=== PATIENT | male | born 1955 | race Caucasian/White ===

== ENCOUNTER 2020-04-20 09:44 | Emergency (ER) | payer MEDICARE, SELFPAY ==
[2020-04-20 09:56] VITALS: PULSE 90; RESP 18; TEMP 36.1; O2SAT 95; BMI 27.3
--- NOTE | 2020-04-20 10:09 | XR_ITS ---
WS: [id number] Mandible series, 5 views, 04/20/2020 Clinical Data: right side open sore, infected x months Comparison: None. Findings: The patient is edentulous except for tooth #32, an impacted wisdom tooth at the right angle of the ma ndible. No fractures or dislocations of the mandible can be seen. The facial bones are intact. No bon e destruction or erosion is seen. The patient has had an anterior cervical disc fusion of the lower c ervical spine. XR/XR mandible min 4V [id number] Impression: Negative mandible series
--- NOTE | 2020-04-20 10:11 | W.ED.DENTAL ---
HPI - Dental/Oral General: Chief complaint: Dental/Oral Stated complaint: DENTAL Time Seen by Provider: 04/20/20 09:44 History of Present Illness: HPI Narrative: Patient states he had his teeth out 7 8 months ago but he is got open sore in his right mandible that is been draining pus for the last few weeks and just getting worse he says he can wear his upper dentures but he cannot wear his lower and is rubbed open area there Onset (ago): week(s) Duration: constant Severity: mild Associated symptoms: Denies fever(s) Review of Systems Const: Denies: fever(s), chills or body aches Eyes: Denies: change in vision or blurry vision ENMT: Reports: other (Sore inside his mouth from dentures upper plate rubbing on gum); Denies: throat pain or nasal congestion Card: Denies: chest pain or dyspnea on exertion Resp: Denies: dyspnea, productive cough or non-productive cough GI: Denies: abdominal pain, nausea or vomiting : Denies: difficulty urinating Musc: Denies: extremity pain Skin/Breast: Denies: rash Neuro: Denies: headache(s) Psych: Denies: anxiety or depression Roge/Lymph: Denies: easy bruising PFS ED PFSH: Social History (Updated 10/21/19 @ 10:36 by Aga London LPN) Smoking and tobacco status: current every day smoker Physical Exam Const: COMMON NORMALS: no acute distress, average body habitus and patient oriented x3 HENMT: COMMON NORMALS: normocephalic HEAD & SCALP: normal to inspection and normocephalic FACE & SINUS: normal facial exam MOUTH: other (Has an open sore that he is able to push on his mandible at the rear area where his wisdom tooth would normally be located and can push pus from there is about 1 to 2 mm in size no redness or swelling noted around it no swelling in the lymph glands in the jaw does not appear tender) Eye: COMMON NORMALS: conjunctivae normal GENERAL EYE: appearance normal, both eyes and all related structures CONJUNCTIVA: Yes conjunctivae normal Neck/C-Spine: COMMON NORMALS: no JVD Chest: COMMONS NORMALS: normal inspection of the chest Resp: COMMON NORMALS: normal respiratory effort and clear to auscultation bilaterally AUSCULTATION: clear to auscultation bilaterally Cardio: COMMON NORMALS: no JVD, regular rate and regular rhythm RATE: regular rate RHYTHM: regular rhythm GI: COMMON NORMALS: Normal to inspection, nondistended, normoactive bowel sounds present Extremity: COMMON NORMALS: normal to inspection and full ROM Neuro: COMMON NORMALS: patient oriented x3 Course Vital Signs: Vital signs: Vital Signs Temperature 96.9 F L 04/20/20 09:56 Pulse Rate 90 04/20/20 09:56 Respiratory Rate 18 04/20/20 09:56 Pulse Oximetry 95 04/20/20 09:56 Discharge Plan Discharge Prescriptions: No Action lisinopril 5 mg tablet 5 mg PO DAILY RF: 0 venlafaxine 75 mg capsule,extended release 24hr 75 mg PO DAILY RF: 0 aspirin [Adult Aspirin Regimen] 81 mg tablet,delayed release (DR/EC) 81 mg PO DAILY RF: 0 ondansetron HCl [Zofran] 4 mg tablet 4 mg PO Q6H MDD 3 tablets per day PRN (Reason: nausea and vomiting) Qty: 20 RF: 0 lisinopril 5 mg tablet 5 mg PO DAILY Qty: 90 RF: 3 Coding Level of Care Code ED [employer] 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
[2020-04-20 11:08] VITALS: BP 164/86; PULSE 83; RESP 16; O2SAT 95
== END 2020-04-20 11:08 | disposition home or self-care (01) ==
PROVIDERS: Emergency Provider Nurse Practitioner Family; PCP Family Medicine
DX: K08.89 Other specified disorders of teeth and supporting structures (principal); Z79.82 Long term (current) use of aspirin; F17.210 Nicotine dependence, cigarettes, uncomplicated
CPT/HCPCS: 12345; 70110; 87070; 87077; 87186; 99281; 99283

== ENCOUNTER → 2022-09-11 14:26 | Outpatient (BNVA) | payer OTHER, SELFPAY | PROVIDERS: PCP Family Medicine; Visit Provider Specialist | DX: M79.641 Pain in right hand (principal); M79.642 Pain in left hand; R20.0 Anesthesia of skin; R20.2 Paresthesia of skin | CPT/HCPCS: 73130 ==

== ENCOUNTER → 2023-04-17 10:42 | Outpatient (BNVA) | payer OTHER, SELFPAY | PROVIDERS: PCP Family Medicine Adult Medicine; Visit Provider Family Medicine Adult Medicine | DX: I10 Essential (primary) hypertension (principal); R10.11 Right upper quadrant pain; R16.0 Hepatomegaly, not elsewhere classified; M79.641 Pain in right hand; M79.642 Pain in left hand; M79.2 Neuralgia and neuritis, unspecified; I25.10 Atherosclerotic heart disease of native coronary artery without angina pectoris; G47.00 Insomnia, unspecified | CPT/HCPCS: 80053; 84443; 85007; 85027; 85651; 86431 ==

== ENCOUNTER 2023-04-21 20:57 | Emergency (ER) | payer MEDICARE, SELFPAY ==
[2023-04-21 21:02] VITALS: BP 101/71; PULSE 96; RESP 29; TEMP 36.9; O2SAT 92; BMI 22.1
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
[2023-04-21] MEDS: tetanus-dipt-pertussis 0.5 mL SDV IM (21:51)
== END 2023-04-22 00:01 | disposition home or self-care (01) ==
PROVIDERS: Emergency Provider Emergency Medicine; PCP Family Medicine Adult Medicine
DX: S09.8XXA Other specified injuries of head, initial encounter (principal); S20.211A Contusion of right front wall of thorax, initial encounter; I25.10 Atherosclerotic heart disease of native coronary artery without angina pectoris; E78.5 Hyperlipidemia, unspecified; I10 Essential (primary) hypertension; Z95.1 Presence of aortocoronary bypass graft; F17.210 Nicotine dependence, cigarettes, uncomplicated; Y04.2XXA Assault by strike against or bumped into by another person, initial encounter; Y07.44 Child, perpetrator of maltreatment and neglect; Z79.82 Long term (current) use of aspirin; S00.83XA Contusion of other part of head, initial encounter; Z23 Encounter for immunization
CPT/HCPCS: 70450; 71101; 90471; 90715; 99284

== ENCOUNTER 2023-05-18 08:14 | Inpatient (IN) | payer MEDICARE, SELFPAY ==
[2023-05-18] VITALS (18 sets, daily range): BP systolic 150–178; BP diastolic 79–99; PULSE 61–90; RESP 16–22; TEMP 36.5–36.7; O2SAT 94–100
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
--- NOTE | 2023-05-18 08:37 | CTR_ITS ---
PROCEDURE INFORMATION: Exam: CT Abdomen And Pelvis With Contrast Exam date and time: 05/18/2023 9:35 AM Age: 67 years old Clinical indication: Abdominal pain; Acute; Prior surgery; Surgery date: 6+ months; Surgery type: Appy; Additional info: Abd pain TECHNIQUE: Imaging protocol: Computed tomography of the abdomen and pelvis with contrast. Radiation optimization: All CT scans at this facility use at least one of these dose optimization techniques: automated exposure control; mA and/or kV adjustment per patient size (includes targeted exams where dose is matched to clinical indication); or iterative reconstruction. Contrast material: OMNI 350; Contrast volume: 100 ml; Contrast route: INTRAVENOUS (IV); REPORTING DATA: Count of CT and Cardiac NM exams in prior 12 months: This patient has received [address] and 0 known cardiac nuclear medicine studies in the 12 months prior to the current study. COMPARISON: CR (CHEST, ) 04/21/2023 9:25 PM RADIATION DOSE METRICS: Total DLP (mGy-cm): 418.85 FINDINGS: Lungs: There is gravity dependent and streaky atelectasis is noted at the lung bases. Liver: Normal. No mass. Gallbladder and bile ducts: The gallbladder is partially contracted with a layering calcific stone in the fundus. Pancreas: Normal. No ductal dilation. Spleen: Normal. No splenomegaly. Adrenal glands: Normal. No mass. Kidneys and ureters: The kidneys enhance symmetrically and there is no hydronephrosis. Left renal hilar calcifications are vascular. Stomach and bowel: There is a large enterocolic intussusception involving the terminal ileum and ascending segment of the colon extending into the transverse segment. Heterogeneous enhancement of the apex of the intussusception is suspicious for neoplasm which is likely the cause of the intussusception. Appendix: No evidence of appendicitis. Intraperitoneal space: There is a small amount of free pelvic fluid. Vasculature: Unremarkable. No abdominal aortic aneurysm. Lymph nodes: Unremarkable. No enlarged lymph nodes. Urinary bladder: The urinary bladder is contracted. Reproductive: Unremarkable as visualized. Bones/joints: Lumbar spondylosis is noted. Soft tissues: Unremarkable. CT/CT abdomen pelvis w con* [id number] IMPRESSION: Large enterocolic intussusception, likely due to malignancy. Recommend surgical consultation. THIS REPORT CONTAINS FINDINGS THAT MAY BE CRITICAL TO PATIENT CARE. The findings were verbally communicated via telephone conference with MIRIAM HDEZ at 10:06 AM CDT on 05/18/2023. The findings were acknowledged and understood.
[2023-05-18 08:56] LABS: Basophils # 0.1 10^3/uL (0.0-0.1); Basophils % 0.7 %; Eosinophils # 0.4 10^3/uL (0.0-0.8); Eosinophils % 3.6 %; Lymphocytes # 1.5 10^3/uL (0.8-4.8); Lymphocytes % 14.3 %; Mean Corpuscular HGB Conc 30.3 g/dL (30-55); Mean Corpuscular Hemoglobin 23.6 pg (27-33); Mean Corpuscular Volume 77.8 fl (82-101); Mean Platelet Volume 9.5 fL (7.4-10.4); Monocytes # 0.6 10^3/uL (0.2-0.9); Monocytes % 6.1 %; Neutrophils # 7.73 10^3/uL (1.8-7.7); Nucleated Red Blood Cells % 0 %; Platelet Count 535 10^3/cmm (157-399); Red Blood Count 4.37 10^6/uL (3.85-5.65); Red Cell Distribution Width 16.6 % (12.1-15.1)
[2023-05-18 09:17] LABS: Alanine Aminotransferase 7 U/L (0-41); Albumin Level 3.8 g/dL (3.5-5.2); Alkaline Phosphatase 88 U/L (40-130); Anion Gap 14.4 (5-19); Aspartate Amino Transferase 10 U/L (0-40); Blood Urea Nitrogen 16 mg/dL (8-23); Calcium 9.2 mg/dL (8.5-10.5); Carbon Dioxide 27 mmol/L (22-29); Chloride 100 mmol/L (98-107); Creatinine Clr Calc Pharmacy 92.9589; Globulin 3.2 g/dL (1.3-4.6); Glomerular Filtration Rate 96.7 mL/min (90-130); Glucose 117 mg/dL (65-115); Lipase 24 U/L (13-60); Osmolality Calculated 286 mOsm/kg (285-295); Potassium 4.4 mmol/L (3.5-5.1); Sodium 137 mmol/L (136-145); Total Bilirubin 0.2 mg/dL (0.15-1.2)
[2023-05-18 09:21] LABS: Add Urine Culture? No; Add Urine Microscopic? YES; Bacteria Urine TRACE /hpf; Bilirubin Urine Neg (Negative); Blood Urine Neg (Negative); Glucose Urine UA Norm (Normal); Ketones Urine Negative (Negative); Leukocyte Esterase Urine Negative (Negative); Mucus Urine 1+ /hpf; Nitrate Urine Negative (Negative); Protein Urine Trace (Negative); RBC Urine 0-4 /hpf (0-2); Squamous Epithelial Cell Urine 0-4 /hpf (0-5); Urine Appearance Clear (CLEAR); Urine Color Yellow (Yellow); Urobilinogen Urine Norm (Negative); WBC Urine 0-4 /hpf (0-5); pH Urine 5 (5-7)
[2023-05-18] MEDS: iohexol 350 mg/mL 500 mL Btl (per mL) IV (09:39)
--- NOTE | 2023-05-18 09:44 | PC.NURSE ---
pt off unit, went to CT
--- NOTE | 2023-05-18 10:50 | XRR_ITS ---
PROCEDURE INFORMATION: Exam: XR Chest Exam date and time: 05/18/2023 5:00 PM Age: 67 years old Clinical indication: Dyspnea; Additional info: Dyspnea/cough TECHNIQUE: Imaging protocol: Radiologic exam of the chest. Views: 1 view. COMPARISON: CR (CHEST, ) 04/21/2023 9:25 PM FINDINGS: Tubes, catheters and devices: Enteric tube seen entering into the stomach and terminating outside the field of view. Lungs: Unremarkable. No consolidation. Pleural spaces: Unremarkable. No pleural effusion. No pneumothorax. Heart/Mediastinum: Unremarkable. No cardiomegaly. Bones/joints: ACDF hardware noted in the lower cervical spine. XR/XR chest 1V portable [id number] IMPRESSION: No acute findings.
--- NOTE | 2023-05-18 10:50 | ECG_ITS ---
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 Measurements Intervals [place] Rate: 60 P: 61 NV: 195 QRS: 64 QRSD: 94 T: 63 QT: 403 QTc: 403 Interpretive Statements SINUS RHYTHM Compared to ECG 10/04/2014 07:41:00 No significant changes Electronically Signed On 05-18-2023 14:39:47 CDT by Juan Young M.D. [id number]
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
[2023-05-18] MEDS: piperacillin-tazobactam 3.375 GM in sodium chloride 0.9% (plus) 50 ML IV (11:06)
--- NOTE | 2023-05-18 11:09 | PC.NURSE ---
20G IV in R A/C and L A/C, pt placed in gown, urinary cath placed prior to surgery
[2023-05-18] MEDS: fentaNYL 50 mcg/mL INJ 2mL 100 MCG IVP (11:35)
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
[2023-05-18] MEDS: midazolam 1 mg/mL INJ 2 mL 2 MG IVP (11:49)
[2023-05-18] MEDS: sodium chloride 0.9% 1,000 ML 30 ML IV (11:50)
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
[2023-05-18] MEDS: metroNIDAZOLE IV 500 MG/100 ML PREMIX 100 MG IV (12:17)
--- NOTE | 2023-05-18 14:51 | PC.RESP ---
EKG canceled D/T pt not being available within hour.
--- NOTE | 2023-05-18 15:01 | PM.OP ---
Operative Report Date of procedure: May 18, 2023 Pre-op diagnosis: Large bowel intussusception Post-op diagnosis: Large bowel intussusception, ascending colon mass Procedure done: Exploratory laparotomy, lysis of additions, right tom-colectomy with primary anastomosis Specimens removed/disposition: Right colon Surgeon: Enoc Newell MD Surgical Instrument Maker: MAGALYS OR Staff Estimated blood loss: 100cc Complications: none Findings: There was severe lesions of the omentum to the anterior abdominal wall and surrounding the ascending colon. There was a very large colonic intussusception, upon palpation it was apparent that there was a mass in the colon, there was significant inflammation at the level of the vascular pedicle, concerning for infiltrative lymph nodes, extension of the mass was noted up to the level of the retroperitoneum. Brief History: 67-year-old male who presents to the hospital with severe abdominal pain, he had a history of abdominal pain for the last [address] scan done in the ER showed evidence of a very large colonic intussusception involving the terminal ileum and ascending colon into the transverse colon, there was concern for a colonic mass at the level of the intussusception. After extensive discussion regarding the risk of benefits we decided to proceed to the operating room for an emergent right hemicolectomy, as documented in my consult note. Procedure: The patient was brought into the OR, placed in the supine position general esthesia was given. The abdomen was prepped and draped in the usual sterile fashion. Timeout was conducted. A midline laparotomy incision measuring about 20 cm was made, the abdominal cavity was accessed. A extra-large Shon wound protector was then placed in the wound. The omentum was noted to be densely adhesive to the right colon and right anterior abdominal wall, extensive lysis of additions was done using blunt and sharp dissection, once the omentum was liberated it revealed a very large colonic intussusception, which appeared to have a very chronic component with formation of additions from the colon to the retroperitoneum, it was also apparent that there was possible mass at the level of the colon upon palpation, I also noticed severe induration of the mesentery traveling down to the level of the vascular pedicle, which likely indicates infiltrative lymph nodes. I then proceeded with a exploratory laparotomy evaluating the colon small bowel, remainder of the colon, liver, stomach and spleen, no additional infiltrative lesions were identified. I started my dissection by medializing the right colonic mass and taking down the white line of Toldt using electrocautery, but there were severe adhesions noted at this area from the colon to the retroperitoneum, which is not usually encountered. I therefore decided to proceed with the craniocaudal dissection starting by the omentum from the transverse colon, once the omentum was I took down adhesions from the hepatic flexure to the gallbladder and the omentum, the transverse colon and hepatic flexures were completely mobilized revealing a healthy duodenum behind. Once this mobilization was completed I placed my attention to the right colon, I decided to continue the immobilization from the caudal direction, by incising the peritoneum below the area where the cecum was located. Extensive dissection and mobilization was achieved with blunt and sharp dissection taking careful consideration of not injuring any surrounding structures, once the mass was completely mobilized and medialized, it was apparent that infiltrative nodes to the vascular pedicle needed to be resected with the specimen, therefore I decided to proceed with transection of the GI tract before undertaking the dissection of the vascular pedicle. I transected the terminal ileum about 5 cm from the mass using a 75 mm blue load AMADOR stapler, I later transected the transverse colon about 7 cm from the mass using a 75 mm blue load AMADOR stapler. At this point the mass was completely mobilized, severe attachments to the retroperitoneum were taken down using careful dissection and electrocautery, once the vascular pedicle was individualized, I transected the ileocolic vessels at the base using LigaSure. The specimen was completely liberated after transection of the remainder of the mesocolon with ligasure. Hemostasis was verified in the area of the colon bed. I then proceeded to fashion a [id number], functional end-to-end anastomosis between the terminal ileum and the transverse colon I did this with a 75 mm blue load AMADOR stapler, the common enterotomy was then closed with a 60 mm blue load TA stapler. Stay sutures were placed with #3-0 Vicryl to reinforce the anastomosis, I then proceeded to close the mesenteric defect with #3-0 Vicryl. The cavity was then irrigated with warm saline. Hemostasis was verified. Omentum was returned to anatomical position and used to cover the anastomosis. The Shon wound protector was removed, with change instruments and gloves to proceed with closure of the fascia and the skin. The fascia was closed with #1 looped PDS, the fascia was then irrigated with warm saline and the skin closed with giuliano. Sterile dressing was applied at the end of the procedure all counts were correct. The patient was extubated and transferred to the PACU in stable condition, he received a tap block by anesthesia in the PACU.
[2023-05-18] MEDS: fentaNYL 50 mcg/mL INJ 2mL IVP (15:21)
--- NOTE | 2023-05-18 15:24 | ANE.PACU2 ---
Inpatient post-anesthesia follow up: Airway intact: Yes Vital signs: Temperature 97.9 F Pulse Rate 61 Respiratory Rate 18 Blood Pressure 165/79 Pulse Oximetry 98 Oxygen Delivery Me thod Room Air Oxygen Flow Rate 6 Fraction of Inspir ed Oxygen Hydration adequate: Yes Nausea and vomiting: No Pain level: 1 Mental status: Baseline Additional Comments: Bothered by sanon catheter. Denies abdominal pain.
--- NOTE | 2023-05-18 16:55 | ECG_ITS ---
[facility] Test Date: 2023-05-18 Pat Name: Glenn Berg Department: Room: 275 Gender: Male Director Advanced: : 1955 Requested By: Zaid Sebastian Order Number: [id number] Nicol MD: Juan Young M.D. Measurements Intervals [place] Rate: 84 P: 51 OR: 194 QRS: 51 QRSD: 102 T: 43 QT: 382 QTc: 453 Interpretive Statements SINUS RHYTHM Compared to ECG 05/18/2023 10:56:38 No significant changes Electronically Signed On 05-19-2023 16:19:53 CDT by Juan Young M.D. [id number]
[2023-05-18] MEDS: HYDROmorphone 1 mg/mL INJ 1 mL 0.5 MG IVP (17:15)
[2023-05-18 17:47] LABS: INR 1.05 (0.8-1.2)
[2023-05-18 17:48] LABS: Partial Thromboplastin Time 32.4 SECONDS (23.9-36.7)
[2023-05-18] MEDS: sodium chloride 0.9% 1,000 ML 75 ML IV (17:53)
[2023-05-18 17:54] LABS: Lactate (Lactic Acid level) 1.5 mmol/L (0.5-2.2)
[2023-05-18 17:55] LABS: Troponin(5th) Baseline 15 ng/L (0-15)
[2023-05-18 18:00] LABS: C Reactive Protein 18.9 mg/L (0.0-4.9)
[2023-05-18 18:08] LABS: Procalcitonin 0.08 ng/mL (0-0.5)
[2023-05-18] MEDS: pantoprazole 40 mg SDV IVP (18:23)
[2023-05-18] MEDS: morphine 4 mg/mL SDV 1 mL 2 MG IVP (19:43)
[2023-05-18 20:51] LABS: Troponin 5 2HR 22.51 ng/L (0-15)
[2023-05-18 20:55] LABS: Troponin 5 2HR Delta 7.51 ABS# (0-10)
[2023-05-18] MEDS: HYDROmorphone 1 mg/mL INJ 1 mL IVP (22:41)
[2023-05-18 23:47] LABS: Troponin 5 6HR 21.04 ng/L (0-15); Troponin 5 6HR Delta 6.04 ng/L (0-12)
[2023-05-19] VITALS (11 sets, daily range): BP systolic 128–150; BP diastolic 61–74; PULSE 63–90; RESP 16–18; TEMP 36.6–37.6; O2SAT 95–99
[2023-05-19] MEDS: morphine 4 mg/mL SDV 1 mL 2 MG IVP ×2 (00:23→03:55)
[2023-05-19 05:37] LABS: Basophils % 0.1 %; Eosinophils % 0.1 %; Hematocrit 31.4 % (37-53); Lymphocytes # 1.2 10^3/uL (0.8-4.8); Lymphocytes % 8.2 %; Mean Corpuscular HGB Conc 30.3 g/dL (30-55); Mean Corpuscular Hemoglobin 23.3 pg (27-33); Mean Platelet Volume 9.6 fL (7.4-10.4); Monocytes # 0.9 10^3/uL (0.2-0.9); Monocytes % 6.2 %; Neutrophils # 12.01 10^3/uL (1.8-7.7); Neutrophils % 85.1 %; Nucleated Red Blood Cells % 0 %; Platelet Count 472 10^3/cmm (157-399); Red Blood Count 4.08 10^6/uL (3.85-5.65); Red Cell Distribution Width 16.5 % (12.1-15.1); White Blood Count 14.12 10^3/uL (3.29-11.43)
[2023-05-19 05:58] LABS: Alanine Aminotransferase < 5 U/L (0-41); Alkaline Phosphatase 69 U/L (40-130); Anion Gap 14.1 (5-19); Aspartate Amino Transferase 12 U/L (0-40); Blood Urea Nitrogen 16 mg/dL (8-23); Calcium 8.4 mg/dL (8.5-10.5); Carbon Dioxide 26 mmol/L (22-29); Chloride 105 mmol/L (98-107); Creatinine Clr Calc Pharmacy 82.6301; Globulin 3.2 g/dL (1.3-4.6); Glomerular Filtration Rate 84.4 mL/min (90-130); Glucose 112 mg/dL (65-115); Osmolality Calculated 292 mOsm/kg (285-295); Potassium 5.1 mmol/L (3.5-5.1); Sodium 140 mmol/L (136-145); Total Bilirubin 0.3 mg/dL (0.15-1.2); Total Protein 6.2 g/dL (6.6-8.7)
[2023-05-19] MEDS: sodium chloride 0.9% 1,000 ML 75 ML IV ×2 (06:00→21:00)
[2023-05-19 06:10] LABS: Carcinoembryonic Antigen 1.8 ng/mL (0.0-4.7)
--- NOTE | 2023-05-19 07:40 | PM.PN ---
Subjective Subjective: Is a 67-year-old male who presented with a large bowel intussusception likely due to colon cancer. He is postoperative day 1 status post exploratory laparotomy, right hemicolectomy. Patient is stable after surgery, only complaint is incisional pain at the level of the abdomen that has been difficult to control with current regimen. NG tube connected to low intermittent wall suction with minimal output, Juares catheter in place with clear urine. Vitals/I&O/Wt Last Vital Signs Temp 99.7 F H 05/19/23 04:20 Pulse 82 05/19/23 06:00 Resp 17 05/19/23 04:20 BP 136/68 05/19/23 04:20 Pulse Ox 96 05/19/23 04:20 O2 Del Method Room Air 05/18/23 17:39 O2 Flow Rate 6 05/18/23 15:09 05/18/23 05/19/23 05/19/23 22:59 06:59 14:59 Intake Total 100 / 1250 908.75 / 2158.75 Output Total 700 / 700 450 / 1150 Balance -600 / 550 458.75 / 1008.75 Weight last 48 hrs Weight 165 lb Physical Exam Const: OTHER: Alert and oriented, in pain HENMT: OTHER: NG tube in place GI: OTHER: Abdomen is soft, nondistended, surgical incision covered with dressing. There is tenderness to palpation in the prem-incisional area : OTHER: Juares catheter in place. Urinary Catheter Management: Juares: Cath Placed During This Visit: yes Reason for Continuing Indwelling Catheter: Required Immobilization for Trauma or Surgery or Anesthesia Urinary Catheter Date of Insertion: 05/18/23 Urinary Catheter Time of Insertion: 11:15 Data 05/19/23 05:25 05/19/23 05:25 A&P Assessment and plan (1) Colonic mass: (2) Intussusception of colon: Plan After complete history, physical examination and review of all available clinical data the following is my assessment. Patient is showing adequate progress postop. Pain control has remained challenging in the initial postoperative period. At this point may consider is important to start multimodal pain therapy to attempt to control patient's pain. I will start the pain initiating IV Tylenol, IV Toradol and as needed Dilaudid. I have encouraged the patient to ambulate as soon as he feels comfortable with, once patient is ambulating Juares catheter can be removed. NG tube will remain for 24 more hours to allow for return of bowel function. Attestations Medical Necessity Statement*: Patient will require 48 to 72 hours more of hospital stay for management and postoperative care after an open right hemicolectomy. Coding Level of Care Code Acute Code for [facility] Diagnoses Colonic mass K63.89 Intussusception of colon K56.1
[2023-05-19] MEDS: HYDROmorphone 1 mg/mL INJ 1 mL 0.5 MG IVP (08:02)
[2023-05-19] MEDS: ketorolac 30 mg/mL INJ 15 MG IVP ×3 (08:36→20:06)
[2023-05-19] MEDS: acetaminophen 1,000 MG/100 ML PIGGYBACK 400 MG IV ×3 (08:36→22:49)
[2023-05-19] MEDS: HYDROmorphone 1 mg/mL INJ 1 mL IVP ×4 (10:53→21:34)
[2023-05-19] MEDS: pantoprazole 40 mg SDV IVP (17:32)
--- NOTE | 2023-05-19 19:12 | PM.PN ---
Subjective Subjective: Pain in his abdomen despite receiving pain medications this morning. He is worried that turning in bed will trigger pain. Speaking calmly. Does report pain . Vitals/I&O/Wt Last Vital Signs Temp 98.7 F 05/19/23 15:34 Pulse 74 05/19/23 15:34 Resp 18 05/19/23 15:34 BP 150/74 05/19/23 15:34 Pulse Ox 97 05/19/23 15:34 O2 Del Method Room Air 05/19/23 15:34 O2 Flow Rate 6 05/18/23 15:09 05/19/23 05/19/23 05/19/23 06:59 14:59 22:59 Intake Total 908.75 / 2158.75 100 / 100 Output Total 450 / 1150 400 / 400 Balance 458.75 / 1008.75 100 / 100 -400 / -300 Weight last 48 hrs Weight 74.843 kg Physical Exam Narrative: Accompanied by family including his Const: COMMON NORMALS: patient oriented x3 and alert GENERAL APPEARANCE: cooperative ORIENTATION/CONSCIOUSNESS: Yes awake HENMT: COMMON NORMALS: oropharynx normal Neck/C-Spine: COMMON NORMALS: no JVD Resp: COMMON NORMALS: normal respiratory effort and clear to auscultation bilaterally AUSCULTATION: clear to auscultation bilaterally Cardio: COMMON NORMALS: no JVD, regular rhythm, S1 normal heart sound present, S2 normal heart sound present and No murmurs present (Cardio) RHYTHM: regular rhythm HEART SOUNDS: S1 normal heart sound present and S2 normal heart sound present GI: PALPATION: Yes Tenderness to palpation present (GI) OTHER: Midline abdominal dressing Subdued bowel sounds Extremity: COMMON NORMALS: no joint enlargement and no pedal edema Neuro: COMMON NORMALS: patient oriented x3 and moves all extremities SENSORIUM/ORIENTATION: Yes alert Skin: COMMON NORMALS: no rashes or lesions noted GENERAL SKIN EXAM: no rashes or lesions noted Urinary Catheter Management: Juares: Cath Placed During This Visit: yes Reason for Continuing Indwelling Catheter: Required Immobilization for Trauma or Surgery or Anesthesia Urinary Catheter Date of Insertion: 05/18/23 Urinary Catheter Time of Insertion: 11:15 Data 05/19/23 05:25 05/19/23 05:25 A&P Assessment and plan (1) Intussusception of colon: (2) Chronic GERD: (3) CAD (coronary artery disease): (4) Dyslipidemia: (5) HTN (hypertension): (6) Current smoker: Plan Colon intussusception Status post laparotomy, lysis of adhesions, right hemicolectomy with primary stenosis on 05/18. Still in pain, appreciate surgical documentation from this morning, pain Regimen. As he is still in pain nursing reaching out to surgery for additional instructions. Discussed with patient and family certainly if possible reduce opioid use, but sounds like he is requiring more pain control currently. Has required IV Dilaudid. Encouraged getting up and ambulation if pain control will allow. Encourage incentive spirometer. Continue bowel rest, unable to take oral intake yet, reassess for return of bowel function. Gentle IV hydration. CEA reviewed. Blood counts reviewed, noted mild leukocytosis, mild neutrophilia. Mild thrombocytosis. Possibly stress related. Follow-up. Discussed with nursing. Discussed with case management. History of CAD. Free of any chest pain. History of cath in 2014 1-LM has luminal irregularities 2-LAD has 50% mid and diffusely diseased 75% distal tapering vessel stenosis .mid lesion is not significant by FFR (0.91), while distal lesion is significant by FFR (0.80).Since distal vessel is diffusely diseased less than 2.0mm tapering vessel it is not amenable to intervention 3-LCx is a moderate size and caliber vessel with 30% Ostial stenosis 4-RCA is a non dominant small caliber vessel which is chronically occluded in its proximal segment fills in retrogradely from L>R Collaterals from distal LAD Troponin series reviewed. Mild elevation. No peak. Chest x-ray reviewed. Smoker, nicotine replacement as needed Attestations Medical Necessity Statement*: Continue admission for assessment management following intussusception, pending return of bowel function, optimization of pain control. Diagnoses Intussusception of colon K56.1 Chronic GERD K21.9 CAD (coronary artery disease) I25.10 Dyslipidemia E78.5 HTN (hypertension) I10 Current smoker F17.200
[2023-05-20] VITALS (17 sets, daily range): BP systolic 149–178; BP diastolic 65–77; PULSE 53–96; RESP 16–20; TEMP 36.6–37.2; O2SAT 95–97
[2023-05-20] MEDS: ketorolac 30 mg/mL INJ 15 MG IVP ×4 (00:44→22:18)
[2023-05-20] MEDS: HYDROmorphone 1 mg/mL INJ 1 mL IVP ×2 (01:23→06:09)
[2023-05-20] MEDS: pantoprazole 40 mg SDV IVP ×2 (04:49→16:17)
[2023-05-20 05:31] LABS: Basophils # 0.1 10^3/uL (0.0-0.1); Basophils % 0.5 %; Eosinophils # 0.4 10^3/uL (0.0-0.8); Lymphocytes # 1.8 10^3/uL (0.8-4.8); Lymphocytes % 15.1 %; Mean Corpuscular Hemoglobin 23.2 pg (27-33); Mean Corpuscular Volume 77.4 fl (82-101); Mean Platelet Volume 10.4 fL (7.4-10.4); Monocytes # 0.8 10^3/uL (0.2-0.9); Monocytes % 6.9 %; Neutrophils # 8.76 10^3/uL (1.8-7.7); Neutrophils % 74.2 %; Nucleated Red Blood Cells % 0 %; Platelet Count 465 10^3/cmm (157-399); Red Blood Count 3.49 10^6/uL (3.85-5.65); Red Cell Distribution Width 16.7 % (12.1-15.1); White Blood Count 11.82 10^3/uL (3.29-11.43)
[2023-05-20 05:53] LABS: Alanine Aminotransferase < 5 U/L (0-41); Albumin Level 3.1 g/dL (3.5-5.2); Alkaline Phosphatase 62 U/L (40-130); Anion Gap 12.1 (5-19); Aspartate Amino Transferase 15 U/L (0-40); Blood Urea Nitrogen 23 mg/dL (8-23); Calcium 8.4 mg/dL (8.5-10.5); Carbon Dioxide 27 mmol/L (22-29); Chloride 104 mmol/L (98-107); Creatinine Clr Calc Pharmacy 82.6301; Globulin 2.8 g/dL (1.3-4.6); Glomerular Filtration Rate 84.4 mL/min (90-130); Glucose 81 mg/dL (65-115); Osmolality Calculated 291 mOsm/kg (285-295); Potassium 4.1 mmol/L (3.5-5.1); Sodium 139 mmol/L (136-145); Total Bilirubin 0.3 mg/dL (0.15-1.2); Total Protein 5.9 g/dL (6.6-8.7)
--- NOTE | 2023-05-20 07:45 | PM.PN ---
Subjective Subjective: Postoperative day 2 status post expiratory laparotomy right mid colectomy for right colon mass with ileocolonic intussusception. Patient pulled out NG tube overnight. He is doing okay, pain is better controlled, he states that he has been passing some gas from below. Overall looks in good spirits. Vitals/I&O/Wt Last Vital Signs Temp 98.1 F 05/20/23 03:58 Pulse 66 05/20/23 07:29 Resp 16 05/20/23 07:29 BP 169/76 05/20/23 03:58 Pulse Ox 95 05/20/23 07:29 O2 Del Method Room Air 05/20/23 07:29 O2 Flow Rate 6 05/18/23 15:09 05/19/23 05/20/23 05/20/23 22:59 06:59 14:59 Intake Total 1100 / 1200 100 / 1300 Output Total 400 / 400 200 / 600 Balance 700 / 800 -100 / 700 Weight last 48 hrs Weight 165 lb Physical Exam GI: OTHER: Abdomen is soft, appropriately tender to palpation in the prem-incisional area, there is no abdominal distention at the moment. : OTHER: Juares catheter in place Urinary Catheter Management: Juares: Cath Placed During This Visit: yes Reason for Continuing Indwelling Catheter: Other Urinary Catheter Date of Insertion: 05/18/23 Urinary Catheter Time of Insertion: 11:15 Data 05/20/23 04:56 05/20/23 04:56 A&P Assessment and plan (1) Colon cancer: Plan Postoperative day 2 status post ex lap, right Zee colectomy for colonic mass causing ileocolonic intussusception. Patient is progressing well. NG tube was removed overnight. I am okay with the starting clears and see how the patient tolerates. I will switch some of the medication to oral. Juares catheter can be removed, patient is to ambulate. All other management by hospitalist team is appreciated Attestations Medical Necessity Statement*: Patient will require 48 hours or more of hospital stay for postoperative management after ex lap. Coding Level of Care Code Acute Code for [facility] Fwd Diagnoses Colon cancer C18.9
[2023-05-20] MEDS: acetaminophen 1,000 MG/100 ML PIGGYBACK 400 MG IV ×3 (08:17→22:20)
[2023-05-20] MEDS: gabapentin 400 mg Capsule 800 MG PO (09:37)
[2023-05-20] MEDS: lisinopril 5 mg Tablet PO (09:37)
[2023-05-20] MEDS: oxyCODONE 5 mg IR Tab/Cap PO ×2 (09:38→14:13)
[2023-05-20] MEDS: HYDROmorphone 1 mg/mL INJ 1 mL 0.4 MG IVP ×2 (12:16→18:45)
--- NOTE | 2023-05-20 15:24 | P.PN_ITS ---
Subjective Subjective: Pain is slightly better today, although still there. He is working with surgery for optimization of pain control. Discussed with him and his additional strategies. Encouraged also attempted ambulation which he says he intends to try. He is trying diet advancement with clear liquids. No nausea or vomiting. Passing some small amounts of flatus. Vitals/I&O/Wt Last Vital Signs Temp 97.9 F 05/20/23 12:00 Pulse 60 05/20/23 12:00 Resp 17 05/20/23 14:13 BP 162/67 05/20/23 12:00 Pulse Ox 95 05/20/23 12:00 O2 Del Method Room Air 05/20/23 07:29 O2 Flow Rate 6 05/18/23 15:09 05/20/23 05/20/23 05/20/23 06:59 14:59 22:59 Intake Total 100 / 1300 1460 / 1460 Output Total 200 / 600 Balance -100 / 700 1460 / 1460 Physical Exam Narrative: Accompanied by family including his Const: COMMON NORMALS: patient oriented x3 and alert GENERAL APPEARANCE: cooperative ORIENTATION/CONSCIOUSNESS: Yes awake HENMT: COMMON NORMALS: oropharynx normal Neck/C-Spine: COMMON NORMALS: no JVD Resp: COMMON NORMALS: normal respiratory effort and clear to auscultation bila terally AUSCULTATION: clear to auscultation bilaterally Cardio: COMMON NORMALS: no JVD, regular rhythm, S1 normal heart sound present, S2 normal heart sound present and No murmurs present (Cardio) RHYTHM: regular rhythm HEART SOUNDS: S1 normal heart sound present and S2 normal heart sound present GI: PALPATION: Yes Tenderness to palpation present (GI) OTHER: Midline abdominal dressing Present bowel sounds Extremity: COMMON NORMALS: no joint enlargement and no pedal edema Neuro: COMMON NORMALS: patient oriented x3 and moves all extremities SENSORIUM/ORIENTATION: Yes alert Skin: COMMON NORMALS: no rashes or lesions noted GENERAL SKIN EXAM: no rashes or lesions noted Urinary Catheter Management: Juares: Cath Placed During This Visit: yes, but has since been removed by the nurse Reason for Continuing Indwelling Catheter: Decision to DC Catheter Urinary Catheter Date of Insertion: 05/18/23 Urinary Catheter Time of Insertion: 11:15 Date Urinary Catheter Removed: 05/20/23 Time Urinary Catheter Discontinued: 10:20 Data 05/20/23 04:56 05/20/23 04:56 A&P Assessment and plan (1) Intussusception of colon: (2) Chronic GERD: (3) CAD (coronary artery disease): (4) Dyslipidemia: (5) HTN (hypertension): (6) Current smoker: Plan Colon intussusception Pain control slightly better, although still bothersome. Reviewed surgery documentation. Reviewed medication changes. Continued optimization of pain control. Continues on IV Dilaudid, staggered with oxycodone to help try to decrease IV opioid. Discussed risks again with him and his . Encouraged additional pain control modalities. Otherwise NGT has been removed. He is having some bowel sounds. Passing small amounts of flatus. Encouraged ambulation. He is trialing clear liquids. Reviewed symptoms to watch out for, seek medical attention in case of any concerns. Noted afebrile. Noted mild leukocytosis with improvement compared to yesterday on review of CBC. Reviewed electrolytes, kidney function, liver parameters. Discussed with case management. Status post laparotomy, lysis of adhesions, right hemicolectomy with primary anastomosis on 05/18. Stop IV fluid. CEA reviewed. Blood counts reviewed, noted mild leukocytosis, mild neutrophilia. Mild thrombocytosis. Possibly stress related. Follow-up. History of CAD. Free of any chest pain. History of cath in 2015 1-LM has luminal irregularities 2-LAD has 50% mid and diffusely diseased 75% distal tapering vessel stenosis .mid lesion is not significant by FFR (0.91), while distal lesion is significant by FFR (0.80).Since distal vessel is diffusely diseased less than 2.0mm tapering vessel it is not amenable to intervention 3-LCx is a moderate size and caliber vessel with 30% Ostial stenosis 4-RCA is a non dominant small caliber vessel which is chronically occluded in its proximal segment fills in retrogradely from L>R Collaterals from distal LAD Troponin series reviewed. Mild elevation. No peak. Chest x-ray reviewed. Smoker, nicotine replacement as needed Attestations Medical Necessity Statement*: Continue admission for assessment management following intussusception, pending return of bowel function, optimization of pain control. and High MDM includes amount and/or complexity of data reviewed/ordered [ previous or external records, resulted lab(s)/test(s), ordered lab(s)/test(s) and other healthcare professional discussion] and described risk of complication, morbidity or mortality of management as documented Diagnoses Intussusception of colon K56.1 Chronic GERD K21.9 CAD (coronary artery disease) I25.10 Dyslipidemia E78.5 HTN (hypertension) I10 Current smoker F17.200
[2023-05-21] VITALS (12 sets, daily range): BP systolic 154–179; BP diastolic 70–75; PULSE 59–72; RESP 16–19; TEMP 36.4–36.9; O2SAT 96–99
[2023-05-21] MEDS: ketorolac 30 mg/mL INJ 15 MG IVP ×4 (03:26→21:15)
[2023-05-21] MEDS: pantoprazole 40 mg SDV IVP ×2 (03:26→16:04)
[2023-05-21 06:26] LABS: Basophils # 0.1 10^3/uL (0.0-0.1); Basophils % 1.2 %; Eosinophils # 0.9 10^3/uL (0.0-0.8); Eosinophils % 10.2 %; Hematocrit 27.7 % (37-53); Lymphocytes # 1.4 10^3/uL (0.8-4.8); Lymphocytes % 15.5 %; Mean Corpuscular Hemoglobin 23.2 pg (27-33); Mean Corpuscular Volume 77.6 fl (82-101); Mean Platelet Volume 10.2 fL (7.4-10.4); Monocytes # 0.5 10^3/uL (0.2-0.9); Monocytes % 5.7 %; Neutrophils # 6.17 10^3/uL (1.8-7.7); Neutrophils % 67.2 %; Nucleated Red Blood Cells % 0 %; Platelet Count 428 10^3/cmm (157-399); Red Blood Count 3.57 10^6/uL (3.85-5.65); Red Cell Distribution Width 16.7 % (12.1-15.1); White Blood Count 9.18 10^3/uL (3.29-11.43)
[2023-05-21 06:44] LABS: Alanine Aminotransferase < 5 U/L (0-41); Alkaline Phosphatase 65 U/L (40-130); Anion Gap 15.1 (5-19); Aspartate Amino Transferase 14 U/L (0-40); Blood Urea Nitrogen 15 mg/dL (8-23); Calcium 8.7 mg/dL (8.5-10.5); Carbon Dioxide 25 mmol/L (22-29); Chloride 104 mmol/L (98-107); Creatinine Clr Calc Pharmacy 82.6301; Glomerular Filtration Rate 84.4 mL/min (90-130); Glucose 92 mg/dL (65-115); Osmolality Calculated 290 mOsm/kg (285-295); Potassium 4.1 mmol/L (3.5-5.1); Sodium 140 mmol/L (136-145); Total Bilirubin 0.2 mg/dL (0.15-1.2)
--- NOTE | 2023-05-21 06:51 | PM.PN ---
Subjective Subjective: Postoperative day 3 status post exploratory laparotomy, right hemicolectomy for colon mass with intussusception. Patient with a good postoperative course, tolerating clear liquid diet, Juares was removed yesterday he is peeing okay, he is ambulating, has passed significant amount of gas from below. Pain control is now satisfactory. Vitals/I&O/Wt Last Vital Signs Temp 98.1 F 05/21/23 03:55 Pulse 61 05/21/23 05:36 Resp 17 05/21/23 03:55 BP 165/70 05/21/23 03:55 Pulse Ox 96 05/21/23 03:55 O2 Del Method Room Air 05/21/23 03:55 O2 Flow Rate 6 05/18/23 15:09 05/20/23 05/20/23 05/21/23 14:59 22:59 06:59 Intake Total 1460 / 1460 440 / 1900 Output Total 950 / 950 Balance 1460 / 1460 -510 / 950 Physical Exam GI: OTHER: Abdomen is soft, appropriately tender to palpation, nondistended Urinary Catheter Management: Juares: Cath Placed During This Visit: yes, but has since been removed by the nurse Reason for Continuing Indwelling Catheter: Decision to DC Catheter Urinary Catheter Date of Insertion: 05/18/23 Urinary Catheter Time of Insertion: 11:15 Date Urinary Catheter Removed: 05/20/23 Time Urinary Catheter Discontinued: 10:20 Data 05/21/23 05:57 05/21/23 05:57 A&P Assessment and plan (1) Colonic mass: Plan Excellent postoperative progress. We will start on full liquid diet today. The patient tolerated and has a bowel movement we will plan to advance to regular diet. We will continue pain control with multimodal therapy. We will encourage ambulation. Appreciate all other management by hospitalist team Attestations Medical Necessity Statement*: Patient recovering from major abdominal surgery will need to 48 hours or more of hospital stay Coding Level of Care Code Acute Code for [facility] Fwd Diagnoses Colonic mass K63.89
[2023-05-21] MEDS: gabapentin 400 mg Capsule 800 MG PO (10:01)
[2023-05-21] MEDS: lisinopril 10 mg Tablet PO (10:02)
[2023-05-21] MEDS: oxyCODONE 5 mg IR Tab/Cap PO ×3 (11:00→19:32)
--- NOTE | 2023-05-21 11:08 | PC.SOCIAL ---
Pg 2 IMM Explained to pt Pg 2 IMM. No questions voiced. Provided pt a copy. Initialed, dated, & timed a copy & placed in chart.
[2023-05-21] MEDS: acetaminophen 500 mg Tablet PO ×2 (12:38→17:29)
[2023-05-21] MEDS: HYDROmorphone 1 mg/mL INJ 1 mL 0.4 MG IVP ×2 (12:55→17:33)
--- NOTE | 2023-05-21 16:56 | PM.PN ---
Subjective Subjective: He is gradually improving. Has had a bowel movement this afternoon. Pain slightly better still, although not relieved by oxycodone. States he gets pain relief from Dilaudid. Vitals/I&O/Wt Last Vital Signs Temp 97.5 F L 05/21/23 16:00 Pulse 59 L 05/21/23 16:00 Resp 19 H 05/21/23 16:00 BP 166/72 05/21/23 16:00 Pulse Ox 98 05/21/23 16:00 O2 Del Method Room Air 05/21/23 16:00 O2 Flow Rate 6 05/21/23 08:00 05/21/23 05/21/23 05/21/23 06:59 14:59 22:59 Intake Total 960 / 960 Balance 960 / 960 Physical Exam Narrative: Accompanied by family including his . Const: COMMON NORMALS: patient oriented x3 and alert GENERAL APPEARANCE: cooperative ORIENTATION/CONSCIOUSNESS: Yes awake HENMT: COMMON NORMALS: oropharynx normal Neck/C-Spine: COMMON NORMALS: no JVD Resp: COMMON NORMALS: normal respiratory effort and clear to auscultation bilaterally AUSCULTATION: clear to auscultation bilaterally Cardio: COMMON NORMALS: no JVD, regular rhythm, S1 normal heart sound present, S2 normal heart sound present and No murmurs present (Cardio) RHYTHM: regular rhythm HEART SOUNDS: S1 normal heart sound present and S2 normal heart sound present GI: PALPATION: Yes Tenderness to palpation present (GI) OTHER: Midline abdominal dressing Present bowel sounds Extremity: COMMON NORMALS: no joint enlargement and no pedal edema Neuro: COMMON NORMALS: patient oriented x3 and moves all extremities SENSORIUM/ORIENTATION: Yes alert Skin: COMMON NORMALS: no rashes or lesions noted GENERAL SKIN EXAM: no rashes or lesions noted Urinary Catheter Management: Juares: Cath Placed During This Visit: yes, but has since been removed by the nurse Reason for Continuing Indwelling Catheter: Decision to DC Catheter Urinary Catheter Date of Insertion: 05/18/23 Urinary Catheter Time of Insertion: 11:15 Date Urinary Catheter Removed: 05/20/23 Time Urinary Catheter Discontinued: 10:20 Data 05/21/23 05:57 05/21/23 05:57 A&P Assessment and plan (1) Intussusception of colon: (2) Chronic GERD: (3) CAD (coronary artery disease): (4) Dyslipidemia: (5) HTN (hypertension): (6) Current smoker: Plan Colon intussusception Postoperative ileus resolving. Had a bowel movement later today. Trial of management of diet. Discussed with surgery. He is to stay with us tonight, with reassessment in the morning. Consideration possibly of return home tomorrow if doing well. He is still in pain and states that oxycodone is not relieving the his pain, but Dilaudid is. Discussed again regarding risks with opioids, discussed other modalities to help with reducing pain. Continue incentive spirometer. Reviewed blood counts, WBC is normal. Hemoglobin noted lower at 8.3 but this is unchanged and slightly better from yesterday. Reviewed platelet level, noted WNL. Follow-up CBC requested to reassess anemia. Discussed with case management in rounds. Status post laparotomy, lysis of adhesions, right hemicolectomy with primary anastomosis on 05/18. CEA reviewed. Follow-up pathology with surgery in office. Noted hypertensive, blood pressures running 160s-170s systolic. Increase lisinopril from 5 to 10 mg. Change diet to cardiac. Monitor blood pressure. History of CAD. Free of any chest pain. History of cath in 2015 1-LM has luminal irregularities 2-LAD has 50% mid and diffusely diseased 75% distal tapering vessel stenosis .mid lesion is not significant by FFR (0.91), while distal lesion is significant by FFR (0.80).Since distal vessel is diffusely diseased less than 2.0mm tapering vessel it is not amenable to intervention 3-LCx is a moderate size and caliber vessel with 30% Ostial stenosis 4-RCA is a non dominant small caliber vessel which is chronically occluded in its proximal segment fills in retrogradely from L>R Collaterals from distal LAD Troponin series reviewed. Mild elevation. No peak. Chest x-ray reviewed. Smoker, nicotine replacement as needed Attestations Medical Necessity Statement*: Continue admission for assessment and monitoring following postoperative ileus after surgery for intussusception. Optimization of control of hypertension. Diagnoses Intussusception of colon K56.1 Chronic GERD K21.9 CAD (coronary artery disease) I25.10 Dyslipidemia E78.5 HTN (hypertension) I10 Current smoker F17.200
[2023-05-22] VITALS (8 sets, daily range): BP systolic 122–148; BP diastolic 67–75; PULSE 53–72; RESP 16–18; TEMP 36.8–37.1; O2SAT 95–98
[2023-05-22] MEDS: acetaminophen 500 mg Tablet PO ×3 (00:28→11:59)
[2023-05-22] MEDS: pantoprazole 40 mg SDV IVP (03:35)
[2023-05-22] MEDS: ketorolac 30 mg/mL INJ 15 MG IVP ×2 (03:36→10:45)
[2023-05-22 05:09] LABS: Basophils # 0.1 10^3/uL (0.0-0.1); Basophils % 1.1 %; Eosinophils # 1.2 10^3/uL (0.0-0.8); Eosinophils % 16.6 %; Hematocrit 27.3 % (37-53); Lymphocytes # 1.6 10^3/uL (0.8-4.8); Lymphocytes % 21.2 %; Mean Corpuscular HGB Conc 29.3 g/dL (30-55); Mean Corpuscular Hemoglobin 23.1 pg (27-33); Mean Corpuscular Volume 78.9 fl (82-101); Mean Platelet Volume 10.3 fL (7.4-10.4); Monocytes # 0.5 10^3/uL (0.2-0.9); Neutrophils # 3.98 10^3/uL (1.8-7.7); Nucleated Red Blood Cells % 0 %; Platelet Count 425 10^3/cmm (157-399); Red Blood Count 3.46 10^6/uL (3.85-5.65); Red Cell Distribution Width 16.9 % (12.1-15.1); White Blood Count 7.39 10^3/uL (3.29-11.43)
[2023-05-22] MEDS: oxyCODONE 5 mg IR Tab/Cap PO ×2 (06:27→10:59)
[2023-05-22] MEDS: HYDROmorphone 1 mg/mL INJ 1 mL 0.4 MG IVP (07:32)
--- NOTE | 2023-05-22 08:25 | PM.PN ---
Subjective Subjective: Postoperative day 4 status post exploratory laparotomy, right hemicolectomy for colonic mass with ileocolonic intussusception. Patient is having a excellent postoperative progress, has had a bowel movements, is passing gas, no nausea or vomit, tolerating regular diet, ambulating. Vital signs and labs have been unremarkable. Pain level is about 3 or 4/10. Vitals/I&O/Wt Last Vital Signs Temp 98.8 F 05/22/23 07:41 Pulse 72 05/22/23 07:41 Resp 17 05/22/23 07:41 BP 122/67 05/22/23 07:41 Pulse Ox 96 05/22/23 07:41 O2 Del Method Room Air 05/21/23 20:00 O2 Flow Rate 6 05/21/23 08:00 05/21/23 05/22/23 05/22/23 22:59 06:59 14:59 Intake Total 600 / 1560 Balance 600 / 1560 Physical Exam GI: OTHER: Abdomen is soft, appropriately tender on the incisional region., nondistended, surgical incision is well-healed, no evidence of surgical site infection. Urinary Catheter Management: Juares: Cath Placed During This Visit: yes, but has since been removed by the nurse Reason for Continuing Indwelling Catheter: Decision to DC Catheter Urinary Catheter Date of Insertion: 05/18/23 Urinary Catheter Time of Insertion: 11:15 Date Urinary Catheter Removed: 05/20/23 Time Urinary Catheter Discontinued: 10:20 Data 05/22/23 04:41 05/21/23 05:57 A&P Assessment and plan (1) Colonic mass: Plan After complete history, physical examination and review of all available clinical data the following is my assessment. Patient has had an excellent postoperative progress, only challenge was pain control. Patient is stable for discharge from general surgery standpoint as he is tolerating diet, ambulating and having bowel movements. Patient can follow-up in 1 week in my clinic. Patient should be discharged on multimodal pain therapy including meloxicam, Tylenol, gabapentin and as needed opiod. Stool softener should be provided. Patient can follow-up in my clinic next to confirm good postop progress. Attestations Medical Necessity Statement*: Patient cleared for discharge from the general surgery standpoint. Coding Level of Care Code Acute Code for [facility] Diagnoses Colonic mass K63.89
[2023-05-22] MEDS: gabapentin 400 mg Capsule 800 MG PO (08:49)
[2023-05-22] MEDS: lisinopril 10 mg Tablet PO (08:49)
--- NOTE | 2023-05-22 11:04 | P.DS_ITS ---
Discharge Providers Date of Admission: 05/18/23 14:32 Date of Discharge: May 22, 2023 Attending Provider at Admission: Enoc Newell MD Attending Provider at Discharge: Ephraim Whitt Primary Care Provider: Temo Ortiz MD Diagnoses at Discharge Discharge Diagnosis (1) Colonic mass: Status: Acute Reason for Visit Reason for Visit: abd pain Hospital Course Hospital Course 67-year-old gentleman with history of CAD, current smoker, GERD, osteoarthritis with chronic pain, IBS, microcytic anemia, other medical problems was admitted after presenting with abdominal pain, on assessment with CT found to have large enterocolic intussusception likely due to malignancy. No active chest pain on presentation. Cardiac studies not suggestive of acute UT. Was seen by surgery, underwent exploratory laparotomy, lysis of adhesions, right hemicolectomy with primary anastomosis on 05/18. Pain control optimized for abdominal pain after surgery, gradually recovered from postoperative ileus, has had bowel movement, tolerating oral intake. Pain gradually improving with multimodal pain control, but still intermittently requiring opioids. Discussed risks. De-escalate and discontinue as soon as no longer necessary. He is to follow-up with surgery for reassessment and for follow-up of pathology results. Blood pressure is noted elevated during hospitalization on his usual lisinopril 5 mg, maintained on cardiac diet, and lisinopril increased to 10 mg with better control. He is asked to continue monitoring his blood pressure, please follow- up and continue to optimize. Please revisit with him regarding smoking cessation. Physical Exam Const: COMMON NORMALS: patient oriented x3 and alert GENERAL APPEARANCE: cooperative ORIENTATION/CONSCIOUSNESS: Yes awake HENMT: COMMON NORMALS: oropharynx normal Neck/C-Spine: COMMON NORMALS: no JVD Resp: COMMON NORMALS: normal respiratory effort and clear to auscultation bilaterally AUSCULTATION: clear to auscultation bilaterally Cardio: COMMON NORMALS: no JVD, regular rhythm, S1 normal heart sound present, S2 normal heart sound present and No murmurs present (Cardio) RHYTHM: regular rhythm HEART SOUNDS: S1 normal heart sound present and S2 normal heart sound present GI: PALPATION: Yes Tenderness to palpation present (GI) OTHER: Midline incision appearing clean with giuliano intact. Present bowel sounds Extremity: COMMON NORMALS: no joint enlargement and no pedal edema Neuro: COMMON NORMALS: patient oriented x3 and moves all extremities SENSORIUM/ORIENTATION: Yes alert Skin: COMMON NORMALS: no rashes or lesions noted GENERAL SKIN EXAM: no rashes or lesions noted Urinary Catheter Management: Juares: Cath Placed During This Visit: yes, but has since been removed by the nurse Reason for Continuing Indwelling Catheter: Decision to DC Catheter Urinary Catheter Date of Insertion: 05/18/23 Urinary Catheter Time of Insertion: 11:15 Date Urinary Catheter Removed: 05/20/23 Time Urinary Catheter Discontinued: 10:20 Discharge Data Studies Completed and Pending Completed Studies During Hospitalization Category Date Time Status CT abdomen pelvis w con* [id number] Stat Cat Scan 05/18/23 08:37 Completed XR chest 1V portable [id number] Stat Exams 05/18/23 10:50 Completed Pending at discharge Category Date Time Status Complete Blood Count w/Auto AM LABS Lab 05/23/23 04:00 Ordered Complete Blood Count w/Auto AM LABS Lab 05/24/23 04:00 Ordered Pathology: Surgical [PTH] Routine Pth 05/18/23 14:26 Received Radiology Impressions Abdomen/Pelvis CT 05/18/23 08:37 IMPRESSION: Large enterocolic intussusception, likely due to malignancy. Recommend surgical consultation. THIS REPORT CONTAINS FINDINGS THAT MAY BE CRITICAL TO PATIENT CARE. The findings were verbally communicated via telephone conference with MIRIAM HDEZ at 10:06 AM CDT on 05/18/2023. The findings were acknowledged and understood. Chest X-Ray 05/18/23 10:50 IMPRESSION: No acute findings. Laboratory Results WBC 7.39 10^3/uL (3.29-11.43) 05/22/23 04:41 RBC 3.46 10^6/uL (3.85-5.65) L 05/22/23 04:41 Hgb 8.00 g/dL (11.27-16.99) L 05/22/23 04:41 Hct 27.3 % (37-53) L 05/22/23 04:41 MCV 78.9 fl (82-101) L 05/22/23 04:41 MCH 23.1 pg (27-33) L 05/22/23 04:41 MCHC 29.3 g/dL (30-55) L 05/22/23 04:41 RDW 16.9 % (12.1-15.1) H 05/22/23 04:41 Plt Count 425 10^3/cmm (157-399) H 05/22/23 04:41 MPV 10.3 fL (7.4-10.4) 05/22/23 04:41 Neut % (Auto) 54.0 % 05/22/23 04:41 Lymph % (Auto) 21.2 % 05/22/23 04:41 [place] % (Auto) 7.0 % 05/22/23 04:41 Eos % (Auto) 16.6 % 05/22/23 04:41 Baso % (Auto) 1.1 % 05/22/23 04:41 Neut # (Auto) 3.98 10^3/uL (1.8-7.7) 05/22/23 04:41 Lymph # (Auto) 1.6 10^3/uL (0.8-4.8) 05/22/23 04:41 [place] # (Auto) 0.5 10^3/uL (0.2-0.9) 05/22/23 04:41 Eos # (Auto) 1.2 10^3/uL (0.0-0.8) H 05/22/23 04:41 Baso # (Auto) 0.1 10^3/uL (0.0-0.1) 05/22/23 04:41 Nucleated RBC % (auto) 0 % 05/22/23 04:41 Nucleated RBCs # 0.0 /100WBC 05/22/23 04:41 PT 14.10 SECONDS (12.1-14.9) 05/18/23 17:15 INR 1.05 (0.8-1.2) 05/18/23 17:15 APTT 32.4 SECONDS (23.9-36.7) 05/18/23 17:15 Sodium 140 mmol/L (136-145) 05/21/23 05:57 Potassium 4.1 mmol/L (3.5-5.1) 05/21/23 05:57 Chloride 104 mmol/L (98-107) 05/21/23 05:57 Carbon Dioxide 25 mmol/L (22-29) 05/21/23 05:57 Anion Gap 15.1 (5-19) 05/21/23 05:57 BUN 15 mg/dL (8-23) 05/21/23 05:57 Creatinine 0.9 mg/dL (0.7-1.2) 05/21/23 05:57 GFR Calculation 84.4 mL/min (90-130) L 05/21/23 05:57 Glucose 92 mg/dL (65-115) 05/21/23 05:57 Calculated Osmolality 290 mOsm/kg (285-295) 05/21/23 05:57 Lactate 1.5 mmol/L (0.5-2.2) 05/18/23 17:15 Calcium 8.7 mg/dL (8.5-10.5) 05/21/23 05:57 Total Bilirubin 0.2 mg/dL (0.15-1.2) 05/21/23 05:57 AST 14 U/L (0-40) 05/21/23 05:57 ALT < 5 U/L (0-41) 05/21/23 05:57 Alkaline Phosphatase 65 U/L (40-130) 05/21/23 05:57 Troponin T Baseline 15 ng/L (0-15) 05/18/23 17:15 Troponin T 120 Minute 22.51 ng/L (0-15) H 05/18/23 20:15 Delta Troponin T 7.51 ABS# (0-10) 05/18/23 20:15 Troponin T Hi Sens 6Hr 21.04 ng/L (0-15) H 05/18/23 23:15 Troponin T Hi Sens 6Hr Delta 6.04 ng/L (0-12) 05/18/23 23:15 C-Reactive Protein 18.9 mg/L (0.0-4.9) H 05/18/23 17:15 Total Protein 6.0 g/dL (6.6-8.7) L 05/21/23 05:57 Albumin 3.0 g/dL (3.5-5.2) L 05/21/23 05:57 Globulin 3.0 g/dL (1.3-4.6) 05/21/23 05:57 Lipase 24 U/L (13-60) 05/18/23 08:44 Carcinoembryonic Ag 1.8 ng/mL (0.0-4.7) 05/19/23 05:25 Procalcitonin 0.08 ng/mL (0-0.5) 05/18/23 17:15 Urine Color Yellow (Yellow) 05/18/23 08:54 Urine Appearance Clear (CLEAR) 05/18/23 08:54 Urine pH 5 (5-7) 05/18/23 08:54 Ur Specific [place] 1.020 (1.005-1.030) 05/18/23 08:54 Urine Protein Trace (Negative) 05/18/23 08:54 Urine Glucose (UA) Norm (Normal) 05/18/23 08:54 Urine Ketones Negative (Negative) 05/18/23 08:54 Urine Blood Neg (Negative) 05/18/23 08:54 Urine Nitrate Negative (Negative) 05/18/23 08:54 Urine Bilirubin Neg (Negative) 05/18/23 08:54 Urine Urobilinogen Norm mg/dL (Negative) 05/18/23 08:54 Ur Leukocyte Esterase Negative (Negative) 05/18/23 08:54 Urine RBC 0-4 /hpf (0-2) H 05/18/23 08:54 Urine WBC 0-4 /hpf (0-5) H 05/18/23 08:54 Ur Squamous Epith Cells 0-4 /hpf (0-5) H 05/18/23 08:54 Amorphous Sediment Not Reportable 05/18/23 08:54 Urine Bacteria Trace /hpf (NONE) 05/18/23 08:54 Urine Mucus 1+ /hpf 05/18/23 08:54 Blood Type O Positive 05/18/23 17:15 Rho(D) Type Positive 05/18/23 17:15 Antibody Screen Negative 05/18/23 17:15 Vitals Last Vital Signs Temp 98.8 F 05/22/23 07:41 Pulse 72 05/22/23 07:41 Resp 18 05/22/23 10:59 BP 122/67 05/22/23 07:41 Pulse Ox 96 05/22/23 07:41 O2 Del Method Room Air 05/21/23 20:00 O2 Flow Rate 6 05/21/23 08:00 Discharge Plan Discharge Patient Disposition: Home Condition: Stable Prescriptions: New Dilaudid 2 mg tablet 2 mg PO Q6H PRN (Reason: pain) Qty: 14 0RF meloxicam 7.5 mg tablet 7.5 mg PO DAILY Qty: 7 0RF polyethylene glycol 3350 [Miralax] 17 gram powder in packet 17 g PO DAILY Qty: 14 0RF acetaminophen 500 mg capsule 500 mg PO Q6H Qty: 30 0RF docusate sodium 100 mg capsule 100 mg PO BID Qty: 20 0RF gabapentin 300 mg capsule 300 mg PO BID Qty: 30 0RF Continued doxepin 50 mg capsule 50 mg PO QPM atorvastatin 10 mg tablet 10 mg PO BEDTIME gabapentin 800 mg tablet 800 mg PO DAILY pantoprazole 40 mg tablet,delayed release (DR/EC) 40 mg PO DAILY Changed lisinopril 5 mg tablet 10 mg PO DAILY Qty: 90 0RF Discharge Orders: Discharge Order (Routine); Ordered 05/22/23 Ordered By: Ephraim Whitt Referrals: Enoc Newell MD [Physician] - (05/29/2023) Temo Ortiz MD [Primary Care Provider] - 05/27/23 11:00 am Discharge Diet: Cardiac Discharge Activity: Increase activity as tolerated Patient Instructions: Laxative, Stool Softeners (By mouth) (Doculax, Colace, Colace Clear, DSS), Hydromorphone (By mouth), Gabapentin (By mouth), Meloxicam (By mouth), Polyethylene Glycol 3350 (By mouth) (Miralax, Healthylax..., How to Stop Smoking (GEN), Heart Healthy Diet (GEN), Cigarette Smoking and Your Health (GEN), Colectomy Diet (DC), Pain Management After Surgery (GEN), Prevent Cardiovascular Disease (GEN), Opioid Safety Activity Restrictions/Additional Instructions: Follow-up with your primary provider and with surgery for reassessment. Follow- up with surgery regarding pathology results. Exercise caution with pain medications as discussed. Wean off and discontinue as soon as no longer needed. Continue incentive spirometer. Ambulate. As discussed, return to the hospital in case of any worsening or new concerning symptoms. Continue to monitor blood pressure 3 times daily. Continue to work with your primary provider to optimize blood pressure control. Your lisinopril dose is increased to 10 mg. Maintain cardiac diet. Please have your primary doctor follow-up on anemia, reassess blood counts Please stop smoking. Discharge Attestations Time Spent in Discharge Care*: greater than 30 min Quality Metrics Clinical Quality Measures [ No reported AMI, CVA or VTE this stay] Coding Level of Care Code 87073 Total time (in minutes) for Discharge: 40 Diagnoses Colonic mass K63.89
[2023-05-26 10:57] LABS: Mismatch Repari Proteins-IHC See Report
[2023-06-19 06:27] LABS: BRAF V600E (BBPL) See Report
[2023-06-23 12:45] LABS: BRAF PCR Mutation See Report; Miscellaneous Test See Scanned Lab Rpt
== END 2023-05-22 12:54 | disposition home or self-care (01) | DRG 331 ==
LOC: ER 08:43 → OR 10:51 → MEDSURG 18:53
PROVIDERS: Family Medicine; Admitting Provider Surgery; Emergency Provider Family Medicine; PCP Family Medicine Adult Medicine; Visit Provider Internal Medicine
PROC: (CPT 49000; principal; 2023-05-18 12:00)
DX: K63.9 Disease of intestine, unspecified (principal); I25.10 Atherosclerotic heart disease of native coronary artery without angina pectoris; Z95.1 Presence of aortocoronary bypass graft; F17.200 Nicotine dependence, unspecified, uncomplicated; K21.9 Gastro-esophageal reflux disease without esophagitis; M19.90 Unspecified osteoarthritis, unspecified site; G89.29 Other chronic pain; D64.9 Anemia, unspecified; E78.5 Hyperlipidemia, unspecified; I10 Essential (primary) hypertension; K66.0 Peritoneal adhesions (postprocedural) (postinfection); D75.839 Thrombocytosis, unspecified
CPT/HCPCS: 36415; 51702; 71045; 74177; 80053; 81001; 81210; 82378; 83605; 83690; 84145; 84484; 85025; 85610; 85730; 86140; 86850; 86900; 88309; 88341; 88342; 93005; 94664; 96365; 96375; 99285; C9113; J0131; J0330; J1100; J1170; J1885; J2250; J2270; J2405; J2543; J2704; J2710; J2795; J3010; J3490; J7030; P9045; Q9967

== ENCOUNTER → 2023-05-27 10:11 | Outpatient (BNVA) | payer MEDICARE, SELFPAY | PROVIDERS: PCP Family Medicine Adult Medicine; Referring Provider Family Medicine Adult Medicine; Visit Provider Surgery | DX: K63.89 Other specified diseases of intestine (principal); C18.9 Malignant neoplasm of colon, unspecified; Z98.890 Other specified postprocedural states | CPT/HCPCS: 99024 ==

== ENCOUNTER 2023-05-28 07:41 | Oncology outpatient (recurring) (ONCR) | payer MEDICARE, SELFPAY | END 2023-06-24 23:59 | disposition home or self-care (01) | PROVIDERS: PCP Family Medicine Adult Medicine; Visit Provider Internal Medicine Medical Oncology | DX: C18.2 Malignant neoplasm of ascending colon (principal); K21.9 Gastro-esophageal reflux disease without esophagitis; Z79.899 Other long term (current) drug therapy; D64.9 Anemia, unspecified | CPT/HCPCS: 99205 ==

== ENCOUNTER → 2023-06-30 12:36 | Outpatient (BNVA) | payer MEDICARE, SELFPAY | PROVIDERS: PCP Family Medicine Adult Medicine; Visit Provider Surgery | DX: C18.9 Malignant neoplasm of colon, unspecified (principal); Z98.890 Other specified postprocedural states | CPT/HCPCS: 99024 ==

== ENCOUNTER 2023-07-08 13:23 | Outpatient (CLI) | payer MEDICARE, SELFPAY ==
[2023-07-08] MEDS: iohexol 350 mg/mL 500 mL Btl (per mL) PO (13:47)
--- NOTE | 2023-07-08 14:30 | CT_ITS ---
WS: [id number] CT CHEST, ABDOMEN, AND PELVIS TECHNIQUE: Contrast-enhanced CT of the chest, abdomen, and pelvis with coronal and sagittal reformatt ed images. CLINICAL INFORMATION: colon cancer COMPARISON: CT 05/18/2023 DLP: 770.[address] scans at [facility] use at least one of these dose optimization techniques: automated e xposure control; mA and/or kV adjustment per patient size (includes targeted exams where dose is matc hed to clinical indication); or iterative reconstruction. CT CHEST: Aortic calcification. No mediastinal or hilar lymphadenopathy. No axillary lymphadenopathy. Normal ca liber thoracic aorta vertebral calcification. Mild chronic eczematous changes. No acute pulmonary inf iltrates. Calcified [place] LEFT lower lobe. No evidence of metastatic disease in the chest. Hypertroph ic changes thoracic spine. CT ABDOMEN AND PELVIS: Previously described enterocolonic intussusception has been repaired. A few prominent LEFT periaortic lymph nodes have increased in size compared to previous. Prominent LEFT common iliac lymph is new fr om previous measuring 8 mm in short axis dimension. Lymph nodes are indeterminant and recommend inter harmony follow-up or further evaluation with PET/CT. Prominent prostate measuring 4.3 cm. Dense sigmoid constipation. No inguinal lymphadenopathl. 8 mm LE FT adrenal nodule likely adenoma. This is unchanged. Normal renal parenchymal enhancement. No hydrone phrosis. A few tiny LEFT renal cysts. Moderate spondylitic changes lumbar spine. Disc space narrowing worse at L2-L3 and L4-5. Severe central canal stenosis L2-3 and L4-5. Mild hepatomegaly. Diffuse fatty infiltration of the liver. Tiny calculus in the gallbladder. Small a mount of sclerosis RIGHT femoral head. IMPRESSION: 1. No evidence of metastatic disease in the chest. 2. Resection of the previously described enterocolonic intussusception. 3. A few new prominent periaortic and LEFT common iliac lymph nodes. Largest measuring up to 8 mm. T hese are nonspecific and recommend interval follow-up or further evaluation with PET/CT. Metastatic d isease not excluded. 4. Tiny calculus in the gallbladder. 5. Severe central canal stenosis L2-L3 and L4-5. This could be further evaluated with MRI.
[2023-07-08] MEDS: iohexol 350 mg/mL 500 mL Btl (per mL) IV (14:37)
== END 2023-07-08 13:24 | disposition home or self-care (01) ==
LOC: RAD 13:23
PROVIDERS: PCP Family Medicine Adult Medicine; Visit Provider Nurse Practitioner Family
DX: C18.2 Malignant neoplasm of ascending colon (principal)
CPT/HCPCS: 71260; 74177; Q9967

== ENCOUNTER 2023-07-10 13:00 | Oncology outpatient (recurring) (ONCR) | payer MEDICARE, MEDICAID, SELFPAY ==
[2023-06-25 11:14] VITALS: BP 134/72; PULSE 82; RESP 16; TEMP 36.8; O2SAT 96
[2023-06-25 11:33] LABS: Basophils # 0.1 10^3/uL (0.0-0.1); Basophils % 1.3 %; Eosinophils # 0.5 10^3/uL (0.0-0.8); Eosinophils % 6.5 %; Hematocrit 35.9 % (37-53); Lymphocytes % 28.6 %; Mean Corpuscular HGB Conc 30.1 g/dL (30-55); Mean Corpuscular Hemoglobin 24.1 pg (27-33); Mean Platelet Volume 9.6 fL (7.4-10.4); Monocytes # 0.7 10^3/uL (0.2-0.9); Monocytes % 10.2 %; Neutrophils # 3.66 10^3/uL (1.8-7.7); Neutrophils % 53.1 %; Nucleated Red Blood Cells % 0 %; Platelet Count 338 10^3/cmm (157-399); Red Blood Count 4.49 10^6/uL (3.85-5.65); Red Cell Distribution Width 19.9 % (12.1-15.1); White Blood Count 6.89 10^3/uL (3.29-11.43)
[2023-06-25 12:02] LABS: Carcinoembryonic Antigen 2.4 ng/mL (0.0-4.7)
[2023-06-25 12:13] LABS: Alanine Aminotransferase 10 U/L (0-41); Albumin Level 4.3 g/dL (3.5-5.2); Alkaline Phosphatase 107 U/L (40-130); Anion Gap 13.3 (5-19); Aspartate Amino Transferase 17 U/L (0-40); Blood Urea Nitrogen 17 mg/dL (8-23); Carbon Dioxide 26 mmol/L (22-29); Chloride 102 mmol/L (98-107); Globulin 2.7 g/dL (1.3-4.6); Glomerular Filtration Rate 96.7 mL/min (90-130); Glucose 84 mg/dL (65-115); Osmolality Calculated 285 mOsm/kg (285-295); Potassium 4.3 mmol/L (3.5-5.1); Sodium 137 mmol/L (136-145); Total Bilirubin 0.2 mg/dL (0.15-1.2)
[2023-06-25 13:30] LABS: Ferritin 22 ng/mL (30-400); Iron 46 ug/dL (59-158); Percent Saturation 12.6 % (20-50); Total Iron Binding Capacity 363 mcg/dl; Unsaturated Iron Binding 317 ug/dL (112-347)
[2023-06-25 13:45] LABS: Vitamin B12 251 pg/mL (232-1245)
[2023-06-25 14:45] LABS: Folate Level 5.5 ng/mL (4.5-32.2)
[2023-07-10 13:34] LABS: Basophils # 0.1 10^3/uL (0.0-0.1); Eosinophils # 0.4 10^3/uL (0.0-0.8); Eosinophils % 4.9 %; Hematocrit 37.4 % (37-53); Lymphocytes # 1.8 10^3/uL (0.8-4.8); Lymphocytes % 22.5 %; Mean Corpuscular Hemoglobin 25.1 pg (27-33); Mean Platelet Volume 10.2 fL (7.4-10.4); Monocytes # 0.6 10^3/uL (0.2-0.9); Monocytes % 7.7 %; Neutrophils # 5.08 10^3/uL (1.8-7.7); Neutrophils % 63.6 %; Nucleated Red Blood Cells % 0 %; Platelet Count 372 10^3/cmm (157-399); Red Blood Count 4.62 10^6/uL (3.85-5.65); Red Cell Distribution Width 20.5 % (12.1-15.1); White Blood Count 7.97 10^3/uL (3.29-11.43)
[2023-07-10 13:55] LABS: Alanine Aminotransferase < 5 U/L (0-41); Albumin Level 4.1 g/dL (3.5-5.2); Alkaline Phosphatase 112 U/L (40-130); Anion Gap 10.8 (5-19); Aspartate Amino Transferase 16 U/L (0-40); Blood Urea Nitrogen 12 mg/dL (8-23); Carbon Dioxide 30 mmol/L (22-29); Chloride 103 mmol/L (98-107); Globulin 2.9 g/dL (1.3-4.6); Glucose 90 mg/dL (65-115); Osmolality Calculated 287 mOsm/kg (285-295); Potassium 4.8 mmol/L (3.5-5.1); Sodium 139 mmol/L (136-145); Total Bilirubin 0.2 mg/dL (0.15-1.2)
== END 2023-07-24 23:59 | disposition home or self-care (01) ==
PROVIDERS: Nurse Practitioner Family; PCP Family Medicine Adult Medicine; Visit Provider Internal Medicine
DX: C18.2 Malignant neoplasm of ascending colon (principal)
CPT/HCPCS: 36415; 80053; 82378; 82607; 82728; 82746; 83540; 83550; 85025; 99215

== ENCOUNTER 2023-08-12 12:30 | Oncology outpatient (recurring) (ONCR) | payer MEDICARE, SELFPAY ==
[2023-07-25 09:32] LABS: Basophils # 0.1 10^3/uL (0.0-0.1); Basophils % 1.4 %; Eosinophils # 0.5 10^3/uL (0.0-0.8); Eosinophils % 7.2 %; Hematocrit 39.4 % (37-53); Lymphocytes # 1.6 10^3/uL (0.8-4.8); Lymphocytes % 26.2 %; Mean Corpuscular Hemoglobin 25.3 pg (27-33); Mean Corpuscular Volume 81.6 fl (82-101); Mean Platelet Volume 9.7 fL (7.4-10.4); Monocytes # 0.6 10^3/uL (0.2-0.9); Monocytes % 9.3 %; Neutrophils # 3.45 10^3/uL (1.8-7.7); Neutrophils % 55.7 %; Nucleated Red Blood Cells % 0 %; Platelet Count 424 10^3/cmm (157-399); Red Blood Count 4.83 10^6/uL (3.85-5.65); Red Cell Distribution Width 20.6 % (12.1-15.1); White Blood Count 6.21 10^3/uL (3.29-11.43)
[2023-07-25 10:03] LABS: Carcinoembryonic Antigen 3.2 ng/mL (0.0-4.7)
[2023-07-25 10:14] LABS: Alanine Aminotransferase 9 U/L (0-41); Albumin Level 4.3 g/dL (3.5-5.2); Alkaline Phosphatase 112 U/L (40-130); Anion Gap 13.8 (5-19); Aspartate Amino Transferase 17 U/L (0-40); Blood Urea Nitrogen 19 mg/dL (8-23); Calcium 9.4 mg/dL (8.5-10.5); Carbon Dioxide 25 mmol/L (22-29); Chloride 102 mmol/L (98-107); Globulin 3.1 g/dL (1.3-4.6); Glomerular Filtration Rate 96.7 mL/min (90-130); Glucose 108 mg/dL (65-115); Osmolality Calculated 285 mOsm/kg (285-295); Potassium 4.8 mmol/L (3.5-5.1); Sodium 136 mmol/L (136-145); Total Bilirubin 0.2 mg/dL (0.15-1.2); Total Protein 7.4 g/dL (6.6-8.7)
[2023-08-12 12:46] VITALS: BP 120/70; PULSE 70; RESP 16; TEMP 36.7; O2SAT 95
[2023-08-12 13:09] LABS: Basophils # 0.1 10^3/uL (0.0-0.1); Basophils % 1.2 %; Eosinophils # 0.5 10^3/uL (0.0-0.8); Eosinophils % 7.9 %; Hematocrit 35.9 % (37-53); Lymphocytes # 2.1 10^3/uL (0.8-4.8); Lymphocytes % 35.5 %; Mean Corpuscular Hemoglobin 26.3 pg (27-33); Mean Platelet Volume 9.8 fL (7.4-10.4); Monocytes # 0.4 10^3/uL (0.2-0.9); Monocytes % 6.6 %; Neutrophils # 2.87 10^3/uL (1.8-7.7); Neutrophils % 48.5 %; Nucleated Red Blood Cells % 0 %; Platelet Count 334 10^3/cmm (157-399); Red Blood Count 4.38 10^6/uL (3.85-5.65); Red Cell Distribution Width 19.6 % (12.1-15.1); White Blood Count 5.92 10^3/uL (3.29-11.43)
[2023-08-12 13:28] LABS: Alanine Aminotransferase 8 U/L (0-41); Albumin Level 3.9 g/dL (3.5-5.2); Alkaline Phosphatase 95 U/L (40-130); Aspartate Amino Transferase 10 U/L (0-40); Blood Urea Nitrogen 17 mg/dL (8-23); Calcium 9.4 mg/dL (8.5-10.5); Carbon Dioxide 26 mmol/L (22-29); Chloride 104 mmol/L (98-107); Globulin 2.8 g/dL (1.3-4.6); Glomerular Filtration Rate 96.7 mL/min (90-130); Glucose 102 mg/dL (65-115); Osmolality Calculated 288 mOsm/kg (285-295); Sodium 138 mmol/L (136-145); Total Bilirubin 0.2 mg/dL (0.15-1.2); Total Protein 6.7 g/dL (6.6-8.7)
[2023-08-12] MEDS: flu vacc pf 2023-24 (6 mos+) 60 MCG IM (14:50)
== END 2023-08-24 23:59 | disposition home or self-care (01) ==
PROVIDERS: Nurse Practitioner Family; PCP Family Medicine Adult Medicine; Visit Provider Internal Medicine
DX: C18.2 Malignant neoplasm of ascending colon (principal); Z53.9 Procedure and treatment not carried out, unspecified reason; F17.200 Nicotine dependence, unspecified, uncomplicated; Z79.899 Other long term (current) drug therapy
CPT/HCPCS: 36415; 80053; 82378; 85025; 90471; 90686; 99214; 99215

== ENCOUNTER 2023-08-22 09:45 | Day surgery (SDC) | payer MEDICARE, SELFPAY ==
[2023-08-22 10:02] VITALS: BP 133/70; PULSE 74; RESP 18; TEMP 36.6; O2SAT 94
[2023-08-22 10:03] VITALS: BMI 23.6
[2023-08-22] MEDS: sodium chloride 0.9% 1,000 ML 30 ML IV (10:07)
--- NOTE | 2023-08-22 10:19 | ANES.PREANE2 ---
Pre-Anesthetic Assessment Height/Weight: Height 1.75 m Weight 72.575 kg Temp Pulse Resp BP Pulse Ox O2 Del Method 97.9 F 74 18 133/70 94 Room Air 08/22/23 10:02 08/22/23 10:02 08/22/23 10:02 08/22/23 10:02 08/22/23 10:02 08/22/23 10:02 Operation Date: 08/22/23 10:50 Proposed Procedures p 78892 colon G0121 screen colon A risk C18.9(Not Applicable) - Enoc Newell MD Familial anesthetic complications: None Was Beta Brooks taken within 24 hours: N/A Was Clonidine taken within 24 hours: N/A Last intake: Intake Last Liquid Date 08/21/23 Last Liquid Time 19:00 Last Solid Date 08/21/23 Last Solid Time 12:00 Social No alcohol and No tobacco Exam alert, oriented x 3, clear to auscultation bilaterally and regular rate & rhythm Airway Mallampati: Class II Dentition: full CV/HEM Coronary Artery Disease and Hypertension GI malignant neoplasm R colon Anesthetic Plan ASA status: 3 Anesthesia: MAC Risk of > 500 ml blood loss (7ml/kg in children): No Medications/Allergies Home Medications Medication Instructions Recorded Confirmed Last Taken Type atorvastatin 10 mg tablet 10 mg PO BEDTIME cholesterol #90 06/04/23 08/22/23 08/21/23 Rx tabs doxepin 50 mg capsule 50 mg PO QPM insomnia #30 caps 06/04/23 08/22/23 08/20/23 Rx gabapentin 300 mg capsule 300 mg PO BID chronic pain #60 caps 06/04/23 08/22/23 08/21/23 Rx amlodipine 5 mg tablet 5 mg PO DAILY high blood pressure 06/12/23 08/22/23 08/21/23 Rx #30 tabs capecitabine 150 mg tablet (Xeloda) 150 mg PO BID #28 tabs 06/25/23 08/21/23 08/18/23 Rx capecitabine 500 mg tablet 1,500 mg (3 x 500 mg) PO BID #84 06/25/23 08/21/23 08/18/23 Rx tabs citalopram 40 mg tablet 40 mg PO DAILY depression #90 tabs 07/02/23 08/22/23 08/21/23 Rx lisinopril 20 mg tablet 20 mg PO DAILY blood pressure #90 07/06/23 08/22/23 08/21/23 Rx tabs lorazepam 1 mg tablet 0.5 - 1 mg (0.5 - 1 x 1 mg) PO Q6H 07/25/23 08/21/23 Unknown Rx PRN severe nausea/vomiting #30 tabs prochlorperazine maleate 10 mg 10 mg PO Q6H PRN mild nausea and 07/25/23 08/21/23 Unknown Rx tablet (Compazine) vomiting #30 tabs hydrocodone 7.5 mg-acetaminophen 1 tab PO .q6 hr PRN pain 30 days 07/30/23 08/22/23 08/21/23 Rx 325 mg tablet #120 tabs Allergies Allergy/AdvReac Type Severity Reaction Status Date / Time No Known Allergies Allergy Verified 08/21/23 09:30 Current Medications Generic Name Dose Route Start Last Admin Trade Name Freq PRN Reason Stop Dose Admin Sodium Chloride 1,000 mls @ 30 mls/hr 08/22/23 10:00 08/22/23 10:07 Sodium Chloride 0.9% IV 30 mls/hr .Q24H JANEY Administration PFSH Anesthesia Medical History 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 Back pain of lumbar region with sciatica sciatica on right CAD (coronary artery disease) Chronic GERD Colon adenocarcinoma Depression Dyslipidemia Erectile dysfunction Hepatomegaly HTN (hypertension) Hx of carpal tunnel syndrome Hx of herpes zoster Hx of irritable bowel syndrome Hx of migraine headaches Insomnia Intractable neuropathic pain of hand Intussusception of colon Microcytic hypochromic anemia Pain involving joints of fingers of both hands Surgical History Hx of appendectomy Hx of arthroscopy of right knee Hx of CABG Hx of carpal tunnel repair Hx of discectomy Family History Other Diabetes Social History Smoking and tobacco/nicotine status: current every day tobacco/nicotine user cigarettes Packs smoked per day: 0.5 Years cigarettes smoked: 50 Alcohol intake: never Substance/Drug Use: never Data Anesthesia Cardiac Studies: No Data to Display
[2023-08-22 10:28] LABS: Basophils # 0.1 10^3/uL (0.0-0.1); Basophils % 0.7 %; Eosinophils # 0.4 10^3/uL (0.0-0.8); Eosinophils % 6.1 %; Lymphocytes # 1.6 10^3/uL (0.8-4.8); Lymphocytes % 22.2 %; Mean Corpuscular HGB Conc 31.4 g/dL (30-55); Mean Corpuscular Hemoglobin 26.3 pg (27-33); Mean Corpuscular Volume 83.7 fl (82-101); Mean Platelet Volume 9.7 fL (7.4-10.4); Monocytes # 0.6 10^3/uL (0.2-0.9); Neutrophils # 4.33 10^3/uL (1.8-7.7); Neutrophils % 61.7 %; Nucleated Red Blood Cells % 0 %; Platelet Count 278 10^3/cmm (157-399); Red Blood Count 5.14 10^6/uL (3.85-5.65); Red Cell Distribution Width 20.4 % (12.1-15.1); White Blood Count 7.02 10^3/uL (3.29-11.43)
--- NOTE | 2023-08-22 10:44 | W.PM.OPSFHP ---
Same Day Surgery H&P Indication for Procedure/HPI DATE OF PROCEDURE: August 22, 2023 CHIEF COMPLAINT/INDICATIONFOR SURGICAL PROCEDURE: history of colon cancer PREOP DIAGNOSIS: colon cancer PLANNED PROCEDURE: Operation Date: 08/22/23 10:50 [place] Procedures p 86738 colon G0121 screen colon A risk C18.9(Not Applicable) - Enoc Newell MD Medications/Allergies* Allergies/Adverse Reactions Allergy/AdvReac Type Severity Reaction Status Date / Time No Known Allergies Allergy Verified 08/21/23 09:30 Current Medications: Generic Name Dose Route Start Last Admin Trade Name Freq PRN Reason Stop Dose Admin Sodium Chloride 1,000 mls @ 30 mls/hr 08/22/23 10:00 08/22/23 10:07 Sodium Chloride 0.9% IV 30 mls/hr .Q24H JANEY Administration Pertinent History/Comorbid Conditions* Medical History (Updated 06/04/23 @ 12:23 by Temo Ortiz MD) Back pain of lumbar region with sciatica sciatica on right Colon adenocarcinoma Intussusception of colon Chronic GERD Depression Pain involving joints of fingers of both hands 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 Microcytic hypochromic anemia Hepatomegaly Insomnia Intractable neuropathic pain of hand Hx of carpal tunnel syndrome Hx of migraine headaches Hx of herpes zoster Hx of irritable bowel syndrome Erectile dysfunction CAD (coronary artery disease) Dyslipidemia HTN (hypertension) Surgical History (Updated 09/14/22 @ 09:00 by Temo Ortiz MD) Hx of arthroscopy of right knee Hx of carpal tunnel repair Hx of appendectomy Hx of discectomy Hx of CABG Family History (Updated 05/18/23 @ 11:47 by Zaid Sebastian MD) Diabetes Social History Smoking and tobacco/nicotine status: current every day tobacco/nicotine user cigarettes Packs smoked per day: 0.5 Years cigarettes smoked: 50 Alcohol intake: never Substance/Drug Use: never Pertinent Exam Findings alert, oriented x 3 and clear to auscultation bilaterally Recommendations Surgery/Procedure today Coding Level of Care Code Acute Code for Chg Fwd
[2023-08-22 11:08] LABS: Carcinoembryonic Antigen 4.2 ng/mL (0.0-4.7)
[2023-08-22 11:19] LABS: Alanine Aminotransferase 7 U/L (0-41); Albumin Level 4.4 g/dL (3.5-5.2); Alkaline Phosphatase 116 U/L (40-130); Blood Urea Nitrogen 16 mg/dL (8-23); Calcium 9.7 mg/dL (8.5-10.5); Carbon Dioxide 26 mmol/L (22-29); Chloride 101 mmol/L (98-107); Globulin 3.5 g/dL (1.3-4.6); Glomerular Filtration Rate 96.7 mL/min (90-130); Glucose 93 mg/dL (65-115); Osmolality Calculated 285 mOsm/kg (285-295); Sodium 137 mmol/L (136-145); Total Bilirubin 0.2 mg/dL (0.15-1.2); Total Protein 7.9 g/dL (6.6-8.7)
[2023-08-22 11:29] LABS: Anion Gap 14.6 (5-19); Aspartate Amino Transferase 16 U/L (0-40); Potassium 4.6 mmol/L (3.5-5.1)
--- NOTE | 2023-08-22 13:05 | ANE.PACU2 ---
Inpatient post-anesthesia follow up: Airway intact: Yes Vital signs: Temperature 97.4 F Pulse Rate 58 Respiratory Rate 18 Blood Pressure 136/72 Pulse Oximetry 99 Oxygen Delivery Me thod Room Air Oxygen Flow Rate Fraction of Inspir ed Oxygen Hydration adequate: Yes Nausea and vomiting: No Pain level: 1 Mental status: Baseline
[2023-08-22 13:09] VITALS: BP 139/75; PULSE 54; RESP 17; TEMP 36.1; O2SAT 99
[2023-08-22 13:21] VITALS: BP 136/72; PULSE 58; RESP 18; TEMP 36.3; O2SAT 99
[2023-08-22 13:31] VITALS: BP 155/62; PULSE 55; RESP 17; O2SAT 97
== END 2023-08-22 13:40 | disposition home or self-care (01) ==
PROVIDERS: Nurse Practitioner Family; PCP Family Medicine Adult Medicine; Visit Provider Surgery
PROC: 0DJD8ZZ Inspection of Lower Intestinal Tract, Via Natural or Artificial Opening Endoscopic (ICD-10-PCS; CPT 45378; principal; 2023-08-22 10:50)
DX: Z12.11 Encounter for screening for malignant neoplasm of colon (principal); D12.5 Benign neoplasm of sigmoid colon; D12.8 Benign neoplasm of rectum; Z85.038 Personal history of other malignant neoplasm of large intestine; K21.9 Gastro-esophageal reflux disease without esophagitis; I25.10 Atherosclerotic heart disease of native coronary artery without angina pectoris; E78.5 Hyperlipidemia, unspecified; I10 Essential (primary) hypertension; F17.210 Nicotine dependence, cigarettes, uncomplicated
CPT/HCPCS: 36415; 45384; 45385; 80053; 82378; 85025; 88305; J2704; J7030

== ENCOUNTER → 2023-09-09 11:24 | Outpatient (BNVA) | payer OTHER, SELFPAY | PROVIDERS: PCP Family Medicine Adult Medicine; Visit Provider Surgery | DX: Z09 Encounter for follow-up examination after completed treatment for conditions other than malignant neoplasm (principal) | CPT/HCPCS: 99215 ==

== ENCOUNTER 2023-09-22 09:15 | Oncology outpatient (recurring) (ONCR) | payer MEDICARE, SELFPAY ==
[2023-09-22 09:14] VITALS: BP 132/74; PULSE 66; RESP 18; TEMP 36.3; O2SAT 98
[2023-09-22 09:25] LABS: Basophils # 0.1 10^3/uL (0.0-0.1); Basophils % 1.4 %; Eosinophils # 0.3 10^3/uL (0.0-0.8); Eosinophils % 6.4 %; Lymphocytes # 1.7 10^3/uL (0.8-4.8); Lymphocytes % 33.9 %; Mean Corpuscular HGB Conc 31.8 g/dL (30-55); Mean Corpuscular Hemoglobin 28.3 pg (27-33); Mean Corpuscular Volume 88.8 fl (82-101); Mean Platelet Volume 9.4 fL (7.4-10.4); Monocytes # 0.5 10^3/uL (0.2-0.9); Monocytes % 10.8 %; Neutrophils # 2.38 10^3/uL (1.8-7.7); Neutrophils % 47.3 %; Nucleated Red Blood Cells % 0 %; Platelet Count 359 10^3/cmm (157-399); Red Blood Count 4.28 10^6/uL (3.85-5.65); Red Cell Distribution Width 21.2 % (12.1-15.1); White Blood Count 5.02 10^3/uL (3.29-11.43)
[2023-09-22 09:59] LABS: Carcinoembryonic Antigen 3.5 ng/mL (0.0-4.7)
[2023-09-22 10:10] LABS: Alanine Aminotransferase 7 U/L (0-41); Alkaline Phosphatase 104 U/L (40-130); Anion Gap 13.1 (5-19); Aspartate Amino Transferase 13 U/L (0-40); Blood Urea Nitrogen 21 mg/dL (8-23); Calcium 9.3 mg/dL (8.5-10.5); Carbon Dioxide 27 mmol/L (22-29); Chloride 104 mmol/L (98-107); Globulin 2.7 g/dL (1.3-4.6); Glomerular Filtration Rate 96.7 mL/min (90-130); Glucose 80 mg/dL (65-115); Osmolality Calculated 292 mOsm/kg (285-295); Potassium 4.1 mmol/L (3.5-5.1); Sodium 140 mmol/L (136-145); Total Bilirubin 0.2 mg/dL (0.15-1.2); Total Protein 6.7 g/dL (6.6-8.7)
[2023-09-22 12:27] LABS: Ferritin 73 ng/mL (30-400); Iron 73 ug/dL (59-158); Total Iron Binding Capacity 364 mcg/dl; Unsaturated Iron Binding 291 ug/dL (112-347)
== END 2023-09-24 23:59 | disposition home or self-care (01) ==
PROVIDERS: PCP Family Medicine Adult Medicine; Visit Provider Internal Medicine
DX: Z53.9 Procedure and treatment not carried out, unspecified reason (principal); C18.2 Malignant neoplasm of ascending colon
CPT/HCPCS: 36415; 80053; 82378; 82728; 83540; 83550; 85025; 99214

== ENCOUNTER 2023-10-23 12:00 | Oncology outpatient (recurring) (ONCR) | payer MEDICARE, MEDICAID, SELFPAY ==
[2023-09-29 08:44] LABS: Basophils # 0.1 10^3/uL (0.0-0.1); Basophils % 0.9 %; Eosinophils # 0.6 10^3/uL (0.0-0.8); Eosinophils % 10.3 %; Hematocrit 35.5 % (37-53); Lymphocytes # 2.1 10^3/uL (0.8-4.8); Lymphocytes % 40.2 %; Mean Corpuscular HGB Conc 31.8 g/dL (30-55); Mean Corpuscular Hemoglobin 28.6 pg (27-33); Mean Corpuscular Volume 89.9 fl (82-101); Mean Platelet Volume 9.4 fL (7.4-10.4); Monocytes # 0.5 10^3/uL (0.2-0.9); Monocytes % 9.6 %; Neutrophils # 2.07 10^3/uL (1.8-7.7); Neutrophils % 38.8 %; Nucleated Red Blood Cells % 0 %; Platelet Count 275 10^3/cmm (157-399); Red Blood Count 3.95 10^6/uL (3.85-5.65); White Blood Count 5.33 10^3/uL (3.29-11.43)
[2023-09-29 09:07] LABS: Carcinoembryonic Antigen 3.3 ng/mL (0.0-4.7)
[2023-09-29 09:19] LABS: Alanine Aminotransferase 7 U/L (0-41); Albumin Level 3.9 g/dL (3.5-5.2); Alkaline Phosphatase 106 U/L (40-130); Anion Gap 12.8 (5-19); Aspartate Amino Transferase 12 U/L (0-40); Blood Urea Nitrogen 17 mg/dL (8-23); Calcium 9.1 mg/dL (8.5-10.5); Carbon Dioxide 28 mmol/L (22-29); Chloride 103 mmol/L (98-107); Globulin 2.6 g/dL (1.3-4.6); Glomerular Filtration Rate 96.7 mL/min (90-130); Glucose 74 mg/dL (65-115); Osmolality Calculated 290 mOsm/kg (285-295); Potassium 3.8 mmol/L (3.5-5.1); Sodium 140 mmol/L (136-145); Total Bilirubin 0.2 mg/dL (0.15-1.2); Total Protein 6.5 g/dL (6.6-8.7)
[2023-10-23 12:46] LABS: Basophils # 0.1 10^3/uL (0.0-0.1); Basophils % 0.9 %; Eosinophils # 0.4 10^3/uL (0.0-0.8); Hematocrit 35.5 % (37-53); Lymphocytes # 1.6 10^3/uL (0.8-4.8); Lymphocytes % 23.8 %; Mean Corpuscular HGB Conc 33.2 g/dL (30-55); Mean Corpuscular Hemoglobin 30.7 pg (27-33); Mean Corpuscular Volume 92.4 fl (82-101); Mean Platelet Volume 9.3 fL (7.4-10.4); Monocytes # 0.8 10^3/uL (0.2-0.9); Monocytes % 11.4 %; Neutrophils % 57.1 %; Nucleated Red Blood Cells % 0 %; Platelet Count 328 10^3/cmm (157-399); Red Blood Count 3.84 10^6/uL (3.85-5.65); Red Cell Distribution Width 23.9 % (12.1-15.1); White Blood Count 6.65 10^3/uL (3.29-11.43)
[2023-10-23 13:14] LABS: Alanine Aminotransferase 12 U/L (0-41); Albumin Level 4.2 g/dL (3.5-5.2); Alkaline Phosphatase 99 U/L (40-130); Aspartate Amino Transferase 17 U/L (0-40); Blood Urea Nitrogen 16 mg/dL (8-23); Calcium 9.1 mg/dL (8.5-10.5); Carbon Dioxide 25 mmol/L (22-29); Chloride 105 mmol/L (98-107); Creatinine Clr Calc Pharmacy 90.6947; Globulin 2.6 g/dL (1.3-4.6); Glomerular Filtration Rate 112.8 mL/min (90-130); Glucose 133 mg/dL (65-115); Osmolality Calculated 287 mOsm/kg (285-295); Sodium 137 mmol/L (136-145); Total Bilirubin 0.3 mg/dL (0.15-1.2); Total Protein 6.8 g/dL (6.6-8.7)
[2023-10-23 13:29] LABS: Anion Gap 11.3 (5-19); Potassium 4.3 mmol/L (3.5-5.1)
[2023-10-23 14:10] LABS: Carcinoembryonic Antigen 4.4 ng/mL (0.0-4.7)
== END 2023-10-23 23:59 | disposition home or self-care (01) ==
PROVIDERS: Internal Medicine Medical Oncology; PCP Family Medicine Adult Medicine; Visit Provider Internal Medicine
DX: C18.2 Malignant neoplasm of ascending colon (principal); Z53.9 Procedure and treatment not carried out, unspecified reason
CPT/HCPCS: 36415; 80053; 82378; 85025

== ENCOUNTER 2023-10-30 14:21 | Outpatient (CLI) | payer MEDICARE, MEDICAID, SELFPAY ==
--- NOTE | 2023-10-30 14:45 | MR_ITS ---
WS: [id number] MRI LUMBAR SPINE NONCONTRAST HISTORY: lumbar spinal stenosis COMPARISON: None available. TECHNIQUE: Sagittal and axial multisequence imaging is submitted. Cervical anterior fusion from C5-C7. Cervical stenosis at the C4-5. Additional stenosis at T8-9. Mild straightening of the normal lumbar lordosis. Disc spaces are all mildly narrowed and desiccated. Small amount of marrow edema along the adjacent e ndplates of L4 and L5. Conus terminates normally at L1-2 disc level. L1-L2: Marked annular disc bulging with bilateral foraminal disc protrusions, ligamentum flavum and f acet arthritis. Severe central and bilateral subarticular recess stenosis. Moderate to severe LEFT an d moderate RIGHT foraminal stenosis. Disc contacts the traversing L2 nerve roots in the LEFT exiting L1 nerve root. L2-L3: Severe annular disc bulging with severe ligamentum flavum and facet arthritis. Severe central canal stenosis and subarticular recess stenosis with moderate foraminal stenosis. L3-L4: Severe annular disc bulging with ligamentum flavum disease and facet arthritis. Severe central , bilateral subarticular recess and foraminal stenosis. L4-L5: Diffuse marked annular disc bulging with ligamentum flavum and facet arthritis. Severe central , bilateral subarticular recess and foraminal stenosis. Greater stenosis RIGHT foramen. L5-S1: Diffuse annular disc bulging with ligamentum flavum and facet arthritis. Mild central, bilater al subarticular recess and moderate foraminal stenosis. IMPRESSION: 1. Severe multilevel stenosis throughout the lumbar spine. Stenosis at all levels is due to disc dis ease with protrusions, severe ligamentum flavum and facet arthritis. 2. L1-2: Severe central, bilateral subarticular recess and moderate to severe LEFT and moderate RIGH T foraminal stenosis. 3. L2-3: Severe central, subarticular recess and moderate foraminal stenosis. 4. L3-4 and L4-5: Severe central, bilateral subarticular recess and foraminal stenosis. 5. L5-S1: Mild central, bilateral subarticular recess and moderate foraminal stenosis. 6. Prior anterior cervical fusion at C4-C7. 7. Cervical stenosis at C4-5.
== END 2023-10-30 14:22 | disposition home or self-care (01) ==
LOC: RAD 14:22
PROVIDERS: PCP Family Medicine Adult Medicine; Visit Provider Internal Medicine Medical Oncology
DX: M48.061 Spinal stenosis, lumbar region without neurogenic claudication (principal); Z98.1 Arthrodesis status
CPT/HCPCS: 72148

== ENCOUNTER 2023-11-17 11:00 | Oncology outpatient (recurring) (ONCR) | payer MEDICARE, MEDICAID, SELFPAY ==
[2023-11-17 11:35] LABS: Basophils % 0.5 %; Eosinophils # 0.4 10^3/uL (0.0-0.8); Eosinophils % 5.9 %; Hematocrit 35.6 % (37-53); Lymphocytes # 1.6 10^3/uL (0.8-4.8); Mean Corpuscular HGB Conc 33.4 g/dL (30-55); Mean Corpuscular Hemoglobin 32.8 pg (27-33); Mean Corpuscular Volume 98.1 fl (82-101); Mean Platelet Volume 9.6 fL (7.4-10.4); Monocytes # 0.7 10^3/uL (0.2-0.9); Monocytes % 10.9 %; Neutrophils # 3.64 10^3/uL (1.8-7.7); Neutrophils % 57.5 %; Nucleated Red Blood Cells % 0 %; Platelet Count 309 10^3/cmm (157-399); Red Blood Count 3.63 10^6/uL (3.85-5.65); Red Cell Distribution Width 23.9 % (12.1-15.1); White Blood Count 6.32 10^3/uL (3.29-11.43)
[2023-11-17 11:59] LABS: Alanine Aminotransferase 7 U/L (0-41); Albumin Level 4.3 g/dL (3.5-5.2); Alkaline Phosphatase 103 U/L (40-130); Anion Gap 14.3 (5-19); Aspartate Amino Transferase 17 U/L (0-40); Blood Urea Nitrogen 18 mg/dL (8-23); Calcium 9.1 mg/dL (8.5-10.5); Carbon Dioxide 26 mmol/L (22-29); Chloride 104 mmol/L (98-107); Creatinine Clr Calc Pharmacy 81.5937; Globulin 2.6 g/dL (1.3-4.6); Glomerular Filtration Rate 84.2 mL/min (90-130); Glucose 91 mg/dL (65-115); Osmolality Calculated 291 mOsm/kg (285-295); Potassium 4.3 mmol/L (3.5-5.1); Sodium 140 mmol/L (136-145); Total Bilirubin 0.5 mg/dL (0.15-1.2); Total Protein 6.9 g/dL (6.6-8.7)
== END 2023-11-23 23:59 | disposition home or self-care (01) ==
PROVIDERS: PCP Family Medicine Adult Medicine; Visit Provider Internal Medicine Medical Oncology
DX: Z53.9 Procedure and treatment not carried out, unspecified reason; F17.210 Nicotine dependence, cigarettes, uncomplicated; C18.0 Malignant neoplasm of cecum; Z90.49 Acquired absence of other specified parts of digestive tract; M48.061 Spinal stenosis, lumbar region without neurogenic claudication; Z79.891 Long term (current) use of opiate analgesic; Z79.631 Long term (current) use of antimetabolite agent; R23.4 Changes in skin texture
CPT/HCPCS: 36415; 80053; 85025; 99214

== ENCOUNTER → 2023-12-02 10:19 | Outpatient (BNVA) | payer MEDICARE, SELFPAY | PROVIDERS: PCP Family Medicine Adult Medicine; Visit Provider Orthopaedic Surgery | DX: M54.40 Lumbago with sciatica, unspecified side (principal); M48.062 Spinal stenosis, lumbar region with neurogenic claudication | CPT/HCPCS: 72110; 99204 ==

== ENCOUNTER → 2024-03-10 09:18 | Outpatient (BNVA) | payer MEDICARE, MEDICAID, SELFPAY | PROVIDERS: PCP Family Medicine Adult Medicine; Visit Provider Surgery | DX: Z09 Encounter for follow-up examination after completed treatment for conditions other than malignant neoplasm (principal); C18.0 Malignant neoplasm of cecum | CPT/HCPCS: 99213 ==

== ENCOUNTER → 2024-08-10 09:56 | Outpatient (BNVA) | payer MEDICARE, MEDICAID, SELFPAY | PROVIDERS: PCP Family Medicine Adult Medicine; Visit Provider Surgery | DX: M19.011 Primary osteoarthritis, right shoulder (principal); Z12.11 Encounter for screening for malignant neoplasm of colon | CPT/HCPCS: 73020; 73030; 99024; 99214 ==

== ENCOUNTER 2024-09-02 09:53 | Outpatient (CLI) | payer MEDICARE, MEDICAID, SELFPAY ==
--- NOTE | 2024-09-02 10:15 | US_ITS ---
WS: [id number] Subcutaneous ultrasound of palpable nodule in right anterior shoulder, 09/02/2024 Clinical Data: arthrosis of right shoulder Comparison: None. Findings: Adjacent to the solid density is a cystic structure measuring 0.5 x 0.7 x 0.8 cm. The solid structure adjacent to the cystic area measures 0.8 x 1.4 x 1.6 cm and shows mixed echotexture with calcificati ons. The border is well-defined but irregular. US/US soft tissue/extremity 21246 Impression: 1. Density in subcutaneous region right anterior shoulder which contains mixed echotexture and a cystic region and is nonspecific. 2. Soft tissue masses such as fibroma, lipoma and other entities could cause th is lesion.
== END 2024-09-02 09:54 | disposition home or self-care (01) ==
PROVIDERS: PCP Family Medicine Adult Medicine; Visit Provider Surgery
DX: M19.011 Primary osteoarthritis, right shoulder (principal); R93.89 Abnormal findings on diagnostic imaging of other specified body structures
CPT/HCPCS: 76882

== ENCOUNTER 2024-09-07 08:16 | Day surgery (SDC) | payer MEDICARE, SELFPAY ==
[2024-09-07 08:34] VITALS: BMI 25.1
[2024-09-07 08:40] VITALS: BP 124/76; PULSE 100; RESP 16; TEMP 37.1; O2SAT 98
--- NOTE | 2024-09-07 08:44 | P.HPUD_ITS ---
Surgery/Procedure H&P Update DATE OF PROCEDURE: September 07, 2024 DATE H&P PERFORMED: 08/10/24 H&P UPDATE INFORMATION: I have reviewed H&P completed within last 30 days, I have examined patient prior to procedure, No changes to prior documentation and H&P is in [facility] [place] EMR on date indicated PLANNED PROCEDURE: Operation Date: 09/07/24 09:55 Proposed Procedures p Colonoscopy 64764, G0105,Z12.11(Not Applicable) - Enoc Newell MD
[2024-09-07] MEDS: sodium chloride 0.9% 500 ML 15 ML IV (08:45)
--- NOTE | 2024-09-07 08:45 | ANES.PREANE2 ---
Pre-Anesthetic Assessment Height/Weight: Height 1.75 m Weight 77.111 kg Temp Pulse Resp BP Pulse Ox 98.7 F 100 16 124/76 98 09/07/24 08:40 09/07/24 08:40 09/07/24 08:40 09/07/24 08:40 09/07/24 08:40 Operation Date: 09/07/24 09:55 Proposed Procedures p Colonoscopy 14060, G0105,Z12.11(Not Applicable) - Enoc Newell MD Familial anesthetic complications: None Was Beta Brooks taken within 24 hours: N/A Was Clonidine taken within 24 hours: N/A Last intake: Intake Last Liquid Date 09/06/24 Last Liquid Time 19:00 Last Solid Date 09/05/24 Last Solid Time 13:00 Social Tobacco and No alcohol 0.5 pack(s) per day 50 pack years Exam alert, oriented x 3, clear to auscultation bilaterally and regular rate & rhythm Airway Submandibular: within normal limits Cervical ROM: within normal limits Mallampati: Class II Comments: Comments: Edentulous History/ROS No significant history except as noted and No significant complaints Pulmonary None reported CV/HEM Coronary Artery Disease and Hypertension None reported Hepatic Hepatomegaly GI Gastroesophageal Reflux Disease Adenocarcinoma of cecum Metabolic Hyperlipidemia [facility] [place] Lower Back Pain Neuropsych Anxiety, Depression and Neuropathy (States his hands are always numb) Anesthetic Plan ASA status: 3 Anesthesia: Anesthesia Evaluation, General and MAC Risk of > 500 ml blood loss (7ml/kg in children): No Medications/Allergies Home Medications Medication Instructions Recorded Confirmed Last Taken Type citalopram 40 mg tablet 40 mg PO DAILY depression #90 tabs 04/07/24 09/06/24 09/06/24 Rx lisinopril 20 mg tablet 20 mg PO DAILY blood pressure #90 05/18/24 09/06/24 09/06/24 Rx tabs atorvastatin 10 mg tablet 10 mg PO BEDTIME cholesterol #90 06/04/24 09/06/24 09/06/24 Rx tabs gabapentin 300 mg capsule 300 mg PO BID chronic pain #60 caps 07/12/24 09/06/24 09/06/24 Rx duloxetine 30 mg capsule,delayed 30 mg PO BID #60 caps 07/28/24 09/06/24 09/06/24 Rx release cane #1 ea 08/10/24 08/10/2425 Rx cane #1 ea 08/10/24 08/10/24 09/06/24 Rx ondansetron 8 mg disintegrating 8 mg PO Q8H PRN nausea and 08/10/24 09/06/24 09/06/24 Rx tablet vomiting #3 tabs hydrocodone 7.5 mg-acetaminophen 1 tab PO .q6 hr PRN break through 08/30/24 09/06/24 09/06/24 Rx 325 mg tablet pain 30 days #120 tabs Allergies Allergy/AdvReac Type Severity Reaction Status Date / Time No Known Allergies Allergy Verified 09/06/24 08:23 [facility] Anesthesia Medical History Encounter for chronic pain management Adenocarcinoma of cecum Lumbar spinal stenosis Back pain of lumbar region with sciatica sciatica on right Intussusception of colon Chronic GERD Depression Pain involving joints of fingers of both hands 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 Hepatomegaly Insomnia Intractable neuropathic pain of hand Hx of carpal tunnel syndrome Hx of migraine headaches Hx of herpes zoster Hx of irritable bowel syndrome Erectile dysfunction CAD (coronary artery disease) Dyslipidemia HTN (hypertension) Surgical History History of right hemicolectomy (05/18/23) Hx of arthroscopy of right knee Hx of carpal tunnel repair Hx of appendectomy Hx of discectomy Hx of CABG Family History Other Diabetes Social History (Updated 08/10/24 @ 09:20 by GULSHAN De Jesus) Smoking and tobacco/nicotine status: current every day tobacco/nicotine user cigarettes Packs smoked per day: 0.5 Years cigarettes smoked: 50 Alcohol intake: never Substance/Drug Use: never Data Anesthesia Cardiac Studies: No Data to Display
[2024-09-07] MEDS: ondansetron 2 mg/ML SDV 2 mL 4 MG IVP (08:46)
[2024-09-07 09:21] VITALS: BP 106/64; PULSE 78; RESP 18; TEMP 36.4; O2SAT 97
[2024-09-07 09:29] VITALS: BP 108/65; PULSE 85; RESP 18; TEMP 36.4; O2SAT 99
--- NOTE | 2024-09-07 09:46 | ANE.PACU2 ---
Inpatient post-anesthesia follow up: Airway intact: Yes Vital signs: Temperature 97.5 F Pulse Rate 85 Respiratory Rate 18 Blood Pressure 108/65 Pulse Oximetry 99 Oxygen Delivery Me thod Room Air Oxygen Flow Rate Fraction of Inspir ed Oxygen Hydration adequate: Yes Nausea and vomiting: No Pain level: 1 Mental status: Baseline
== END 2024-09-07 09:46 | disposition home or self-care (01) ==
PROVIDERS: PCP Family Medicine; Visit Provider Surgery
PROC: 0DJD8ZZ Inspection of Lower Intestinal Tract, Via Natural or Artificial Opening Endoscopic (ICD-10-PCS; CPT 45378; principal; 2024-09-07 09:55)
DX: Z12.11 Encounter for screening for malignant neoplasm of colon (principal); D12.4 Benign neoplasm of descending colon; D12.8 Benign neoplasm of rectum; K21.9 Gastro-esophageal reflux disease without esophagitis; F32.A Depression, unspecified; I25.10 Atherosclerotic heart disease of native coronary artery without angina pectoris; E78.5 Hyperlipidemia, unspecified; I10 Essential (primary) hypertension; F17.210 Nicotine dependence, cigarettes, uncomplicated
CPT/HCPCS: 45380; 88305; J2405; J2704; J7040

== ENCOUNTER → 2024-10-01 11:24 | Outpatient (BNVA) | payer MEDICARE, SELFPAY | PROVIDERS: PCP Family Medicine; Visit Provider Family Medicine | DX: I10 Essential (primary) hypertension (principal); I25.118 Atherosclerotic heart disease of native coronary artery with other forms of angina pectoris; F32.9 Major depressive disorder, single episode, unspecified; E78.5 Hyperlipidemia, unspecified; K21.9 Gastro-esophageal reflux disease without esophagitis; Z12.5 Encounter for screening for malignant neoplasm of prostate; C18.0 Malignant neoplasm of cecum | CPT/HCPCS: 80053; 80061; 82607; 84443; 85025; 86431 ==

== ENCOUNTER 2024-10-28 11:43 | Outpatient (CLI) | payer MEDICARE, SELFPAY ==
--- NOTE | 2024-10-28 11:45 | MR_ITS ---
WS: [id number] MRI LUMBAR SPINE NONCONTRAST TECHNIQUE: Sagittal T1, T2 and STIR imaging. Axial T1 and T2 imaging. CLINICAL INFORMATION: lumbar stenosis with neurogenic claudication COMPARISON: MRI 10/30/2023 FINDINGS: Mild lumbar curve. No acute compression. Slight anterolisthesis L4 on L5. Multilevel severe central canal stenosis due to disc bulging combination with facet arthropathy and ligamentum flavum hypertrophy. L1-L2: Central disc bulging with severe central canal stenosis unchanged. Moderate facet arthropathy. Moderate LEFT and mild RIGHT foraminal narrowing with LEFT greater than RIGHT foraminal protrusions. L2-L3: Severe central canal stenosis with mild annular bulging. Moderate facet arthropathy. Severe impingement on the subarticular recess bilaterally. Moderate bilateral foraminal narrowing. L3-L4: Central disc protrusion with severe central canal stenosis. Severe impingement on the subarticular recess bilaterally is unchanged. Moderate facet arthropathy. Moderate bilateral foraminal narrowing with bilateral foraminal protrusions. L4-L5: Severe central canal stenosis with slight anterolisthesis. RIGHT paracentral protrusion. This is unchanged. Severe RIGHT and mild LEFT foraminal narrowing. Advanced facet arthropathy. L5-S1: Mild annular bulging. Slight impingement on the traversing S1 nerve roots. Moderate facet arthropathy. Mild LEFT and no significant RIGHT foraminal narrowing. Small LEFT renal cyst. Visualized pelvic bony structures: Normal. Paravertebral soft tissues: Normal. Prior cervical fusion C5-C7. Mild central canal stenosis C4-5. MR/MR lumbar spine wo con* [id number] IMPRESSION: 1. Severe multilevel central canal stenosis overall stable compared to 2023. 2. Severe central canal stenosis L1-L2, L2-3, L3-4, and L4-5. 3. Disc bulge L5-S1 slightly impinges the traversing S1 nerve roots. 4. Multilevel foraminal narrowing described above severe at RIGHT L4-5 with im pingement on the exiting RIGHT L4 nerve root.
== END 2024-10-28 11:44 | disposition home or self-care (01) ==
PROVIDERS: PCP Family Medicine; Visit Provider Family Medicine
DX: M48.062 Spinal stenosis, lumbar region with neurogenic claudication (principal); M51.369 Other intervertebral disc degeneration, lumbar region without mention of lumbar back pain or lower extremity pain; R93.7 Abnormal findings on diagnostic imaging of other parts of musculoskeletal system; M43.8X6 Other specified deforming dorsopathies, lumbar region; M47.896 Other spondylosis, lumbar region; M24.28 Disorder of ligament, vertebrae; M51.379 Other intervertebral disc degeneration, lumbosacral region without mention of lumbar back pain or lower extremity pain; M47.897 Other spondylosis, lumbosacral region; N28.1 Cyst of kidney, acquired; Z98.1 Arthrodesis status; M48.02 Spinal stenosis, cervical region
CPT/HCPCS: 72148

== ENCOUNTER 2025-02-24 15:09 | Outpatient (CLI) | payer MEDICARE, SELFPAY ==
--- NOTE | 2025-02-24 16:15 | CT_ITS ---
WS: [id number] LDCT LUNG CANCER SCREENING HISTORY: smoker, 25pk yr; screening TECHNIQUE: Axial imaging performed from the apices to 1 cm below the costophrenic angles. Coronal and sagittal reformats are submitted with axial MIP series. All CT scans at [facility] use at least one of these dose optimization techniques: automated exposure control; mA and/or kV adjustment per patient size (includes targeted exams where dose is matched to clinical indication); or iterative reconstruction. DLP: 60.99 mGy.cm DIvol: Mean CTDIvol: 1.10 (mGy) COMPARISON: 07/08/2023 Diagnostic quality: Satisfactory. Lungs: Benign calcified granuloma LEFT lower lobe. No endobronchial lesions. No pneumonia. Heart: Normal size heart. Moderate coronary artery calcifications.. Other findings: Atherosclerosis aorta. Normal size pulmonary artery. No pathologically enlarged lymph nodes. Motion of the upper abdomen. Pancreas and adrenal glands are poorly visualized. Mild degenerative changes in the thoracic spine and hypertrophic osteophytosis. CT/CT lung screening 11030 IMPRESSION: LUNG-RADS: 2-Benign Appearance or Behavior FOLLOW UP: 12 Month: Continue annual screening with LDCT OTHER FINDINGS (S MODIFIER): None.
== END 2025-02-24 15:10 | disposition home or self-care (01) ==
PROVIDERS: PCP Family Medicine; Visit Provider Family Medicine
DX: Z12.2 Encounter for screening for malignant neoplasm of respiratory organs (principal); F17.218 Nicotine dependence, cigarettes, with other nicotine-induced disorders
CPT/HCPCS: 71271

== ENCOUNTER 2025-04-29 08:03 | Emergency (ER) | payer MEDICARE, SELFPAY ==
[2025-04-29] VITALS (9 sets, daily range): BP systolic 145–188; BP diastolic 68–86; PULSE 57–72; RESP 16–18; TEMP 36.6; O2SAT 91–99; BMI 25.4
--- NOTE | 2025-04-29 08:21 | ED_ITS ---
HPI - General Adult 2 General: Chief complaint: General Medical Stated complaint: pain in the lower abd/groin area Time Seen by Provider: 04/29/25 08:19 History of Present Illness: 69-year-old man with a history of anxiet y, history of colon cancer status post chemo and surgical intervention, coronary artery disease, hyperlipidemia and hypertension who presents emergency room from urgent care clinic. He says he has been having some swelling in his suprapubic area. No testicular pain. No testicle swelling. No trouble urinating. No trouble defecating. No fevers. No nausea or vomiting. Related Data Previous Rx's ?Medication ?Instructions ?Recorded atorvastatin 10 mg tablet 10 mg PO BEDTIME cholesterol #90 06/04/24 tabs cane #1 ea 08/10/24 cane #1 ea 08/10/24 ondansetron 8 mg disintegrating 8 mg PO Q8H PRN nausea and 08/10/24 tablet vomiting #3 tabs gabapentin 300 mg capsule 300 mg PO BID chronic pain # 60 caps 01/15/25 nicotine See Rx Instructions transder mal 02/07/25 21mg/24hr-14mg/24hr-7mg/24hr daily .COMPLEX #56 patche s transderm patches,sequentl lisinopril 20 mg tablet See Rx Instructions .Route 0 02/23/25 .COMPLEX #90 tabs zolpidem 10 mg tablet (Ambien) 10 mg PO .qpm PRN insom buck #30 tabs 03/23/25 doxycycline hyclate 100 mg capsule 100 mg PO BID 10 da ys #20 caps 04/11/25 hydrocodone 7.5 mg-acetaminophen 1 tab PO .q6 hr PRN b reak through 04/22/25 325 mg tablet pain 30 days #120 tabs sertraline 25 mg tablet See Rx Instructions .Route 0 04/22/25 .COMPLEX #30 tabs oxycodone 10 mg tablet 10 mg PO Q6H PRN pain #20 ta bs 04/29/25 Allergies Allergy/AdvReac Type Severity Reaction Status Date / Time No Known Allergies Allergy Verified 04/29/25 07:41 Review of Systems 2 Narrative: Constitutional symptoms: Negative except as documented in HPI. Skin symptoms: Negative except as documented in HPI. Eye symptoms: Negative except as documented in HPI. ENMT symptoms: Negative except as documented in HPI. Respiratory symptoms: Negative except as documented in HPI. Cardiovascular symptoms: Negative except as documented in HPI. Gastrointestinal symptoms: Negative except as documented in HPI. Genitourinary symptoms: Negative except as documented in HPI. Musculoskeletal symptoms: Negative except as documented in HPI. Neurologic symptoms: Negative except as documented in HPI. Psychiatric symptoms: Negative except as documented in HPI. Endocrine symptoms: Negative except as documented in HPI. PFS ED 2 PFS: Medical History (Updated 04/29/25 @ 10:39 by Patrica Womack MD) Screening for lung cancer LDCT 7, f/u 1 yr Nicotine dependence, cigarettes, with other nicotine-induced disorders Lumbar stenosis with neurogenic claudication referred to neurosurgeon but he canceled appt--doesn't want surgery Anxiety Atrophy of muscle of right lower leg due to lumbar problems Encounter for chronic pain management hydrocodone for chronic back pain; legacy patient inherited Adenocarcinoma of cecum had hemicolectomy; no radiation; took chemo X 6 months; no longer sees oncologist; sees DR. Dey--surgeon Lumbar spinal stenosis Back pain of lumbar region with sciatica sciatica on right Chronic GERD Depression citalopram, duloxetine, wellbutrin, mirtazipine and abilify did not help Pain involving joints of fingers of both hands Hepatomegaly Insomnia tried doxepin, mirtazipine, abilify, zolpidem Intractable neuropathic pain of hand Hx of migraine headaches Hx of herpes zoster Hx of irritable bowel syndrome Erectile dysfunction CAD (coronary artery disease) hx of cardiac cath that showed blockage; no stents Dyslipidemia HTN (hypertension) Surgical History Hx of colonoscopy 09.07.24--normal; f/u 3 yrs; DR. Dey Hx of cardiac cath cardiac cath by DR. 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 Skin: Warm, dry. Head: Normocephalic, atraumatic. Neck: Supple, trachea midline. Eye: Extraocular movements are intact. Ears, nose, mouth and throat: mucosa moist. Cardiovascular: Regular, Normal peripheral perfusion. Respiratory: Lungs are clear to auscultation, respirations are non-labored, breath sounds are equal, Symmetrical chest wall expansion. Gastrointestinal: Soft, Nontender, Non distended. Patient reports that his suprapubic area is swollen. There appears to possibly some slight redness. Musculoskeletal: Normal ROM, no deformity. Neurological: Alert and oriented, No focal neurological deficit observed. Psychiatric: Cooperative, appropriate mood & affect. Course 2 Vital Signs: Vital signs: Vital Signs Temperature 97.8 F 04/29/25 08:11 Pulse Rate 60 04/29/25 12:30 Respiratory Rate 16 04/29/25 12:28 Blood Pressure 145/85 04/29/25 12:30 Pulse Oximetry 95 04/29/25 12:30 Oxygen Delivery Me thod Room Air 04/29/25 08:11 MDM - General Adult Medical Decision Making Medical decision making: Differential diagnosis including but not limited to and based on the above HPI, review of systems and physical exam: Orders placed to evaluate differential diagnosis based on the above differential, HPI and physical exam Lab Review: Laboratory results were reviewed and interpreted by myself the emergency room physician. No leukocytosis. No anemia. No renal failure. Urinalysis is negative for infection. Liver enzymes are normal. No signs of obstruction. I reviewed the patient's medical record. CT of the abdomen pelvis: Multiple findings with concern for metastatic recurrence of cancer. Soft tissue mass at the hepatic flexure at the anastomotic site. Concern for a mass at the pancreas. Extensive inguinal lymph nodes. This is all highly suspicious for metastatic disease. See radiology report for full details. This was reviewed and interpreted by myself the emergency room physician. I also reviewed the radiology report. I discussed these findings at length with the patient and the family. Ultrasound of the lower extremities and pelvis: No evidence of DVT. Soft tissue mass in the right groin likely metastatic adenopathy. This was reviewed and interpreted by myself the emergency room physician. I also reviewed the radiology report. Consultation: I spoke with Dr. Montalvo who recommends biopsy and PET scan. These can be done as an outpatient. He will follow with the patient as soon as possible after the studies are done. Reexamination: Patient remained stable. No increased work of breathing. No altered mental status. No focal motor deficits. I discussed findings at length with the patient. I discussed the findings and the concern for recurrence of cancer. He is having increased pain secondary to adenopathy it seems. He is already on [place] so I am going to give him a brief course of oxycodone and he can discuss this with the prescribing provider of his pain medications. Consultation: Case management was consulted and orders were initiated for PET scan and ultrasound-guided biopsy. I discussed biopsy with radiologist Dr. Perera and she feels that lymph nodes should be able to be biopsied by ultrasound Assessment and plan: Multiple abdominal masses Adenopathy ?IV morphine and then p.o. oxycodone. - Discharged home - Discussed findings and plan with patient. Answered any questions. - All laboratory values were reviewed and interpreted personally by myself, the ER physician - All imaging was reviewed and interpreted personally by myself, the ER physician. - Evaluation and treatment of this problem were appropriate in the emergency setting Lab Data 04/29/25 08:20 04/29/25 08:20 Radiology Impressions Abdomen/Pelvis CT 04/29/25 08:39 IMPRESSION: 1. RIGHT hepatic flexure anastomotic site is identified. There is a soft tissue mass near the anastomotic site which was not present on the prior study suspicious for recurrent colon cancer. 2. There is extensive pathologic adenopathy throughout the mesentery. Additional bilateral inguinal adenopathy. Soft tissue mass in the RIGHT inguinal region encasing the iliac artery and vein is probably a cluster of lymph nodes. Highly suspicious for metastatic disease. 3. Soft tissue mass near the pancreatic head with extension to contact the portal vein, hepatic artery and common bile duct/cystic duct. Metastatic adenopathy versus pancreatic head neoplasm/cholangiocarcinoma. 4. No intrahepatic duct dilatation. 5. Cholelithiasis without acute cholecystitis. 6. Suspicious for RIGHT femoral vein DVT. Consider follow-up ultrasound evaluation. 7. No destructive bone lesion. 8. Soft tissue edema at the base of the penis. No mass identified. Notified Patrica Womack MD at 04/29/2025 9:47 AM. Pelvis Ultrasound 04/29/25 11:11 IMPRESSION: 1. Additional imaging demonstrates patency of the RIGHT femoral artery and vein at the groin. There is no DVT noted. Distal iliac vein is also patent. 2. There is a large soft tissue mass at the RIGHT groin previously described by CT measuring 3.9 x 3.8 x 2.9 cm. Metastatic adenopathy likely. Laboratory Results WBC 7.36 10^3/uL (3.29-11.43) 04/29/25 08:20 RBC 4.50 10^6/uL (3.85-5.65) 04/29/25 08:20 Hgb 12.80 g/dL (11.27-16.99) 04/29/25 08:20 Hct 39.5 % (37-53) 04/29/25 08:20 MCV 87.8 fl (82-101) 04/29/25 08:20 MCH 28.4 pg (27-33) 04/29/25 08:20 MCHC 32.4 g/dL (30-55) 04/29/25 08:20 RDW 15.1 % (12.1-15.1) 04/29/25 08:20 Plt Count 303 10^3/cmm (157-399) 04/29/25 08:20 MPV 10.5 fL (7.4-10.4) H 04/29/25 08:20 Neut % (Auto) 56.2 % 04/29/25 08:20 Lymph % (Auto) 27.2 % 04/29/25 08:20 [place] % (Auto) 9.0 % 04/29/25 08:20 Eos % (Auto) 6.3 % 04/29/25 08:20 Baso % (Auto) 1.0 % 04/29/25 08:20 Neut # (Auto) 4.15 10^3/uL (1.8-7.7) 04/29/25 08:20 Lymph # (Auto) 2.0 10^3/uL (0.8-4.8) 04/29/25 08:20 [place] # (Auto) 0.7 10^3/uL (0.2-0.9) 04/29/25 08:20 Eos # (Auto) 0.5 10^3/uL (0.0-0.8) 04/29/25 08:20 Baso # (Auto) 0.1 10^3/uL (0.0-0.1) 04/29/25 08:20 Nucleated RBC % (auto) 0 % 04/29/25 08:20 Nucleated RBCs # 0.0 /100WBC 04/29/25 08:20 Sodium 138 mmol/L (136-145) 04/29/25 08:20 Potassium 4.2 mmol/L (3.5-5.1) 04/29/25 08:20 Chloride 101 mmol/L (98-107) 04/29/25 08:20 Carbon Dioxide 24 mmol/L (22-29) 04/29/25 08:20 Anion Gap 17.2 (5-19) 04/29/25 08:20 BUN 11 mg/dL (8-23) 04/29/25 08:20 Creatinine 0.6 mg/dL (0.7-1.2) L 04/29/25 08:20 GFR Calculation 134.0 mL/min (90-130) H 04/29/25 08:20 Glucose 96 mg/dL (65-115) 04/29/25 08:20 Calculated Osmolality 285 mOsm/kg (285-295) 04/29/25 08:20 Calcium 9.0 mg/dL (8.5-10.5) 04/29/25 08:20 Total Bilirubin 0.2 mg/dL (0.15-1.2) 04/29/25 08:20 AST 17 U/L (0-40) 04/29/25 08:20 ALT 11 U/L (0-41) 04/29/25 08:20 Alkaline Phosphatase 101 U/L (40-130) 04/29/25 08:20 Total Protein 7.4 g/dL (6.6-8.7) 04/29/25 08:20 Albumin 3.9 g/dL (3.5-5.2) 04/29/25 08:20 Globulin 3.5 g/dL (1.3-4.6) 04/29/25 08:20 Lipase 22 U/L (13-60) 04/29/25 08:20 Urine Color Yellow (Yellow) 04/29/25 08:41 Urine Appearance Clear (CLEAR) 04/29/25 08:41 Urine pH 5.5 (5-7) 04/29/25 08:41 Ur Specific [place] 1.016 (1.005-1.030) 04/29/25 08:41 Urine Protein Negative (Negative) 04/29/25 08:41 Urine Glucose (UA) Negative (Normal) 04/29/25 08:41 Urine Ketones Negative (Negative) 04/29/25 08:41 Urine Blood Negative (Negative) 04/29/25 08:41 Urine Nitrate Negative (Negative) 04/29/25 08:41 Urine Bilirubin Negative (Negative) 04/29/25 08:41 Urine Urobilinogen 1.0 mg/dL (Negative) 04/29/25 08:41 Ur Leukocyte Esterase Negative (Negative) 04/29/25 08:41 Urine RBC 0-2 /hpf (0-2) 04/29/25 08:41 Urine WBC 0-5 /hpf (0-5) 04/29/25 08:41 Ur Squamous Epith Cells 0-5 /hpf (0-5) 04/29/25 08:41 Amorphous Sediment Not Reportable 04/29/25 08:41 Urine Bacteria None seen /hpf (NONE) 04/29/25 08:41 Hyaline Casts 0.81 /lpf 04/29/25 08:41 All radiology interpretation(s) finalized by discharge ED provider radiology interpretation(s): CT ABDOMEN AND PELVIS WITH CONTRAST HISTORY: Abdominal pain, history of colon cancer. TECHNIQUE: Imaging performed of the abdomen and pelvis with IV contrast. Single phase imaging of the abdomen. Coronal and sagittal reformats are submitted. All CT scans at [facility] use at least one of these dose optimization techniques: automated exposure control; mA and/or kV adjustment per patient size (includes targeted exams where dose is matched to clinical indication); or iterative reconstruction. IV CONTRAST: Omnipaque 350; 100 mL IV. Oral contrast: No DLP: 634.93 mGy.cm COMPARISON: 07/08/2023 Lower thorax: Benign calcified granuloma LEFT lung base. No mass. Calcification in the distal thoracic aorta. Heart is normal size. No hiatal hernia. Liver/biliary system: Normal size with no intrahepatic dilatation. Gallbladder: Gallbladder is normally distended with stones. There is mild pericholecystic fluid and very slight wall thickening. Pancreas: There is a low-attenuation mass abutting the pancreatic head measuring 2.8 x 2.9 cm. No dilatation of the pancreatic duct or the common bile duct. There is extension of this low-attenuation mass along the posterior portal vein towards the kizzy hepatis. There is a soft tissue nodule measuring 1.2 cm near the kizzy hepatis in the expected location of the cystic duct. This nodule is in contact with the duodenum, gallbladder and common bile duct. Common bile duct at the pancreatic head is 5 mm. Portal vein is patent although closely associated with the mass near the pancreatic head. Spleen: Normal size spleen. No mass or infarct. Adrenal glands: Normal. Right kidney: Normal. Left kidney: Normal size kidney. Lower pole 8 mm cyst. No solid mass within either kidney. No obstruction. Aorta: Mild atherosclerosis with no aneurysm. Mild atherosclerosis aorta. SMA is intact. Celiac axis is intact. The hepatic artery branch of the celiac axis is in close contact with the low-attenuation mass centered near the pancreatic head. Lymphadenopathy: Numerous mesenteric lymph nodes are identified. Lymph nodes are noted within the anterior mesentery close to the omentum. There are numerous lymph nodes in the central mesentery with the greatest distribution of lymph nodes in the RIGHT lower quadrant. Shotty retroperitoneal lymph nodes. Free fluid: None. GI tract: Stomach is mildly distended with food products. No small bowel obstruction. Anastomotic sutures near the RIGHT hepatic flexure are identified. There is a soft tissue mass now present at the anastomotic site which was not present on the prior study. Not causing significant obstruction. Abdominal wall: RIGHT lateral ventral abdominal wall hernia contains fat only. Pelvis: There is a soft tissue mass in the RIGHT inguinal region encasing the RIGHT iliac vein and artery. Mass measures 5.8 x 3.9 cm and is probably a cluster of lymph nodes. Mildly enlarged RIGHT femoral vein suspicious for DVT. Bilateral inguinal lymphadenopathy. The largest lymph node is on the LEFT at 2.7 cm in diameter. There is additional soft tissue edema in the pelvis greatest involving the base of the penis. Bones: Degenerative disc disease at L4-5. No destructive bone lesion. Benign bone islands in the femoral heads. Component of osteonecrosis of the RIGHT femoral head is suspected. Discharge Plan Discharge Patient Disposition: Home Clinical Impression: Abdominal mass, Lymphadenopathy Condition: Stable Prescriptions: New oxycodone 10 mg tablet 10 mg PO Q6H PRN (Reason: pain) Qty: 20 0RF No Action atorvastatin 10 mg tablet 10 mg PO BEDTIME Qty: 90 1RF nicotine 21-14-7 mg/24 hr patch, TD daily, sequential See Rx Instructions transdermal .COMPLEX Qty: 56 0RF Rx Instructions: apply 1-21 mg NICOTINE PATCH daily for 28 days; follow with 1-14 mg PATCH daily for 14 days, then 1-7mg PATCH daily for 14 days transdermal doxycycline hyclate 100 mg capsule 100 mg PO BID 10 Days Qty: 20 0RF (DME) cane Device See Rx Instructions .Route Qty: 1 0RF Rx Instructions: As directed (DME) cane Device See Rx Instructions .Route Qty: 1 0RF Rx Instructions: As directed ondansetron 8 mg tablet,disintegrating 8 mg PO Q8H PRN (Reason: nausea and vomiting) Qty: 3 0RF gabapentin 300 mg capsule 300 mg PO BID Qty: 60 5RF lisinopril 20 mg tablet See Rx Instructions .ROUTE .COMPLEX Qty: 90 1RF Dose Instruction: TAKE 1 TABLET BY MOUTH EVERY DAY FOR BLOOD PRESSURE Rx Instructions: TAKE 1 TABLET BY MOUTH EVERY DAY FOR BLOOD PRESSURE zolpidem [Ambien] 10 mg tablet 10 mg PO .qpm PRN (Reason: insomnia) Qty: 30 5RF sertraline 25 mg tablet See Rx Instructions .ROUTE .COMPLEX Qty: 30 3RF Dose Instruction: TAKE 1 TABLET BY MOUTH EVERY EVENING Rx Instructions: TAKE 1 TABLET BY MOUTH EVERY EVENING hydrocodone-acetaminophen 7.5-325 mg tablet 1 tab PO .q6 hr PRN (Reason: break through pain) 30 Days Qty: 120 0RF Rx Instructions: After previous 30 days prescription 7.5/325 Discharge Orders: Discharge ED (Routine); Ordered 04/29/25 Ordered By: Patrica Womack Referrals: Nancy Neely MD [Primary Care Provider, Family Practice] Referral Note: Please arrange for follow up with you pcp to assure biopsy and PET scan are completed. Mckinley Montalvo MD [Hospitalist, Oncology] Referral Note: please call for follow up appointment with Dr. Montalvo or DIng Discharge Diet: Usual diet Discharge Activity: Increase activity as tolerated Patient Instructions: Opioid Safety, Pain Management, Patient Portal & Aiyana Instructions Activity Restrictions/Additional Instructions: You need to follow-up with your primary provider and with oncology as soon as possible. We are working to schedule a PET/CT and biopsy. If these are not able to be scheduled out of the emergency room he will need to see her primary to help schedule them. This needs to be done within the next week to 10 days. Thank you for choosing [facility] for your healthcare needs today. You have been screened and evaluated and felt safe for discharge. Health conditions do change or evolve sometimes and as such it is important that you follow up with your Primary Doctor to be re checked, 3-5 days is a general good time frame for follow up. You are always welcome to return to the ED for re assessment if your symptoms are worsening or you have new concerns Print Language: Romanian Coding Level of Care Code ED Certified Personal Finance Counselor for 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
[2025-04-29 08:28] LABS: Hematocrit 39.5 % (37-53); Hemoglobin 12.80 g/dL (11.27-16.99); Mean Corpuscular HGB Conc 32.4 g/dL (30-55); Mean Corpuscular Hemoglobin 28.4 pg (27-33); Mean Corpuscular Volume 87.8 fl (82-101); Nucleated Red Blood Cells % 0 %; Platelet Count 303 10^3/cmm (157-399); Red Blood Count 4.50 10^6/uL (3.85-5.65); White Blood Count 7.36 10^3/uL (3.29-11.43)
--- NOTE | 2025-04-29 08:39 | CT_ITS ---
WS: [id number] CT ABDOMEN AND PELVIS WITH CONTRAST HISTORY: Abdominal pain, history of colon cancer. TECHNIQUE: Imaging performed of the abdomen and pelvis with IV contrast. Single phase imaging of the abdomen. Coronal and sagittal reformats are submitted. All CT scans at [facility] use at least one of these dose optimization techniques: automated exposure control; mA and/or kV adjustment per patient size (includes targeted exams where dose is matched to clinical indication); or iterative reconstruction. IV CONTRAST: Omnipaque 350; 100 mL IV. Oral contrast: No DLP: 634.93 mGy.cm COMPARISON: 07/08/2023 Lower thorax: Benign calcified granuloma LEFT lung base. No mass. Calcification in the distal thoracic aorta. Heart is normal size. No hiatal hernia. Liver/biliary system: Normal size with no intrahepatic dilatation. Gallbladder: Gallbladder is normally distended with stones. There is mild pericholecystic fluid and very slight wall thickening. Pancreas: There is a low-attenuation mass abutting the pancreatic head measuring 2.8 x 2.9 cm. No dilatation of the pancreatic duct or the common bile duct. There is extension of this low-attenuation mass along the posterior portal vein towards the kizzy hepatis. There is a soft tissue nodule measuring 1.2 cm near the ikzzy hepatis in the expected location of the cystic duct. This nodule is in contact with the duodenum, gallbladder and common bile duct. Common bile duct at the pancreatic head is 5 mm. Portal vein is patent although closely associated with the mass near the pancreatic head. Spleen: Normal size spleen. No mass or infarct. Adrenal glands: Normal. Right kidney: Normal. Left kidney: Normal size kidney. Lower pole 8 mm cyst. No solid mass within either kidney. No obstruction. Aorta: Mild atherosclerosis with no aneurysm. Mild atherosclerosis aorta. SMA is intact. Celiac axis is intact. The hepatic artery branch of the celiac axis is in close contact with the low-attenuation mass centered near the pancreatic head. Lymphadenopathy: Numerous mesenteric lymph nodes are identified. Lymph nodes are noted within the anterior mesentery close to the omentum. There are numerous lymph nodes in the central mesentery with the greatest distribution of lymph nodes in the RIGHT lower quadrant. Shotty retroperitoneal lymph nodes. Free fluid: None. GI tract: Stomach is mildly distended with food products. No small bowel obstruction. Anastomotic sutures near the RIGHT hepatic flexure are identified. There is a soft tissue mass now present at the anastomotic site which was not present on the prior study. Not causing significant obstruction. Abdominal wall: RIGHT lateral ventral abdominal wall hernia contains fat only. Pelvis: There is a soft tissue mass in the RIGHT inguinal region encasing the RIGHT iliac vein and artery. Mass measures 5.8 x 3.9 cm and is probably a cluster of lymph nodes. Mildly enlarged RIGHT femoral vein suspicious for DVT. Bilateral inguinal lymphadenopathy. The largest lymph node is on the LEFT at 2.7 cm in diameter. There is additional soft tissue edema in the pelvis greatest involving the base of the penis. Bones: Degenerative disc disease at L4-5. No destructive bone lesion. Benign bone islands in the femoral heads. Component of osteonecrosis of the RIGHT femoral head is suspected. CT/CT abdomen pelvis w con* [id number] IMPRESSION: 1. RIGHT hepatic flexure anastomotic site is identified. There is a soft tissu e mass near the anastomotic site which was not present on the prior study suspi cious for recurrent colon cancer. 2. There is extensive pathologic adenopathy throughout the mesentery. Addition al bilateral inguinal adenopathy. Soft tissue mass in the RIGHT inguinal region encasing the iliac artery and vein is probably a cluster of lymph nodes. Highl y suspicious for metastatic disease. 3. Soft tissue mass near the pancreatic head with extension to contact the por tin vein, hepatic artery and common bile duct/cystic duct. Metastatic adenopath y versus pancreatic head neoplasm/cholangiocarcinoma. 4. No intrahepatic duct dilatation. 5. Cholelithiasis without acute cholecystitis. 6. Suspicious for RIGHT femoral vein DVT. Consider follow-up ultrasound evalua tion. 7. No destructive bone lesion. 8. Soft tissue edema at the base of the penis. No mass identified. Notified Patrica Womack MD at 04/29/2025 9:47 AM.
[2025-04-29 08:45] LABS: Alanine Aminotransferase 11 U/L (0-41); Albumin Level 3.9 g/dL (3.5-5.2); Alkaline Phosphatase 101 U/L (40-130); Anion Gap 17.2 (5-19); Aspartate Amino Transferase 17 U/L (0-40); Blood Urea Nitrogen 11 mg/dL (8-23); Calcium 9.0 mg/dL (8.5-10.5); Carbon Dioxide 24 mmol/L (22-29); Chloride 101 mmol/L (98-107); Creatinine Clr Calc Pharmacy 92.0340; Globulin 3.5 g/dL (1.3-4.6); Glucose 96 mg/dL (65-115); Osmolality Calculated 285 mOsm/kg (285-295); Potassium 4.2 mmol/L (3.5-5.1); Sodium 138 mmol/L (136-145); Total Protein 7.4 g/dL (6.6-8.7)
[2025-04-29 08:50] LABS: Glucose Urine UA Negative (Normal); Nitrate Urine Negative (Negative); Specific Gravity, Urine 1.016 (1.005-1.030)
[2025-04-29] MEDS: iohexol 350 mg/mL 500 mL Btl (per mL) IV (09:11)
--- NOTE | 2025-04-29 09:50 | USCV_ITS ---
Glenn Berg Age: 69 Gender: M : 1955 Exam Date: 04/29/2025 10:09 Ordering Phys: Patrica Womack MD Technologist: JOSSELINE [place] [facility] [place]ication: LE Swelling HISTORY: Lower extremity swelling. PROCEDURES: Venous duplex imaging was performed in bilateral lower extremities. The following venous structures were evaluated: common femoral vein, profunda vein, proximal portion of the greater saphenous vein, superficial femoral vein, and the popliteal vein. In addition, the posterior tibial and peroneal trunk were evaluated. Serial compression, augmentation maneuvers, and spectral Doppler flow evaluation were performed. FINDINGS: No evidence of DVT seen in any vessel visualized at this time. Bilateral inguinal lymph nodes, enlarged. CONCLUSIONS No DVT bilateral lower extremities. Bilateral inguinal lymphadenopathy. Dr. Lorraine Perera DO (Electronically Signed) Final Date: 29 April 2025 11:31 S
[2025-04-29 10:32] LABS: Lipase 22 U/L (13-60)
[2025-04-29] MEDS: morphine 4 mg/mL SDV 1 mL IVP (10:50)
[2025-04-29] MEDS: ondansetron 2 mg/ML SDV 2 mL 4 MG IVP (10:50)
--- NOTE | 2025-04-29 11:00 | DCPLANNER ---
faxed outpatient lymph node bx and pet scan orders to scheduling
--- NOTE | 2025-04-29 11:11 | US_ITS ---
WS: [id number] US pelvic limited [id number] HISTORY: possible clot COMPARISON: None available. Ultrasound performed in the RIGHT inguinal region. There is a large soft tissue mass that was described also on CT. This mass measures 3.9 x 3.8 x 2.9 cm. The femoral artery and vein are closely associated with this mass. There is normal flow present within both artery and vein. No tumor thrombus or bland thrombus identified. Good compressibility of the femoral vein and distal iliac vein. US/US pelvic limited [id number] IMPRESSION: 1. Additional imaging demonstrates patency of the RIGHT femoral artery and vei n at the groin. There is no DVT noted. Distal iliac vein is also patent. 2. There is a large soft tissue mass at the RIGHT groin previously described b y CT measuring 3.9 x 3.8 x 2.9 cm. Metastatic adenopathy likely.
[2025-04-29] MEDS: oxyCODONE 5 mg IR Tab/Cap 10 MG PO (12:28)
== END 2025-04-29 12:30 | disposition home or self-care (01) ==
PROVIDERS: Emergency Provider Emergency Medicine; PCP Family Medicine
DX: R19.00 Intra-abdominal and pelvic swelling, mass and lump, unspecified site (principal); R59.1 Generalized enlarged lymph nodes; E78.5 Hyperlipidemia, unspecified; I25.10 Atherosclerotic heart disease of native coronary artery without angina pectoris; I10 Essential (primary) hypertension; Z85.038 Personal history of other malignant neoplasm of large intestine
CPT/HCPCS: 36415; 74177; 76857; 80053; 81000; 81001; 83690; 85025; 93970; 96374; 96375; 99285; J2270; J2405; J9999

== ENCOUNTER 2025-05-04 09:50 | Outpatient (CLI) | payer MEDICARE, SELFPAY ==
[2025-05-04 10:58] LABS: Carcinoembryonic Antigen 20.3 ng/mL (0.0-4.7)
== END 2025-05-04 09:51 | disposition home or self-care (01) ==
PROVIDERS: PCP Family Medicine; Visit Provider Family Medicine
DX: R19.09 Other intra-abdominal and pelvic swelling, mass and lump (principal); F17.210 Nicotine dependence, cigarettes, uncomplicated; Z90.49 Acquired absence of other specified parts of digestive tract; G62.9 Polyneuropathy, unspecified; R19.02 Left upper quadrant abdominal swelling, mass and lump; R59.1 Generalized enlarged lymph nodes; Z85.038 Personal history of other malignant neoplasm of large intestine
CPT/HCPCS: 36415; 82378; 83615; 99213

== ENCOUNTER → 2025-05-10 10:15 | Outpatient (BNVA) | payer MEDICARE, SELFPAY | PROVIDERS: PCP Family Medicine; Visit Provider Surgery | DX: C18.9 Malignant neoplasm of colon, unspecified (principal); C77.2 Secondary and unspecified malignant neoplasm of intra-abdominal lymph nodes | CPT/HCPCS: 99215 ==

== ENCOUNTER 2025-05-13 16:36 | Outpatient (CLI) | payer MEDICARE, SELFPAY ==
--- NOTE | 2025-05-13 16:38 | PETR_ITS ---
PROCEDURE INFORMATION: Exam: PET/CT Skull Base to Mid-thigh Exam date and time: 05/13/2025 6:09 PM Age: 69 years old Clinical indication: Condition or disease; Primary cancer: Colon cancer with imaging showing lesions in abdomen; Prior surgery; Surgery date: 6+ months LABS AND CLINICAL REPORTS: Glucose: 79 mg/dl Treatment strategy for malignancy (PET staging): Initial Staging (PI) TECHNIQUE: Imaging protocol: Following at least four-hour fasting and following the injection of radiopharmaceutical, low dose CT images were obtained. Then, PET images were obtained. Attenuation corrected images were constructed using the CT scan. Fused images of PET and CT were reviewed. The standardized uptake values (SUV) reported below are maximum values within a region of interest, expressed in gm/ml. Exam includes orbital meatal line to mid-thigh. SUV normalization method: BodyWeight Radiopharmaceutical: 10.92 mCi F-18 FDG (Fluorodeoxyglucose), IV. Time of imaging post radiopharmaceutical administration: 46 minutes Injection site: right ac COMPARISON: CT abdomen pelvis w con* [id number] 04/29/2025 8:52 AM, CT chest 02/24/2025, CT abdomen and pelvis 05/18/2023, FINDINGS: Brain: Visualized brain has normal physiologic uptake. Pharynx: No abnormal uptake. Larynx: No abnormal uptake. Lungs, pleura and trachea: No abnormal uptake. Heart: Normal physiologic uptake. Mediastinal space: No abnormal uptake. Liver: No abnormal uptake. Gallbladder and biliary ducts: No abnormal uptake. The small stone in the gallbladder is noted. Pancreas: Elevated uptake in the region of the pancreatic head is noted , SUV max 4.9 on image 137. This uptake corresponds to a masslike structure likely representing lymphadenopathy centered in the portacaval region adjacent to the pancreatic head on the prior CT measuring up to approximately 3.2 x 2.7 cm in the axial plane on CT image 138. Spleen: No abnormal uptake. Adrenal glands: No abnormal uptake. Kidneys and ureters: Normal physiologic uptake. Stomach and bowel: No abnormal uptake. Postsurgical anastomotic staple line in the right colon is noted compatible with partial colectomy without elevated uptake or obvious mass at the operative site. Vasculature: No abnormal uptake. Lymph nodes: A lymph node or soft tissue density nodule along the medial right parotid gland measures 5 mm in short axis on CT image 18 with elevated uptake on PET image 14, SUV max 10.6. Uptake in the bilateral hilar regions is noted without evidence of lymphadenopathy, SUV max 3.8 on the left on image 86 and SUV max 3.4 on the right on image 83, possibly within non pathologically enlarged lymph nodes. A non pathologically enlarged subcarinal lymph node demonstrates an SUV max 2.8 on image 88. A lymph node anterior to the pancreatic tail on CT image 134 measuring 7 mm in short axis is noted, SUV max 3.1. There are numerous scattered radiotracer avid mesenteric and retroperitoneal lymph nodes. Examples: In the mesentery of the left abdomen measuring 1.3 cm in short axis on image 173, SUV max 12.3; left retroperitoneal periaortic space measuring 8 mm in short axis on CT image 179, SUV max 8.9. Radiotracer avid bilateral iliac chain and inguinal region lymph nodes are present. Examples: A masslike confluence of lymph nodes along the right pelvic sidewall on CT image 217 measures 6.6 x 3.3 cm, SUV max 18.0; a left inguinal lymph node measures 1.7 cm in short axis on CT image 222, SUV max 20.7. Skeleton: Severe bilateral glenohumeral joint space narrowing and osteophyte formation is noted. There is evidence of extensive fluid in the subacromial subdeltoid and subcoracoid bursal regions, [id number] associated with elevated uptake, likely inflammatory.The bones appear demineralized. Degenerative changes in the spine are present. Small rounded in ovoid sclerotic densities in the femoral heads and acetabula are noted likely related to benign bone islands. Additionally, non radiotracer avid serpiginous regions of sclerotic density in the right femoral head are noted similar to the prior CT. Anterior metallic fusion in the cervical spine is noted from C5 through C7. Soft tissues: A focus of uptake in the medial dorsal paraspinous musculature at the midthoracic spine on PET image 82 on the left is likely physiologic, SUV max 4.6 without a well-defined correlating lesion on the CT images. Asymmetric right pterygoid muscle uptake on image 15 is likely physiologic, without a correlating lesion on the CT images. METRICS: Mediastinal blood pool: SUV max 2.5, SUV mean 2.2 Liver uptake: SUV max 3.3, SUV mean 2.6 PET/PET skull to thigh INIT [id number] IMPRESSION: 1. A previously suspected mass at the anastomotic staple line involving the right colon is not definitively identified on the current examination, with no abnormal uptake in this location. 2. Radiotracer avid lymphadenopathy in the abdomen and pelvis is concerning for malignancy. 3. A radiotracer avid cluster of probable lymph nodes in the portacaval region is noted adjacent to the pancreatic head concerning for malignancy. An exophytic mass arising from the pancreas is less likely. 4. A nodule or lymph node in the region of the right parotid gland demonstrates elevated uptake, which can be related to benign or malignant etiologies. 5. Low-level uptake within bilateral hilar and mediastinal lymph nodes is noted. This low-level uptake is likely infectious or inflammatory in nature although a malignant etiology cannot be entirely excluded. 6. Extensive appearing degenerative changes of both shoulders with probable inflammatory elevated uptake associated with prominent subcoracoid and subacromial subdeltoid bursitis. 7. 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 8. Additional nonurgent findings as detailed above.
== END 2025-05-13 16:37 | disposition home or self-care (01) ==
LOC: RAD 16:36
PROVIDERS: PCP Family Medicine; Visit Provider Emergency Medicine
DX: C18.0 Malignant neoplasm of cecum (principal); R19.00 Intra-abdominal and pelvic swelling, mass and lump, unspecified site; R59.1 Generalized enlarged lymph nodes; K80.20 Calculus of gallbladder without cholecystitis without obstruction; K86.9 Disease of pancreas, unspecified; R59.0 Localized enlarged lymph nodes; M25.712 Osteophyte, left shoulder; M25.711 Osteophyte, right shoulder; M25.812 Other specified joint disorders, left shoulder; M25.811 Other specified joint disorders, right shoulder; G31.89 Other specified degenerative diseases of nervous system; M81.0 Age-related osteoporosis without current pathological fracture; M89.8X5 Other specified disorders of bone, thigh; M43.22 Fusion of spine, cervical region
CPT/HCPCS: 78815; A9552

== ENCOUNTER 2025-05-18 09:15 | Oncology outpatient (recurring) (ONCR) | payer MEDICARE, SELFPAY ==
--- NOTE | 2025-05-17 13:01 | US_ITS ---
WS: [id number] ULTRASOUND GUIDED BIOPSY LEFT INGUINAL LYMPH NODE. HISTORY: Patient is PET/CT positive inguinal lymph nodes. Targeted lymph node in the LEFT inguinal region is due to its appearance on PET/CT and it is not surrounded by vessels. The RIGHT groin mass was not as intensely positive on PET/CT therefore not targeted for biopsy. History of colon cancer. Procedure, risks, and complications are explained to the patient. Consent was obtained. Skin is cleansed with ChloraPrep and anesthetized with 1% buffered lidocaine. Multiple core biopsies were performed with 18 and 20-gauge needles. Specimen is placed in both formalin and RPMI. No complications. US/US biopsy [id number] IMPRESSION: 1. Uncomplicated PET/CT positive lymph node in the LEFT inguinal region. Speci men from the biopsy placed in RPMI and also formalin.
[2025-05-18 09:36] LABS: Hematocrit 40.7 % (37-53); Hemoglobin 13.30 g/dL (11.27-16.99); Mean Corpuscular HGB Conc 32.7 g/dL (30-55); Mean Corpuscular Hemoglobin 28.7 pg (27-33); Mean Corpuscular Volume 87.9 fl (82-101); Nucleated Red Blood Cells % 0 %; Platelet Count 315 10^3/cmm (157-399); Red Blood Count 4.63 10^6/uL (3.85-5.65); White Blood Count 6.77 10^3/uL (3.29-11.43)
[2025-05-18 09:51] LABS: Alanine Aminotransferase 9 U/L (0-41); Albumin Level 3.9 g/dL (3.5-5.2); Alkaline Phosphatase 100 U/L (40-130); Anion Gap 14.1 (5-19); Aspartate Amino Transferase 26 U/L (0-40); Blood Urea Nitrogen 14 mg/dL (8-23); Calcium 9.0 mg/dL (8.5-10.5); Carbon Dioxide 27 mmol/L (22-29); Chloride 100 mmol/L (98-107); Creatinine Clr Calc Pharmacy 82.2111; Ferritin 67 ng/mL (30-400); Globulin 3.5 g/dL (1.3-4.6); Glucose 118 mg/dL (65-115); Iron 41 ug/dL (59-158); Osmolality Calculated 286 mOsm/kg (285-295); Potassium 4.1 mmol/L (3.5-5.1); Sodium 137 mmol/L (136-145); Total Iron Binding Capacity 286 mcg/dl; Total Protein 7.4 g/dL (6.6-8.7); Unsaturated Iron Binding 245 ug/dL (112-347)
[2025-05-18 11:54] LABS: Lymphoma Profile (BBPL) See Report
[2025-05-18 16:22] LABS: Carcinoembryonic Antigen 16.6 ng/mL (0.0-4.7)
== END 2025-05-24 23:59 | disposition home or self-care (01) ==
PROVIDERS: Internal Medicine; PCP Family Medicine; Visit Provider Internal Medicine
DX: Z85.09 Personal history of malignant neoplasm of other digestive organs; F17.210 Nicotine dependence, cigarettes, uncomplicated; R59.0 Localized enlarged lymph nodes; Z53.9 Procedure and treatment not carried out, unspecified reason
CPT/HCPCS: 36415; 76942; 80053; 82378; 82728; 82746; 83540; 83550; 83615; 85025; 88184; 88185; 88305; 88342; 99214

== ENCOUNTER 2025-06-01 05:51 | Day surgery (SDC) | payer MEDICARE, SELFPAY ==
[2025-06-01] VITALS (8 sets, daily range): BP systolic 108–136; BP diastolic 51–63; PULSE 62–79; RESP 10–18; TEMP 36.7–36.9; O2SAT 94–99; BMI 26.2
--- NOTE | 2025-06-01 06:01 | SC_ITS ---
WS: [id number] C-arm fluoroscopy for right infusion catheter insertion, 06/01/2025 Clinical Data: Port-A-Cath insertion Comparison: Portable chest, 05/18/2023 Findings: Dr. Rahman inserted a right internal jugular venous catheter to end in the superior vena cava. SC/C-arm FL for CVA [id number] Impression: Right infusion catheter insertion.
--- NOTE | 2025-06-01 06:28 | ANES.PREANE2 ---
Pre-Anesthetic Assessment Height/Weight: Height 5 ft 9 in Weight 178 lb Temp Pulse Resp BP Pulse Ox O2 Del Method 98.0 F 79 17 136/63 96 Room Air 06/01/25 06:14 06/01/25 06:14 06/01/25 06:14 06/01/25 06:14 06/01/25 06:14 06/01/25 06:14 Preop Diagnosis: Adenocarcinoma of the pancreas Operation Date: 06/01/25 07:00 Proposed Procedures p Port a Cath Insertion 56538 Z95.828 C25.0(Not Applicable) - Nic Rahman MD Was Beta Brooks taken within 24 hours: N/A Was Clonidine taken within 24 hours: N/A Last intake: Intake Last Liquid Date 05/31/25 Last Liquid Time 22:00 Last Solid Date 05/31/25 Last Solid Time 17:30 Social Tobacco and No alcohol Exam alert, oriented x 3, clear to auscultation bilaterally and regular rate & rhythm Airway Submandibular: within normal limits Cervical ROM: Other (Limited neck extension) Mallampati: Class III Comments: Comments: Edentulous Anesthetic Plan ASA status: 4 Anesthesia: MAC Other: No prior issues with anesthesia NPO since yesterday evening History of CAD and hypertension. On lisinopril Patient has adenocarcinoma of the pancreas with metastatic colon cancer GERD Anxiety/depression as well as neuropathy in his hands Recent labs reviewed from 05/14/2025 and acceptable for procedure today EKG sinus rhythm Plan for MAC anesthesia with local view surgeon Medications/Allergies Home Medications ?Medication ?Instructions ?Recorded ?Confirmed ?Last Taken ?Type atorvastatin 10 mg tablet 10 mg PO BEDTIME cholesterol #90 06/04/24 05/26/25 05/16/25 Rx tabs cane #1 ea 08/10/24 05/26/25 09/06/24 Rx cane #1 ea 08/10/24 05/26/25 09/06/24 Rx gabapentin 300 mg capsule 300 mg PO BID chronic pain #60 caps 01/15/25 05/26/25 05/17/25 Rx nicotine See Rx Instructions transdermal 02/07/25 05/26/25 Unknown Rx 21mg/24hr-14mg/24hr-7mg/24hr daily .COMPLEX #56 patches transderm patches,sequentl zolpidem 10 mg tablet (Ambien) 10 mg PO .qpm PRN insomnia #30 tabs 03/23/25 05/26/25 Unknown Rx ondansetron HCl 8 mg tablet 8 mg PO Q8H PRN nausea and 05/03/25 05/26/25 Unknown Rx vomiting #90 tabs oxycodone 10 mg tablet 10 mg PO Q6H PRN pain 30 days #120 05/03/25 05/26/25 Unknown Rx tabs Admit to [facility] #1 ea 05/09/25 05/26/25 Unknown Rx diazepam 10 mg tablet (Valium) 10 mg PO .qpm PRN sleep #30 tabs 05/10/25 05/26/25 Unknown Rx lisinopril 20 mg tablet 20 mg PO DAILY 05/16/25 05/26/25 05/17/25 History sertraline 25 mg tablet 25 mg PO DAILY 05/16/25 05/26/25 05/17/25 History bisacodyl 10 mg rectal suppository 10 mg PA DAILY PRN Constipation 05/17/25 05/26/25 Unknown History (Dulcolax (bisacodyl)) magnesium hydroxide 400 mg/5 mL 400 mg PO DAILY PRN Constipation 05/17/25 05/26/25 Unknown History oral suspension (Milk of Magnesia) oxycodone 10 mg tablet,crush 10 mg PO Q12H 30 days #60 tabs 05/26/25 05/26/25 Unknown Rx resistant,extended release 12 hr (OxyContin) diphenoxylate-atropine 2.5 2 tab PO QID PRN diarrhea #60 tabs 05/27/25 Unknown Rx mg-0.025 mg tablet (Lomotil) ondansetron HCl 4 mg tablet 4 mg PO Q6H PRN nausea and 05/27/25 Unknown Rx vomiting #30 tabs prochlorperazine maleate 10 mg 10 mg PO Q4H PRN mild nausea #30 05/27/25 Unknown Rx tablet (Compazine) tabs Allergies Allergy/AdvReac Type Severity Reaction Status Date / Time No Known Allergies Allergy Verified 06/01/25 06:29 Current Medications Generic Name Dose Route Start Last Admin Trade Name Freq PRN Reason Stop Dose Admin Sodium Chloride 1,000 mls @ 30 mls/hr 06/01/25 06:15 06/01/25 06:25 Sodium Chloride 0.9% IV 06/02/25 06:14 30 mls/hr .Q24H JANEY Administration PFSH Anesthesia Medical History Screening for lung cancer LDCT 7.3.25, f/u 1 yr Nicotine dependence, cigarettes, with other nicotine-induced disorders Lumbar stenosis with neurogenic claudication referred to neurosurgeon but he canceled appt--doesn't want surgery Anxiety Atrophy of muscle of right lower leg due to lumbar problems Encounter for chronic pain management hydrocodone for chronic back pain; legacy patient inherited Adenocarcinoma of cecum had hemicolectomy; no radiation; took chemo X 6 months; no longer sees oncologist; sees DR. Dey--surgeon; now 9.--CT shows probable mets Lumbar spinal stenosis Back pain of lumbar region with sciatica sciatica on right Chronic GERD Depression citalopram, duloxetine, wellbutrin, mirtazipine and abilify did not help Pain involving joints of fingers of both hands Hepatomegaly Insomnia tried doxepin, mirtazipine, abilify, zolpidem Intractable neuropathic pain of hand Hx of migraine headaches Hx of herpes zoster Hx of irritable bowel syndrome Erectile dysfunction CAD (coronary artery disease) hx of cardiac cath that showed blockage; no stents Dyslipidemia HTN (hypertension) Surgical History Hx of colonoscopy 1--normal; f/u 3 yrs; DR. Dey Hx of cardiac cath cardiac cath by DR. Song in past--was told he has blockage--no stents History of right hemicolectomy (05/18/23) Hx of arthroscopy of right knee Hx of carpal tunnel repair bilaterally--had it done twice Hx of appendectomy Hx of discectomy cervical Family History Mother Diabetes mellitus, type 2 Other Diabetes Social History Smoking and tobacco/nicotine status: current every day tobacco/nicotine user cigarettes Packs smoked per day: 0.5 Years cigarettes smoked: 50 Alcohol intake: never Substance/Drug Use: never Household members: none Marital status: Number of children: 4 Highest education level completed: 7th Grade Current occupational status: disabled 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
--- NOTE | 2025-06-01 07:02 | W.PM.OPSUD ---
Surgery/Procedure H&P Update DATE OF PROCEDURE: June 01, 2025 DATE H&P PERFORMED: 05/26/25 H&P UPDATE INFORMATION: I have reviewed H&P completed within last 30 days, I have examined patient prior to procedure, No changes to prior documentation and Risks and benefits of the procedure reviewed PREOP DIAGNOSIS: Adenocarcinoma of the pancreas PLANNED PROCEDURE: Operation Date: 06/01/25 07:00 Proposed Procedures p Port a Cath Insertion 89243 Z95.828 C25.0(Not Applicable) - Nic Rahman MD
[2025-06-01] MEDS: ceFAZolin 2,000 mg SDV 2000 MG IVP (07:05)
[2025-06-01] MEDS: lidocaine-epi 1% 20 mL INJ 10 ML INJECTION (07:26)
[2025-06-01] MEDS: heparin, porcine 1,000 unit/mL INJ 10 mL 6000 UNIT INTRACATH (07:27)
[2025-06-01] MEDS: BUPivacaine 0.25% INJ 10 mL INJECTION (07:28)
--- NOTE | 2025-06-01 07:30 | P.OP_ITS ---
Operative Report Date of procedure: June 01, 2025 Pre-op diagnosis: Pancreatic cancer Post-op diagnosis: same Post-op findings: Tip of catheter at atriocaval junction confirmed with intraoperative fluoroscopy. Procedure done: Port-A-Cath insertion Implants: Port-A-Cath Specimens removed/disposition: N/A Pathology: none sent Surgeon: Nic Rahman MD Life Enrichment Director: N/A Anesthesia: MAC Estimated blood loss (mL): 10 Complications: N/A Findings: Tip of catheter at atriocaval junction confirmed with intraoperative fluoroscopy Condition: stable Disposition: same day Brief History: 69-year-old male with history of pancreatic cancer. Needs port for chemotherapy. Discussed risk and benefits and patient agreed to proceed with Port-A-Cath insertion. Procedure: Patient was brought into the operating room and a timeout was carried out. Procedure was done under MAC. Patient was placed supine with the arms tucked and in Trendelenburg. Patient was prepped and draped in the usual sterile fashion. Using ultrasound guidance the right internal jugular vein was accessed. A guidewire was then placed down to the atriocaval junction using fluoroscopy. The finder needle was removed and the guidewire was secured. I then turned my attention to creating a pocket over the right chest. Make sure to locally infiltrated using plain lidocaine and bupivacaine at the site of the pocket and throughout the tunnel site. I confirmed adequate hemostasis at the pocket. I then proceeded to place the port that was already preassembled and flushed with heparinized saline and the chest pocket. I tunneled the catheter from the chest to the neck at the site where I accessed the internal jugular vein. I measured and adjusted the length of the catheter so it would reach the atrial caval junction. At this point, I used a dilator to dilate the tract into the internal jugular vein using fluoroscopy. I removed the guidewire and proceeded to thread the central venous catheter through the introducer. In the process, I removed the sheath as a completely pushed the catheter into the internal jugular vein. I then confirmed adequate placement of the catheter by performing intraoperative interpretation of fluoroscopy. The tip of the catheter was confirmed to be placed in the atriocaval junction. There were no kinks noted throughout the trajectory of the catheter. I then proceeded to test the port and was satisfied with its functionality. I proceeded to flushed the catheter without any issues. I then hep-locked the port. Skin was closed using deep dermal 3-0 Vicryl, subcuticular 4-0 Monocryl, and Dermabond. Patient was then transferred to PACU without any complications.
[2025-06-01] MEDS: oxyCODONE 5 mg IR Tab/Cap 10 MG PO (08:02)
--- NOTE | 2025-06-01 08:30 | ANE.PACU2 ---
Inpatient post-anesthesia follow up: Airway intact: Yes Vital signs: Temperature 98.4 F Pulse Rate 62 Respiratory Rate 16 Blood Pressure 128/51 Pulse Oximetry 96 Oxygen Delivery Me thod Room Air Oxygen Flow Rate Fraction of Inspir ed Oxygen Hydration adequate: Yes Nausea and vomiting: No Pain level: 1 Mental status: Baseline
== END 2025-06-01 08:30 | disposition home or self-care (01) ==
PROVIDERS: PCP Family Medicine; Visit Provider Student in an Organized Health Care Education/Training Program
PROC: (CPT 36561; principal; 2025-06-01 07:00)
DX: C25.8 Malignant neoplasm of overlapping sites of pancreas (principal); C18.0 Malignant neoplasm of cecum; I25.10 Atherosclerotic heart disease of native coronary artery without angina pectoris; I10 Essential (primary) hypertension; K21.9 Gastro-esophageal reflux disease without esophagitis; F41.8 Other specified anxiety disorders; E78.5 Hyperlipidemia, unspecified; F41.9 Anxiety disorder, unspecified; R45.4 Irritability and anger; F17.210 Nicotine dependence, cigarettes, uncomplicated; Z79.891 Long term (current) use of opiate analgesic; Z95.828 Presence of other vascular implants and grafts; Z71.6 Tobacco abuse counseling; Z51.11 Encounter for antineoplastic chemotherapy; C25.0 Malignant neoplasm of head of pancreas; Z79.52 Long term (current) use of systemic steroids; Z79.631 Long term (current) use of antimetabolite agent; Z79.899 Other long term (current) drug therapy
CPT/HCPCS: 36561; 76000; 77001; 80053; 85025; 86301; 96367; 96375; 96413; 96415; 96416; 96417; 99215; C1788; J0461; J0640; J0690; J1100; J1644; J2250; J2371; J2469; J2704; J3010; J3490; J7030; J7040; J7050; J7060; J9190; J9205; J9263; J9999

== ENCOUNTER 2025-06-17 10:30 | Oncology outpatient (recurring) (ONCR) | payer MEDICARE, SELFPAY ==
[2025-06-01 09:04] LABS: Hematocrit 39.7 % (37-53); Hemoglobin 12.60 g/dL (11.27-16.99); Mean Corpuscular HGB Conc 31.7 g/dL (30-55); Mean Corpuscular Hemoglobin 28.6 pg (27-33); Mean Corpuscular Volume 90.2 fl (82-101); Nucleated Red Blood Cells % 0 %; Platelet Count 308 10^3/cmm (157-399); Red Blood Count 4.40 10^6/uL (3.85-5.65); White Blood Count 6.96 10^3/uL (3.29-11.43)
[2025-06-01 09:33] LABS: Alanine Aminotransferase 9 U/L (0-41); Albumin Level 3.7 g/dL (3.5-5.2); Alkaline Phosphatase 92 U/L (40-130); Anion Gap 13.3 (5-19); Aspartate Amino Transferase 14 U/L (0-40); Blood Urea Nitrogen 13 mg/dL (8-23); Calcium 8.6 mg/dL (8.5-10.5); Cancer Antigen 19 9 20.25 U/mL (0-35); Carbon Dioxide 26 mmol/L (22-29); Chloride 103 mmol/L (98-107); Creatinine Clr Calc Pharmacy 2.5230; Globulin 3.0 g/dL (1.3-4.6); Glucose 92 mg/dL (65-115); Osmolality Calculated 286 mOsm/kg (285-295); Potassium 4.3 mmol/L (3.5-5.1); Sodium 138 mmol/L (136-145); Total Protein 6.7 g/dL (6.6-8.7)
[2025-06-01 11:25] VITALS: RESP 17
[2025-06-01] MEDS: oxyCODONE 10 mg ER (12 HR) Tablet PO (11:25)
[2025-06-01] MEDS: dexamethasone 4 mg/mL INJ 5 mL 12 MG IVP (11:27)
[2025-06-01] MEDS: atropine 1 mg/mL SDV 1 mL 0.4 MG IV (11:36)
[2025-06-01 11:58] VITALS: BP 123/70; PULSE 77; RESP 17; TEMP 36.4; O2SAT 93
[2025-06-01] MEDS: SODIUM CHLORIDE 0.9% IV (12:07)
[2025-06-01] MEDS: IRINOTECAN LIPOSOMAL IV (12:07)
[2025-06-01] MEDS: DEXTROSE 5% IV (14:13)
[2025-06-01] MEDS: OXALIPLATIN IV (14:13)
[2025-06-01 15:56] VITALS: RESP 16
[2025-06-01] MEDS: oxyCODONE 5 mg IR Tab/Cap 10 MG PO (15:56)
[2025-06-01] MEDS: leucovorin 780 MG in dextrose 5% 250 ML 656 MG IV (16:30)
[2025-06-01] MEDS: fluorouraciL 4,700 MG in elastomeric pump 1 PUMP IV (17:09)
[2025-06-01 17:19] VITALS: BP 136/74; PULSE 75; RESP 17; TEMP 36.4; O2SAT 94
[2025-06-08 10:02] LABS: Hematocrit 37.1 % (37-53); Hemoglobin 12.10 g/dL (11.27-16.99); Mean Corpuscular HGB Conc 32.6 g/dL (30-55); Mean Corpuscular Hemoglobin 28.5 pg (27-33); Mean Corpuscular Volume 87.3 fl (82-101); Nucleated Red Blood Cells % 0 %; Platelet Count 272 10^3/cmm (157-399); Red Blood Count 4.25 10^6/uL (3.85-5.65); White Blood Count 5.25 10^3/uL (3.29-11.43)
[2025-06-08 10:20] LABS: Alanine Aminotransferase 7 U/L (0-41); Albumin Level 3.8 g/dL (3.5-5.2); Alkaline Phosphatase 87 U/L (40-130); Anion Gap 14.2 (5-19); Aspartate Amino Transferase 13 U/L (0-40); Blood Urea Nitrogen 20 mg/dL (8-23); Calcium 8.8 mg/dL (8.5-10.5); Carbon Dioxide 27 mmol/L (22-29); Chloride 100 mmol/L (98-107); Creatinine Clr Calc Pharmacy 93.0120; Globulin 2.7 g/dL (1.3-4.6); Glucose 94 mg/dL (65-115); Osmolality Calculated 286 mOsm/kg (285-295); Potassium 4.2 mmol/L (3.5-5.1); Sodium 137 mmol/L (136-145); Total Protein 6.5 g/dL (6.6-8.7)
[2025-06-15 07:35] LABS: Hematocrit 36.7 % (37-53); Hemoglobin 12.00 g/dL (11.27-16.99); Mean Corpuscular HGB Conc 32.7 g/dL (30-55); Mean Corpuscular Hemoglobin 28.2 pg (27-33); Mean Corpuscular Volume 86.4 fl (82-101); Nucleated Red Blood Cells % 0 %; Platelet Count 278 10^3/cmm (157-399); Red Blood Count 4.25 10^6/uL (3.85-5.65); White Blood Count 4.86 10^3/uL (3.29-11.43)
[2025-06-15 07:59] LABS: Alanine Aminotransferase 9 U/L (0-41); Albumin Level 3.7 g/dL (3.5-5.2); Alkaline Phosphatase 89 U/L (40-130); Anion Gap 15.0 (5-19); Aspartate Amino Transferase 13 U/L (0-40); Blood Urea Nitrogen 13 mg/dL (8-23); Calcium 8.8 mg/dL (8.5-10.5); Carbon Dioxide 25 mmol/L (22-29); Chloride 102 mmol/L (98-107); Creatinine Clr Calc Pharmacy 92.9410; Globulin 2.8 g/dL (1.3-4.6); Glucose 91 mg/dL (65-115); Osmolality Calculated 286 mOsm/kg (285-295); Potassium 4.0 mmol/L (3.5-5.1); Sodium 138 mmol/L (136-145); Total Protein 6.5 g/dL (6.6-8.7)
[2025-06-15] MEDS: dexamethasone 4 mg/mL INJ 5 mL 12 MG IVP (09:18)
[2025-06-15] MEDS: atropine 1 mg/mL SDV 1 mL 0.4 MG IV (09:47)
[2025-06-15] MEDS: SODIUM CHLORIDE 0.9% IV (10:17)
[2025-06-15] MEDS: IRINOTECAN LIPOSOMAL IV (10:17)
[2025-06-15 10:39] VITALS: RESP 16; O2SAT 100
[2025-06-15] MEDS: oxyCODONE 5 mg IR Tab/Cap 10 MG PO ×2 (10:39→14:40)
[2025-06-15] MEDS: OXALIPLATIN IV (12:13)
[2025-06-15] MEDS: DEXTROSE 5% IV (12:13)
[2025-06-15] MEDS: leucovorin 780 MG in dextrose 5% 250 ML 656 MG IV (12:14)
[2025-06-15 14:40] VITALS: RESP 16; O2SAT 94
[2025-06-15] MEDS: fluorouraciL 4,700 MG in elastomeric pump 1 PUMP IV (15:35)
[2025-06-15 15:38] VITALS: BP 132/84; PULSE 78; RESP 17; TEMP 36.4; O2SAT 95
== END 2025-06-17 23:59 | disposition home or self-care (01) ==
PROVIDERS: Nurse Practitioner Family; PCP Family Medicine; Visit Provider Internal Medicine
DX: Z45.1 Encounter for adjustment and management of infusion pump; Z95.828 Presence of other vascular implants and grafts; Z53.9 Procedure and treatment not carried out, unspecified reason
CPT/HCPCS: 36591; 80053; 85025; 86301; 96367; 96368; 96375; 96413; 96415; 96416; 96417; 96523; 99204; 99214; 99215; J0461; J0640; J1100; J2469; J7040; J7050; J7060; J9190; J9205; J9263; J9999

== ENCOUNTER → 2025-06-23 09:36 | Outpatient (BNVA) | payer MEDICARE, SELFPAY | PROVIDERS: PCP Family Medicine; Visit Provider Student in an Organized Health Care Education/Training Program | DX: C25.0 Malignant neoplasm of head of pancreas (principal); Z98.890 Other specified postprocedural states | CPT/HCPCS: 99024 ==

== ENCOUNTER 2025-07-13 07:44 | Oncology outpatient (recurring) (ONCR) | payer MEDICARE, SELFPAY ==
[2025-06-29 09:25] LABS: Hematocrit 39.7 % (37-53); Hemoglobin 12.60 g/dL (11.27-16.99); Mean Corpuscular HGB Conc 31.7 g/dL (30-55); Mean Corpuscular Hemoglobin 28.2 pg (27-33); Mean Corpuscular Volume 88.8 fl (82-101); Nucleated Red Blood Cells % 0 %; Platelet Count 257 10^3/cmm (157-399); Red Blood Count 4.47 10^6/uL (3.85-5.65); White Blood Count 5.27 10^3/uL (3.29-11.43)
[2025-06-29 09:59] LABS: Carcinoembryonic Antigen 10.8 ng/mL (0.0-4.7)
[2025-06-29 10:10] LABS: Alanine Aminotransferase 13 U/L (0-41); Albumin Level 3.7 g/dL (3.5-5.2); Alkaline Phosphatase 117 U/L (40-130); Anion Gap 15.3 (5-19); Aspartate Amino Transferase 16 U/L (0-40); Blood Urea Nitrogen 13 mg/dL (8-23); Calcium 9.1 mg/dL (8.5-10.5); Carbon Dioxide 25 mmol/L (22-29); Chloride 104 mmol/L (98-107); Creatinine Clr Calc Pharmacy 92.0340; Globulin 3.0 g/dL (1.3-4.6); Glucose 101 mg/dL (65-115); Osmolality Calculated 290 mOsm/kg (285-295); Potassium 4.3 mmol/L (3.5-5.1); Sodium 140 mmol/L (136-145); Total Protein 6.7 g/dL (6.6-8.7)
[2025-06-29] MEDS: dexamethasone 4 mg/mL INJ 5 mL 12 MG IVP (12:14)
[2025-06-29] MEDS: atropine 1 mg/mL SDV 1 mL 0.4 MG IV (13:34)
[2025-06-29] MEDS: leucovorin 780 MG in dextrose 5% 250 ML 656 MG IV (17:57)
[2025-06-29 18:30] VITALS: BP 151/74; PULSE 71; TEMP 36.8; O2SAT 93
[2025-06-29] MEDS: fluorouraciL 4,650 MG in elastomeric pump 1 PUMP IV (18:34)
[2025-07-01] MEDS: ondansetron 2 mg/ML SDV 2 mL 8 MG IVP (10:41)
[2025-07-01 11:59] VITALS: BP 157/79; PULSE 66; RESP 16; TEMP 36.2; O2SAT 98
[2025-07-13 08:02] LABS: Hematocrit 38.9 % (37-53); Hemoglobin 12.50 g/dL (11.27-16.99); Mean Corpuscular HGB Conc 32.1 g/dL (30-55); Mean Corpuscular Hemoglobin 28.2 pg (27-33); Mean Corpuscular Volume 87.6 fl (82-101); Nucleated Red Blood Cells % 0 %; Platelet Count 202 10^3/cmm (157-399); Red Blood Count 4.44 10^6/uL (3.85-5.65); White Blood Count 4.20 10^3/uL (3.29-11.43)
[2025-07-13 08:19] LABS: Alanine Aminotransferase 111 U/L (0-41); Albumin Level 3.8 g/dL (3.5-5.2); Alkaline Phosphatase 329 U/L (40-130); Anion Gap 12.2 (5-19); Aspartate Amino Transferase 66 U/L (0-40); Blood Urea Nitrogen 10 mg/dL (8-23); Calcium 9.2 mg/dL (8.5-10.5); Carbon Dioxide 28 mmol/L (22-29); Chloride 104 mmol/L (98-107); Globulin 2.9 g/dL (1.3-4.6); Glucose 108 mg/dL (65-115); Osmolality Calculated 290 mOsm/kg (285-295); Potassium 4.2 mmol/L (3.5-5.1); Sodium 140 mmol/L (136-145); Total Protein 6.7 g/dL (6.6-8.7)
[2025-07-13] MEDS: dexamethasone 4 mg/mL INJ 5 mL 12 MG IVP (09:29)
[2025-07-13] MEDS: atropine 1 mg/mL SDV 1 mL 0.4 MG IV (11:07)
[2025-07-13] MEDS: leucovorin 780 MG in dextrose 5% 250 ML 656 MG IV (15:21)
[2025-07-13] MEDS: fluorouraciL 4,650 MG in elastomeric pump 1 PUMP IV (16:02)
[2025-07-13 16:10] VITALS: BP 132/76; PULSE 62; RESP 18; TEMP 36.4; O2SAT 95
== END 2025-07-13 23:59 | disposition home or self-care (01) ==
PROVIDERS: Nurse Practitioner; Nurse Practitioner Family; PCP Family Medicine; Visit Provider Internal Medicine
DX: Z53.9 Procedure and treatment not carried out, unspecified reason; Z51.11 Encounter for antineoplastic chemotherapy; C25.0 Malignant neoplasm of head of pancreas; C18.0 Malignant neoplasm of cecum; F17.210 Nicotine dependence, cigarettes, uncomplicated; Z79.899 Other long term (current) drug therapy; T45.1X5A Adverse effect of antineoplastic and immunosuppressive drugs, initial encounter; R11.0 Nausea; Z95.828 Presence of other vascular implants and grafts
CPT/HCPCS: 80053; 82378; 85025; 96360; 96367; 96375; 96376; 96413; 96415; 96416; 96417; 99215; J0461; J0640; J1100; J1453; J2405; J2469; J3490; J7030; J7040; J7050; J7060; J9190; J9205; J9263

== ENCOUNTER 2025-07-20 08:30 | Oncology outpatient (recurring) (ONCR) | payer MEDICARE, SELFPAY ==
[2025-07-20 08:31] LABS: Hematocrit 38.8 % (37-53); Hemoglobin 12.50 g/dL (11.27-16.99); Mean Corpuscular HGB Conc 32.2 g/dL (30-55); Mean Corpuscular Hemoglobin 28.2 pg (27-33); Mean Corpuscular Volume 87.4 fl (82-101); Nucleated Red Blood Cells % 0 %; Platelet Count 194 10^3/cmm (157-399); Red Blood Count 4.44 10^6/uL (3.85-5.65); White Blood Count 4.24 10^3/uL (3.29-11.43)
[2025-07-20 08:57] LABS: Alanine Aminotransferase 205 U/L (0-41); Albumin Level 3.7 g/dL (3.5-5.2); Alkaline Phosphatase 328 U/L (40-130); Anion Gap 14.6 (5-19); Aspartate Amino Transferase 153 U/L (0-40); Blood Urea Nitrogen 17 mg/dL (8-23); Calcium 10.2 mg/dL (8.5-10.5); Carbon Dioxide 26 mmol/L (22-29); Chloride 103 mmol/L (98-107); Globulin 3.0 g/dL (1.3-4.6); Glucose 111 mg/dL (65-115); Osmolality Calculated 290 mOsm/kg (285-295); Potassium 4.6 mmol/L (3.5-5.1); Sodium 139 mmol/L (136-145); Total Protein 6.7 g/dL (6.6-8.7)
[2025-07-20] MEDS: fluconazole premix 200 MG/100 ML PREMIX 100 MG IV (11:03)
[2025-07-20] MEDS: HYDROmorphone 0.5 MG/0.5 ML INJ 2 MG IVP (11:07)
[2025-07-20] MEDS: HYDROmorphone 0.5 MG/0.5 ML INJ 3 MG IVP (12:08)
[2025-07-20 12:23] VITALS: BP 119/73; PULSE 65; RESP 17; TEMP 36.4; O2SAT 99
== END 2025-07-24 23:59 | disposition home or self-care (01) ==
PROVIDERS: Nurse Practitioner; PCP Family Medicine; Visit Provider Internal Medicine
DX: Z53.9 Procedure and treatment not carried out, unspecified reason; C78.89 Secondary malignant neoplasm of other digestive organs; Z85.038 Personal history of other malignant neoplasm of large intestine; T45.1X5A Adverse effect of antineoplastic and immunosuppressive drugs, initial encounter; Z79.899 Other long term (current) drug therapy; Z72.0 Tobacco use; R11.0 Nausea
CPT/HCPCS: 36591; 80053; 85025; 96360; 96365; 96367; 96375; 96376; 96523; 99215; J1171; J1450; J7030

== ENCOUNTER 2025-08-10 07:30 | Oncology outpatient (recurring) (ONCR) | payer MEDICARE, SELFPAY ==
[2025-07-27 07:57] LABS: Hematocrit 38.3 % (37-53); Hemoglobin 12.50 g/dL (11.27-16.99); Mean Corpuscular HGB Conc 32.6 g/dL (30-55); Mean Corpuscular Hemoglobin 28.8 pg (27-33); Mean Corpuscular Volume 88.2 fl (82-101); Nucleated Red Blood Cells % 0 %; Platelet Count 237 10^3/cmm (157-399); Red Blood Count 4.34 10^6/uL (3.85-5.65); White Blood Count 3.94 10^3/uL (3.29-11.43)
[2025-07-27 08:22] LABS: Alanine Aminotransferase 28 U/L (0-41); Albumin Level 3.5 g/dL (3.5-5.2); Alkaline Phosphatase 178 U/L (40-130); Anion Gap 12.7 (5-19); Aspartate Amino Transferase 21 U/L (0-40); Blood Urea Nitrogen 22 mg/dL (8-23); Calcium 8.7 mg/dL (8.5-10.5); Carbon Dioxide 26 mmol/L (22-29); Chloride 104 mmol/L (98-107); Globulin 3.2 g/dL (1.3-4.6); Glucose 109 mg/dL (65-115); Osmolality Calculated 290 mOsm/kg (285-295); Potassium 4.7 mmol/L (3.5-5.1); Sodium 138 mmol/L (136-145); Total Protein 6.7 g/dL (6.6-8.7)
[2025-07-27] MEDS: dexamethasone 4 mg/mL INJ 5 mL 12 MG IVP (09:46)
[2025-07-27] MEDS: atropine 1 mg/mL SDV 1 mL 0.4 MG IV (10:47)
[2025-07-27] MEDS: leucovorin 770 MG in dextrose 5% 250 ML 500 MG IV (14:58)
[2025-07-27] MEDS: fluorouraciL 4,600 MG in elastomeric pump 1 PUMP IV (15:41)
[2025-07-27 15:50] VITALS: BP 119/73; PULSE 67; RESP 17; TEMP 36.2; O2SAT 92
--- NOTE | 2025-08-03 15:09 | XRR_ITS ---
PROCEDURE INFORMATION: Exam: XR Abdomen Exam date and time: 08/03/2025 3:19 PM Age: 69 years old Clinical indication: Generalized; Prior surgery; Surgery date: 1-6 months; Surgery type: Tumor removal surgery in abdomen, port, cervical fusion; Abdominal pain in lower pelvis patient unsure of amount of time TECHNIQUE: Imaging protocol: Radiologic exam of the abdomen. Views: 2 Views. Upright and supine views. COMPARISON: PT PET skull to thigh INIT [id number] 05/13/2025 6:09 PM FINDINGS: Tubes, catheters and devices: A right-sided VAD is in good position with the catheter tip in the lower SVC. A metallic surgical plate and screws can be seen in the cervical spine. Gastrointestinal tract: Normal. No bowel dilation. Normal stool amount. Intraperitoneal space: Normal. No free air. Bones/joints: Unremarkable for age. XR/XR acute abdomen series [id number] IMPRESSION: No acute findings.
[2025-08-10] MEDS: alteplase 1 mg/mL SDV 2 mL 2 MG INTRACATH (07:30)
[2025-08-10 07:37] LABS: Hematocrit 37.0 % (37-53); Hemoglobin 11.80 g/dL (11.27-16.99); Mean Corpuscular HGB Conc 31.9 g/dL (30-55); Mean Corpuscular Hemoglobin 28.5 pg (27-33); Mean Corpuscular Volume 89.4 fl (82-101); Nucleated Red Blood Cells % 0 %; Platelet Count 146 10^3/cmm (157-399); Red Blood Count 4.14 10^6/uL (3.85-5.65); White Blood Count 4.00 10^3/uL (3.29-11.43)
[2025-08-10 07:54] LABS: Alanine Aminotransferase 15 U/L (0-41); Albumin Level 3.6 g/dL (3.5-5.2); Alkaline Phosphatase 145 U/L (40-130); Anion Gap 15.0 (5-19); Aspartate Amino Transferase 20 U/L (0-40); Blood Urea Nitrogen 16 mg/dL (8-23); Calcium 9.1 mg/dL (8.5-10.5); Carbon Dioxide 25 mmol/L (22-29); Chloride 104 mmol/L (98-107); Globulin 2.8 g/dL (1.3-4.6); Glucose 98 mg/dL (65-115); Magnesium 2.0 mg/dL (1.7-2.3); Osmolality Calculated 291 mOsm/kg (285-295); Potassium 4.0 mmol/L (3.5-5.1); Sodium 140 mmol/L (136-145); Total Protein 6.4 g/dL (6.6-8.7)
[2025-08-10 08:02] LABS: Cancer Antigen 19 9 25.39 U/mL (0-35)
[2025-08-10] MEDS: dexamethasone 4 mg/mL INJ 5 mL 12 MG IVP (09:29)
[2025-08-10] MEDS: atropine 1 mg/mL SDV 1 mL 0.4 MG IV (09:57)
[2025-08-10] MEDS: leucovorin 770 MG in dextrose 5% 250 ML 500 MG IV (14:43)
[2025-08-10 15:21] VITALS: RESP 16; O2SAT 93
[2025-08-10] MEDS: morphine 4 mg/mL SDV 1 mL 1 MG IVP (15:21)
[2025-08-10] MEDS: fluorouraciL 4,600 MG in elastomeric pump 1 PUMP IV (15:34)
== END 2025-08-10 23:59 | disposition home or self-care (01) ==
PROVIDERS: Internal Medicine Medical Oncology; Nurse Practitioner; PCP Family Medicine; Visit Provider Internal Medicine
DX: Z53.9 Procedure and treatment not carried out, unspecified reason (principal); Z51.11 Encounter for antineoplastic chemotherapy; C25.0 Malignant neoplasm of head of pancreas; Z85.038 Personal history of other malignant neoplasm of large intestine; Z90.49 Acquired absence of other specified parts of digestive tract; Z72.0 Tobacco use; R53.83 Other fatigue; D64.9 Anemia, unspecified; Z95.828 Presence of other vascular implants and grafts; G89.3 Neoplasm related pain (acute) (chronic)
CPT/HCPCS: 74022; 80053; 83735; 85025; 86301; 96365; 96367; 96375; 96411; 96413; 96415; 96416; 96417; 96523; 99213; J0461; J0640; J1100; J1453; J2270; J2469; J2997; J3490; J7040; J7050; J7060; J9190; J9205; J9263; J9999

== ENCOUNTER 2025-08-21 13:57 | Emergency (ER) | payer MEDICARE, MEDICAID, SELFPAY ==
[2025-08-21 14:00] VITALS: BP 152/99; PULSE 94; TEMP 36.6; O2SAT 98
--- NOTE | 2025-08-21 14:03 | ECG_ITS ---
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
--- NOTE | 2025-08-21 14:03 | XRR_ITS ---
PROCEDURE INFORMATION: Exam: XR Chest Exam date and time: 08/21/2025 4:08 PM Age: 69 years old Clinical indication: Other: Weakness; Prior surgery; Surgery date: 1-6 months; Surgery type: Port-a-cath TECHNIQUE: Imaging protocol: Radiologic exam of the chest. 1 image(s) are submitted. Views: 1 view. COMPARISON: CT chest abdpel w/*[id number] 08/19/2025 11:09 AM FINDINGS: Lungs: Unremarkable. No consolidation. Pleural spaces: Unremarkable. No pleural effusion. No pneumothorax. Heart/Mediastinum: Unremarkable. No cardiomegaly. Bones/joints: Unremarkable. XR/XR chest 1V portable [id number] IMPRESSION: No acute findings. Right-sided Port-A-Cath placement without pneumothorax.
--- OUTSIDE RECORDS SUMMARY | 2025-08-21 14:05 | XMS_ITS | Continuity of Care Document ---
Author Organization SHAHEEN - Lucio Bennett [facility] Adriana Parekh, [facility]) Address [address] [place] [address] Assessment No assessment recorded. Plan of Treatment Reminders Order Date Submit Date Provider Last Modified By Organization Details Last Modified Time Details Appointments None record ed. Lab None record ed. Referral None record ed. Procedures None record ed. Surgeries None record ed. Imaging None record ed. Medication Orders None record ed. Patient TargetsNo targets recorded. Patient Instructions Encounter Date Encounter Id Patient Instructions Last Modified By Organization Details Last Modified Time 07/07/2025 [id number] adjusted pain medication. Not available 07/07/2025 12:22:38 Reason for Referral None Reported. Problems Name Problem SNOMED Code Status Onset Date Resolution Date Notes Provider Name and Address Organization Details Recorded Time Depressive disorder 02078206 Active 2019 Depressio n; 0 4:13PM by Meryl Méndez LPN, Office Visit; Promoted; acuity set as *; Not Available [facility] 3 03:16:40 Appendecto my Active 2019 Appendect quynh; 0 4:13PM by Meryl Méndez LPN, Office Visit; Promoted; acuity set as *; Not Available [facility] 3 03:16:41 Benign hypertensi on 85388738 Active 2019 HTN; 0 4:13PM by Meryl Méndez LPN, Office Visit; Promoted; acuity set as *; Not Available [facility] 3 03:16:44 Coronary artery anomaly NOS Active 2019 Coronary Artery Disease; 03/2016; 0 4:13PM by Meryl Méndez LPN, Office Visit; Promoted; acuity set as *; Not Available [facility] 3 03:16:45 Irritable bowel syndrome 79091557 Active 2019 IBS; 0 4:13PM by Meryl Méndez LPN, Office Visit; Promoted; acuity set as *; Not Available [facility] 3 03:16:45 Smoker 66978522 Active 2019 Smoker; 0 4:13PM by Meryl Méndez LPN, Office Visit; Promoted; acuity set as *; Not Available [facility] 3 03:16:47 Post-disch arge follow-up 705312618 [facility] 2024 [facility] 5 12:42:30 Primary malignant neoplasm of colon 67876160 Active 2024 EMILY CHAPPELL [facility] 5 12:42:31 Essential hypertensi on 01305542 [facility] 12:42:32 Moderate recurrent major depression 37842867 Active 2024 EMILYLISETTE CHAPPELL [facility] 5 12:42:35 Primary insomnia 0876290 Active 2024 EMILY CHAPPELL [facility] 5 12:42:36 Problem Notes None recorded. Medical Equipment None Reported. Allergies Allergen ID Allergen Name Allergen Category Reaction Reaction Severity Criticality Documentation Date Start Date Code Code System Note Provider Name and Address Organization Details Recorded Time 14487 dimethyl isosorbid e Not available Not available Not available Not available 03/22/2023 53856 99 RxNorm Comme nt: Recor ded 10/26 4:13P M by Lara Locke on, MARSHA, Offic e Visit ; Promo tasha; Deirdre alva ce: *; Reaso n: Drug aller gy; ; Not Available [facility] 3 02:23:45 95102 Nubain medicatio n Not available Not available Not available 03/22/2023 7550 RxNorm Comme nt: Recor ded 10/26 4:13P M by Lara Gamas on, MENTAL HEALTH CONSULTANT, Offic e Visit ; Promo tasha; Signi fican ce: *; ; Not Available [facility] 3 02:23:45 39697 irbesarta n Not available Not available Not available Not available 03/22/2023 45708 RxNorm Comme nt: Recor ded 10/26 4:13P M by Lara Gamas on, MENTAL HEALTH CONSULTANT, Offic e Visit ; Promo tasha; Signi fican ce: *; ; Not Available [facility] 3 02:23:45 63293 trazodone medicatio n Not available Not available Not available 03/22/2023 07568 RxNorm Comme nt: Recor ded 10/26 4:13P M by Lara Gamas on, MENTAL HEALTH CONSULTANT, Offic e Visit ; Promo tasha; Signi fican ce: *; ; Not Available [facility] 3 02:23:45 06740 codeine medicatio n Not available Not available Not available 03/22/2023 2670 RxNorm Comme nt: Recor ded 10/26 4:13P M by Lara Gamas on, MENTAL HEALTH CONSULTANT, Offic e Visit ; Promo tasha; Signi fican ce: *; ; Not Available [facility] 3 02:23:45 23262 Rocephin medicatio n Not available Not available Not available 03/22/2023 9449 RxNorm Comme nt: Recor ded 10/26 4:13P M by Lara Gamas on, MENTAL HEALTH CONSULTANT, Offic e Visit ; Promo tasha; Signi fican ce: *; ; Not Available [facility] 3 02:23:45 22845 oxycodone medicatio n Not available Not available Not available 03/22/2023 7804 RxNorm Comme nt: Recor ded 10/26 4:13P M by Lara clark LPN, Offic e Visit ; Rhonda cordova; Deirdre alva ce: *; ; Not Available [facility] 3 02:23:45 Medications Name Sig Start Date Stop Date Status Note LastModified by Organization Details LastModified Time doxycycli ne hyclate 100 mg capsule take 1 capsule BY MOUTH TWICE DAILY FOR 10 DAYS 05/26 completed Not Available Not Available Not Available citalopra m 40 mg tablet TAKE 1 TABLET BY MOUTH EVERY DAY FOR DEPRESSI ON active Not Available Not Available No t Available atorvasta tin 10 mg tablet TAKE 1 TABLET BY MOUTH AT BEDTIME FOR choleste rol active Not Available Not Available No t Available ondansetr on HCl 8 mg tablet TAKE 1 TABLET BY MOUTH EVERY 8 HOURS NEEDED FOR NAUSEA AND VOMITING active Not Available Not Available No t Available lisinopri l 20 mg tablet TAKE 1 TABLET BY MOUTH EVERY DAY FOR BLOOD PRESSURE active Not Available Not Available No t Available ondansetr on HCl 4 mg tablet TAKE 1 TABLET BY MOUTH EVERY 6 HOURS NEEDED FOR NAUSEA AND VOMITING active Not Available Not Available No t Available diphenoxy late-atro pine 2.5 mg-0.025 mg tablet TAKE 2 TABLETS BY MOUTH FOUR TIMES DAILY NEEDED FOR DIARRHEA max of EIGHT tabs PER DAY UNTIL control of diarrhea active Not Available Not Available No t Available prochlorp erazine maleate 10 mg tablet TAKE 1 TABLET BY MOUTH EVERY 4 HOURS as needed for mild nausea active Not Available Not Available No t Available ondansetr on 8 mg disintegr ating tablet DISSOLVE ONE TABLET BY MOUTH EVERY 8 HOURS NEEDED FOR NAUSEA AND VOMITING active Not Available Not Available No t Available famotidin e 20 mg tablet TAKE 1 TABLET BY MOUTH TWICE DAILY FOR SIX WEEKS active Not Available Not Available No t Available temazepam 15 mg capsule take 1 capsule BY MOUTH EVERY EVENING FOR insomnia active Not Available Not Available No t Available benzonata te 100 mg capsule take 1 capsule BY MOUTH THREE TIMES DAILY NEEDED FOR cough active Not Available Not Available No t Available hydrocodo ne 7.5 mg-acetam inophen 325 mg tablet TAKE 1 TABLET BY MOUTH EVERY 6 HOURS as needed for break through pain FOR 30 DAYS active Not Available Not Available No t Available lisinopri l [address] Gill; 0; Recorded 10/27/19 20 4:16PM by Meryl Méndez LPN, Office Visit; Not Available Not Available Not Available gabapenti n 300 mg capsule TAKE 1 TABLET BY MOUTH TWICE DAILY FOR chronic pain active Not Available Not Available No t Available sertralin e 25 mg tablet TAKE 1 TABLET BY MOUTH EVERY EVENING active Not Available Not Available No t Available oxycodone 30 mg tablet Take 1 tablet twice a day by oral route for 30 days. 2024 active Not Available Not Available Not Avai lable diazepam 10 mg tablet 1 tab in the evening prn 2024 active Not Available Not Available Not Avai lable zolpidem 10 mg tablet TAKE 1 TABLET BY MOUTH EVERY EVENING NEEDED FOR insomnia active Not Available Not Available No t Available aripipraz ole 5 mg tablet TAKE 1 TABLET BY MOUTH EVERY EVENING active Not Available Not Available No t Available bupropion HCl XL 150 mg 24 hr tablet, extended release TAKE 1 TABLET BY MOUTH EVERY MORNING active Not Available Not Available No t Available duloxetin e 30 mg capsule,d elayed release take 1 capsule BY MOUTH TWICE DAILY active Not Available Not Available No t Available zolpidem ER 12.5 mg tablet,ex tended release,m ultiphase TAKE 1 TABLET BY MOUTH AT BEDTIME NEEDED FOR insomnia active Not Available Not Available No t Available aspirin daily active 0; Recorded 10/27/19 20 4:17PM by Meryl Méndez LPN, Office Visit; Not Available Not Available Not Available oxycodone 10 mg tablet Take 2 tablets every 4 hours by oral route as needed for 30 days. 2024 active Not Available Not Available Not Avai lable OxyContin 10 mg tablet,cr ush resistant ,extended release TAKE 1 TABLET BY MOUTH EVERY TWELVE HOURS FOR 30 DAYS active Not Available Not Available No t Available Xtampza ER 36 mg capsule sprinkle Take 1 capsule every 12 hours by oral route for 30 days. 2024 active Not Available Not Available Not Avai lable Xtampza ER 9 mg capsule sprinkle Take 1 capsule every 12 hours by oral route for 30 days. 2024 active Not Available Not Available Not Avai lable Xtampza ER 18 mg capsule sprinkle Take 1 capsule 3 times a day by oral route for 30 days. 2024 active Not Available Not Available Not Avai lable Vitals Date Recorded Body weight Heart rate Respiratory rate Body temperature Oxygen saturation Systolic And Diastolic Provider Name and Address Organization Details Last Updated DateTime 5 07757.4 8 g 78 /min 18 /min 97.5 [degF] 98 % 122/68 mm[Hg] EMILY [facility]APPELL [facility] 12:21:02 Social History None recorded. Functional Status None recorded. Mental Status None recorded. Family History Nothing Reported. Medical History No medical history recorded. Immunizations Vaccine Type Date Status Note Provider Nam e and Address Organization Details Recorded Time Influenza, split virus, trivalent, preservative 0 completed Not Available [facility] 03/22/2023 02:52:00 zoster live 7 completed Not Available [facility] 03/22/2023 02:52:00 COVID-19, mRNA, LNP-S, PF, 100 mcg/0.5mL dose or 50 mcg/0.25mL dose 1 completed Not Available [facility] 03/22/2023 02:52:00 Influenza, split virus, trivalent, preservative 7 completed Not Available [facility] 03/22/2023 02:52:00 Influenza, split virus, trivalent, preservative 5 completed Not Available [facility] 08/08/2025 18:05:53 pneumococcal polysaccharide PPV23 5 completed Not Available [facility] 08/08/2025 18:05:53 Influenza, split virus, trivalent, PF 6 completed Not Available [facility] 08/08/2025 18:05:53 Tdap 7 completed Not Available [facility] 08/08/2025 18:05:53 Influenza, split virus, quadrivalent, PF 7 completed Not Available [facility] 08/08/2025 18:05:53 zoster live 7 completed Not Available [facility] 08/08/2025 18:05:53 COVID-19, mRNA, LNP-S, PF, 100 mcg/0.5mL dose or 50 mcg/0.25mL dose 1 completed Not Available [facility] 08/08/2025 18:05:53 COVID-19, mRNA, LNP-S, PF, 100 mcg/0.5mL dose or 50 mcg/0.25mL dose 1 completed Not Available [facility] 08/08/2025 18:05:53 Influenza, split virus, quadrivalent, PF 3 completed Not Available [facility] 08/08/2025 18:05:53 Tdap 3 completed Not Available [facility] 08/08/2025 18:05:53 Influenza, split virus, quadrivalent, PF 3 completed Not Available [facility] 08/08/2025 18:05:53 Influenza, high-dose, trivalent, PF 4 completed Not Available [facility] 08/08/2025 18:05:53 COVID-19, mRNA, LNP-S, PF, 50 mcg/0.5 mL 4 completed Not Available [facility] 08/08/2025 18:05:53 Past Encounters Encounter ID Performer Location Encounter Start Date Encounter Closed Date Diagnosis/Indication Diagnosis SNOMED-CT Code Diagnosis ICD10 Code Diagnosis IMO Codes Diagnosis Note [id number] Mirza Tavarez DO [facility] ([facility]) [address] [place] [phone] 06/30/2025 07:15:24 07/04/2025 15:22:50 Benign hypertension 74855913 I10 Moderate r ecurrent major depression 40956715 F33.1 7353987 Depressive disorder 3548 9007 F32.A Essential hypertension 24829648 I10 81216 Primary insomnia 8442549 F51.01 57800 Primary ma lignant neoplasm of pancreas 307803790 C79.9 C25.9 [id number] Mirza Tavarez DO [facility] ([facility]) [address] [place] [address] 5 07/07/2025 10:36:56 07/12/2025 10:00:01 Primary malignant neoplasm of colon 98426091 C18.9 C79.9 56916105 Health Concerns Section Related Observation LastModified by Organization Detai ls LastModified Time None Recorded Concern Status LastModified by Organization Details LastModified Time None Recorded Payers Encounter Date Sequence Insurance Name Policy Number Policy Bernstein Covered Member ID Bernstein Member ID Guarantor Name 07/07/2025 1 MEDICARE [place]: WPS Glenn Berg [id number] Glenn Berg Notes Date Note Type Note Provider Name and Address Organization Details Recorded Time 07/07/2025 text/html Anxiety/Depressi onRepo rted by PatientHPIFor severity, patient reportsincreased anxietybut reportsdenies suicidal ideations. For context, patient reportsrecent medical event.ROS as noted in the HPI seeing oncology, worsening pain. Mirza Tavarez, DO [address] [place] [address], [phone], [facility] 07/11/2025 15:33:59
--- OUTSIDE RECORDS SUMMARY | 2025-08-21 14:05 | XMS_ITS | Continuity of Care Document ---
Author Organization SHAHEEN - Lucio Bennett [facility] Adriana Parekh, [facility]) Address [address] [place] [address] Assessment No assessment recorded. Plan of Treatment [...] Modified By Organization Details Last Modified Time 07/28/2025 [id number] Pain continues t o be uncontrolled. Will change xtampza to 18mg 2 tabs bid. [email or web address] Not available 07/28/2025 11:54:48 Reason for Referral None Reported. Problems Name Problem SNOMED Code Status Onset Date Resolution Date Notes Provider Name and Address Organization Details Recorded Time Depressive disorder 86686478 Active 2019 Depressio n; 0 4:13PM by Meryl Méndez LPN, Office Visit; Promoted; acuity set as *; Not Available [facility] 3 03:16:40 Appendecto my Active 2019 Appendect quynh; 0 4:13PM by Meryl Méndez LPN, Office Visit; Promoted; acuity set as *; Not Available [facility] 3 03:16:41 Benign hypertensi on 65432315 Active 2019 HTN; 0 4:13PM by Meryl Méndez LPN, Office Visit; Promoted; acuity set as *; Not Available [facility] 3 03:16:44 Coronary artery anomaly NOS Active 2019 Coronary Artery Disease; 03/2016; 0 4:13PM by Meryl Méndez LPN, Office Visit; Promoted; acuity set as *; Not Available [facility] 3 03:16:45 Irritable bowel syndrome 97162059 Active 2019 IBS; 0 4:13PM by Meryl Méndez LPN, Office Visit; Promoted; acuity set as *; Not Available [facility] 3 03:16:45 Smoker 30647795 Active 2019 Smoker; 0 4:13PM by Meryl Méndez LPN, Office Visit; Promoted; acuity set as *; Not Available [facility] 3 03:16:47 Post-disch arge follow-up 819170818 Active 2024 EMILYLISETTE CHAPPELL [facility] 5 12:42:30 Primary malignant neoplasm of colon 56006435 Active 2024 EMILY CHAPPELL [facility] 5 12:42:31 Essential hypertensi on 99862359 [facility] 5 12:42:32 Moderate recurrent major depression 82006736 Active [facility] 5 12:42:35 Primary insomnia 0670520 Active 2024 EMILYLISETTE CHAPPELL [facility] 5 12:42:36 Problem Notes None recorded. Medical Equipment None Reported. Allergies Allergen ID Allergen Name Allergen Category Reaction Reaction Severity Criticality Documentation Date Start Date Code Code System Note Provider Name and Address Organization Details Recorded Time 35816 dimethyl isosorbid e Not available Not available Not available Not available 03/22/2023 70670 99 RxNorm Comme nt: Recor ded 10/26 4:13P M by Lara Locke on, MARSHA, Offic e Visit ; Promo tasha; Signi fican ce: *; Reaso n: Drug aller gy; ; Not Available [facility] 3 02:23:45 77813 Nubain medicatio n Not available Not available Not available 03/22/2023 7550 RxNorm Comme nt: Recor ded 10/26 4:13P M by Lara Gamas on, EMBRYOLOGY PROFESSOR, Offic e Visit ; Promo tasha; Signi fican ce: *; ; Not Available [facility] 3 02:23:45 24103 irbesarta n Not available Not available Not available Not available 03/22/2023 88831 RxNorm Comme nt: Recor ded 10/26 4:13P M by Lara Gamas on, EMBRYOLOGY PROFESSOR, Offic e Visit ; Promo tasha; Signi fican ce: *; ; Not Available [facility] 3 02:23:45 60856 trazodone medicatio n Not available Not available Not available 03/22/2023 51807 RxNorm Comme nt: Recor ded 10/26 4:13P M by Lara Gamas on, EMBRYOLOGY PROFESSOR, Offic e Visit ; Promo tasha; Signi fican ce: *; ; Not Available [facility] 3 02:23:45 61848 codeine medicatio n Not available Not available Not available 03/22/2023 2670 RxNorm Comme nt: Recor ded 10/26 4:13P M by Lara Gamas on, EMBRYOLOGY PROFESSOR, Offic e Visit ; Promo tasha; Signi fican ce: *; ; Not Available [facility] 3 02:23:45 19702 Rocephin medicatio n Not available Not available Not available 03/22/2023 9449 RxNorm Comme nt: Recor ded 10/26 4:13P M by Lara Gamas on, EMBRYOLOGY PROFESSOR, Offic e Visit ; Promo tasha; Signi fican ce: *; ; Not Available [facility] 3 02:23:45 74098 oxycodone medicatio n Not available Not available Not available 03/22/2023 7804 RxNorm Comme nt: Recor ded 10/26 4:13P M by Lara Locke on, EMBRYOLOGY PROFESSOR, Offic e Visit ; Rhonda cordova; Deirdre alva ce: *; ; Not Available [facility] 3 02:23:45 Medications Name Sig Start [...] Available aspirin daily active 0; Recorded 10/27/19 4:17PM by Meryl Méndez LPN, Office Visit; [...] Address Organization Details Last Updated DateTime 5 84806.0 7 g 82 /min 20 /min 98.8 [degF] 97 % 120/70 mm[Hg] [facility] 5 11:52:46 Date Recorded Body weight Heart rate Respiratory rate Body temperature Oxygen saturation Systolic And Diastolic Provider Name and Address Organization Details Last Updated DateTime 5 54989.0 7 g 81 /min 18 /min 97.6 [degF] 95 % 124/70 mm[Hg] [facility] 5 13:00:37 Social History None recorded. Functional Status None recorded. Mental Status None recorded. Family History Nothing Reported. Medical History No medical history recorded. Immunizations Vaccine Type Date Status Note Provider Nam e and Address Organization Details Recorded Time Influenza, split virus, trivalent, preservative 0 completed Not Available [facility] 03/22/2023 02:52:00 zoster live 7 completed Not Available [facility] 03/22/2023 02:52:00 COVID-19, mRNA, LNP-S, PF, 100 mcg/0.5mL dose or 50 mcg/0.25mL dose 1 completed Not Available [facility] 03/22/2023 02:52:00 Influenza, split virus, trivalent, preservative 7 completed Not Available [facility] 03/22/2023 02:52:00 Influenza, split virus, trivalent, preservative 5 completed Not Available [facility] 08/08/2025 18:05:53 pneumococcal polysaccharide PPV23 5 completed Not Available [facility] 08/08/2025 18:05:53 Influenza, split virus, trivalent, PF 6 completed Not Available [facility] 08/08/2025 18:05:53 Tdap 7 completed Not Available [facility] 08/08/2025 18:05:53 Influenza, split virus, quadrivalent, PF 7 completed Not Available [facility] 08/08/2025 18:05:53 zoster live 7 completed Not Available [facility] 08/08/2025 18:05:53 COVID-19, mRNA, LNP-S, PF, 100 mcg/0.5mL dose or 50 mcg/0.25mL dose 1 completed Not Available [facility] 08/08/2025 18:05:53 COVID-19, mRNA, LNP-S, PF, 100 mcg/0.5mL dose or 50 mcg/0.25mL dose 1 completed Not Available [facility] 08/08/2025 18:05:53 Influenza, split virus, quadrivalent, PF 3 completed Not Available [facility] 08/08/2025 18:05:53 Tdap 3 completed Not Available [facility] 08/08/2025 18:05:53 Influenza, split virus, quadrivalent, PF 3 completed Not Available [facility] 08/08/2025 18:05:53 Influenza, high-dose, trivalent, PF 4 completed Not Available [facility] 08/08/2025 18:05:53 COVID-19, mRNA, LNP-S, PF, 50 mcg/0.5 mL 4 completed Not Available [facility] 08/08/2025 18:05:53 Past Encounters Encounter ID Performer Location Encounter Start Date Encounter Closed Date Diagnosis/Indication Diagnosis SNOMED-CT Code Diagnosis ICD10 Code Diagnosis IMO Codes Diagnosis Note [id number] Mirza Tavarez DO [facility]) [address] [place] [address] 06/30/2025 07:15:24 07/04/2025 15:22:50 Benign hypertension 63340358 I10 Moderate r ecurrent major depression 22511229 F33.1 0215008 Depressive disorder 3548 9007 F32.A Essential hypertension 07233327 I10 34191 Primary insomnia 3712656 F51.01 46661 Primary ma lignant neoplasm of pancreas 122008691 C79.9 C25.9 87313405 [id number] Mirza Tavarez DO [facility] ([facility]) [address] [place] [address] 07/07/2025 10:36:56 07/12/2025 10:00:01 Primary malignant neoplasm of colon 01711614 C18.9 C79.9 43293541 [id number] Mirza Tavarez [facility] ([facility]) [address] [place] [address] 07/28/2025 11:42:39 08/08/2025 09:27:46 Benign hypertension 70042764 I10 Moderate r ecurrent major depression 69638614 F33.1 5266310 Depressive disorder 3548 9007 F32.A Primary insomnia 7232289 F51.01 04489 Essential hypertension 38144249 I10 81337 Primary ma lignant neoplasm of colon 60121137 C18.9 C79.9 69254749 Health Concerns Section Related Observation LastModified by Organization Detai ls LastModified Time None Recorded Concern Status LastModified by Organization Details LastModified Time None Recorded Payers Encounter Date Sequence Insurance Name Policy Number Policy Bernstein Covered Member ID Bernstein Member ID Guarantor Name 07/28/2025 1 MEDICARE [place]: [employer] Glenn Berg [id number] 0 [id number] Glenn Berg Notes Date Note Type Note Provider Name and Address Organization Details Recorded Time 07/28/2025 text/html Anxiety/Depressi onRep orted by PatientHPIFor severity, patient reportsincreased anxietybut reportsdenies suicidal ideations. For context, patient reportsrecent medical event.ROS as noted in the HPI seeing oncology, worsening pain. Mirza Tavarez DO [address] [place] [address], [phone], [facility], Adriana 08/05/2025 16:40:40 08/04/2025 text/html Anxiety/Depressi onRep orted by PatientHPIFor severity, patient reportsincreased anxietybut reportsdenies suicidal ideations. For context, patient reportsrecent medical event.ROS as noted in the HPI discuss driving on pain meds. Not Available Not Available Not Available
--- OUTSIDE RECORDS SUMMARY | 2025-08-21 14:05 | XMS_ITS | Data Portability ---
Author Organization SHAHEEN [facility] Adriana Parekh [facility] Address [address] [place] [address] Assessment No assessment recorded. Plan of Treatment [...] Modified By Organization Details Last Modified Time 05/26/2025 [id number] recently diagnosed pancreatic cancer with metastases throughout abdomen. History of colon cancer years ago. Following with oncology. Pain uncontrolled, change oxy to every 4 hours prn and start xtampza 18 bid [email or web address] Not available 05/31/2025 15:35:45 06/30/2025 [id number] oncology notes reviewed; working on controlling pain and nausea undergoing chemo Not available 07/01/2025 14:48:19 07/07/2025 [id number] adjusted pain medication. Not available 07/07/2025 12:22:38 07/28/2025 9594300 Pain continues t o be uncontrolled. Will change xtampza to 18mg 2 tabs bid. [email or web address] Not available 07/28/2025 11:54:48 Reason for Referral None Reported. Problems Name Problem SNOMED Code Status Onset Date Resolution Date Notes Provider Name and Address Organization Details Recorded Time Depressive disorder 57731065 Active 2019 Depressio n; 0 4:13PM by Meryl Méndez LPN, Office Visit; Promoted; acuity set as *; Not Available [facility] 3 03:16:40 Appendecto my Active 2019 Appendect quynh; 0 4:13PM by Meryl Méndez LPN, Office Visit; Promoted; acuity set as *; Not Available [facility] 3 03:16:41 Benign hypertensi on 56307713 Active 2019 HTN; 0 4:13PM by Meryl Méndez LPN, Office Visit; Promoted; acuity set as *; Not Available [facility] 3 03:16:44 Coronary artery anomaly NOS Active 2019 Coronary Artery Disease; 03/2016; 0 4:13PM by Meryl Méndez LPN, Office Visit; Promoted; acuity set as *; Not Available [facility] 3 03:16:45 Irritable bowel syndrome 27206305 Active 2019 IBS; 0 4:13PM by Meryl Méndez LPN, Office Visit; Promoted; acuity set as *; Not Available [facility] 3 03:16:45 Smoker 86105024 Active 2019 Smoker; 0 4:13PM by Meryl Méndez LPN, Office Visit; Promoted; acuity set as *; Not Available [facility] 3 03:16:47 Post-disch arge follow-up 266134653 Active 2024 EMILY anaya [facility] 5 12:42:30 Primary malignant neoplasm of colon 14609228 Active 2024 EMILY anaya [facility] 5 12:42:31 Essential hypertensi on 45974222 Active 2024 EMILY anaya [facility] 5 12:42:32 Moderate recurrent major depression 17187638 Active 2024 EMILY anaya [facility] 5 12:42:35 Primary insomnia 7875666 Active 2024 EMILY anaya [facility], [facility] 5 12:42:36 Problem Notes None recorded. Medical Equipment None Reported. Allergies Allergen ID Allergen Name Allergen Category Reaction Reaction Severity Criticality Documentation Date Start Date Code Code System Note Provider Name and Address Organization Details Recorded Time 84344 dimethyl isosorbid e Not available Not available Not available Not available 03/22/2023 14598 99 RxNorm Comme nt: Recor ded 10/26 4:13P M by Lara Gamas on, WATCH TRAIN INSPECTOR, Offic e Visit ; Promo tasha; Signi fican ce: *; Reaso n: Drug aller gy; ; Not Available [facility] 3 02:23:45 69532 Nubain medicatio n Not available Not available Not available 03/22/2023 7550 RxNorm Comme nt: Recor ded 10/26 4:13P M by Lara Gamas on, WATCH TRAIN INSPECTOR, Offic e Visit ; Promo tasha; Signi fican ce: *; ; Not Available [facility] 3 02:23:45 61985 irbesarta n Not available Not available Not available Not available 03/22/2023 71561 RxNorm Comme nt: Recor ded 10/26 4:13P M by Lara Gamas on, WATCH TRAIN INSPECTOR, Offic e Visit ; Promo tasha; Signi fican ce: *; ; Not Available [facility] 3 02:23:45 51496 trazodone medicatio n Not available Not available Not available 03/22/2023 98613 RxNorm Comme nt: Recor ded 10/26 4:13P M by Lara Gamas on, WATCH TRAIN INSPECTOR, Offic e Visit ; Promo tasha; Signi fican ce: *; ; Not Available [facility] 3 02:23:45 01185 codeine medicatio n Not available Not available Not available 03/22/2023 2670 RxNorm Comme nt: Recor ded 10/26 4:13P M by Lara Gamas on, WATCH TRAIN INSPECTOR, Offic e Visit ; Promo tasha; Signi fican ce: *; ; [facility] 3 02:23:45 13292 Rocephin medicatio n Not available Not available Not available 03/22/2023 9449 RxNorm Comme nt: Recor ded 10/26 4:13P M by Lara Locke on, WATCH TRAIN INSPECTOR, Offic e Visit ; Promo tasha; Deirdre alva ce: *; ; Not Available [facility] 3 02:23:45 23161 oxycodone medicatio n Not available Not available Not available 03/22/2023 7804 RxNorm Comme nt: Recor ded 10/26 4:13P M by Lara Locke on, WATCH TRAIN INSPECTOR, Offic e Visit ; Promo tasha; Deirdre alva ce: *; ; Not Available [facility] 3 02:23:45 Medications Name Sig Start [...] daily active Dr. Gill; 0; Recorded 10/27/19 4:16PM by Meryl Méndez LPN, Office Visit; [...] Available Not Avai lable Vitals Date Recorded Heart rate Respiratory rate Body temperature Oxygen saturation Systolic And Diastolic Provider Name and Address Organization Details Last Updated DateTime 5 66 /min 22 /min 97.8 [degF] 98 % 140/70 mm[Hg] [facility] 5 12:39:50 Date Recorded Body weight Heart rate Respiratory rate Body temperature Oxygen saturation Systolic And Diastolic Provider Name and Address Organization Details Last Updated DateTime 5 23477.4 8 g 78 /min 18 /min 97.5 [degF] 98 % 122/68 mm[Hg] [facility] 5 11:58:47 Date Recorded Body weight Heart rate Respiratory rate Body temperature Oxygen saturation Systolic And Diastolic Provider Name and Address Organization Details Last Updated DateTime 5 11904.4 8 g 78 /min 18 /min 97.5 [degF] 98 % 122/68 mm[Hg] [facility] 5 12:21:02 Date Recorded Body weight Heart rate Respiratory rate Body temperature Oxygen saturation Systolic And Diastolic Provider Name and Address Organization Details Last Updated DateTime 5 73326.0 7 g 82 /min 20 /min 98.8 [degF] 97 % 120/70 mm[Hg] [facility] 5 11:52:46 Date Recorded Body weight Heart rate Respiratory rate Body temperature Oxygen saturation Systolic And Diastolic Provider Name and Address Organization Details Last Updated DateTime 5 45463.0 7 g 81 /min 18 /min 97.6 [degF] 95 % 124/70 mm[Hg] EMILY CHAPPELL [facility] 5 13:00:37 Social History None recorded. Functional Status None recorded. Mental Status None recorded. Family History Nothing Reported. Medical History No medical history recorded. Immunizations Vaccine Type Date Status Note Provider Nam e and Address Organization Details Recorded Time Influenza, split virus, trivalent, preservative 0 completed Not Available [facility] 03/22/2023 02:52:00 zoster live 7 completed Not Available [facility] 03/22/2023 02:52:00 COVID-19, mRNA, LNP-S, PF, 100 mcg/0.5mL dose or 50 mcg/0.25mL dose 1 completed Not Available [facility] 03/22/2023 02:52:00 Influenza, split virus, trivalent, preservative 7 completed Not Available [facility] 03/22/2023 02:52:00 Influenza, split virus, trivalent, preservative 5 completed Not Available [facility] 08/08/2025 18:05:53 pneumococcal polysaccharide PPV23 5 completed Not Available [facility] 08/08/2025 18:05:53 Influenza, split virus, trivalent, PF 6 completed Not Available [facility] 08/08/2025 18:05:53 Tdap 7 completed Not Available [facility] 08/08/2025 18:05:53 Influenza, split virus, quadrivalent, PF 7 completed Not Available [facility] 08/08/2025 18:05:53 zoster live 7 completed Not Available [facility] 08/08/2025 18:05:53 COVID-19, mRNA, LNP-S, PF, 100 mcg/0.5mL dose or 50 mcg/0.25mL dose 1 completed Not Available [facility] 08/08/2025 18:05:53 COVID-19, mRNA, LNP-S, PF, 100 mcg/0.5mL dose or 50 mcg/0.25mL dose 1 completed Not Available [facility] 08/08/2025 18:05:53 Influenza, split virus, quadrivalent, PF 3 completed Not Available [facility] 08/08/2025 18:05:53 Tdap 3 completed Not Available [facility] 08/08/2025 18:05:53 Influenza, split virus, quadrivalent, PF 3 completed Not Available [facility] 08/08/2025 18:05:53 Influenza, high-dose, trivalent, PF 4 completed Not Available [facility] 08/08/2025 18:05:53 COVID-19, mRNA, LNP-S, PF, 50 mcg/0.5 mL 4 completed Not Available [facility] 08/08/2025 18:05:53 Past Encounters Encounter ID Performer Location Encounter Start Date Encounter Closed Date Diagnosis/Indication Diagnosis SNOMED-CT Code Diagnosis ICD10 Code Diagnosis IMO Codes Diagnosis Note [id number] Mirza Tavarez DO [facility] ([facility]) [address] [place] [address] 05/26/2025 12:35:41 05/31/2025 16:32:18 Post-discharge follow-up 829353244 Z09 939667 Essential hypertension 58701569 I10 65476 Moderate r ecurrent major depression 23560991 F33.1 7633073 Primary insomnia 7552743 F51.01 02837 Chronic pain 25438133 G8 9.29 Malignant neoplasm of head of pancreas 097405640 C25.0 47467 Metastatic adenocarcinoma 0931543991 73358 C79.9 877355 [id number] Mirza Tavarez DO [facility] ([facility]) [address] [place] [address] 06/30/2025 07:15:24 07/04/2025 15:22:50 Benign hypertension 18733730 I10 Moderate r ecurrent major depression 48020824 F33.1 3489862 Depressive disorder 3548 9007 F32.A Essential hypertension 42307945 I10 11847 Primary insomnia 7614081 F51.01 08314 Primary ma lignant neoplasm of pancreas 880518206 C79.9 C25.9 31724075 [id number] Mirza Tavarez DO [facility] ([facility]) [address] [place] [address] 07/07/2025 10:36:56 07/12/2025 10:00:01 Primary malignant neoplasm of colon 82293068 C18.9 C79.9 73218193 [id number] Mirza Tavarez DO [facility] ([facility]) [address] [place] [address] 07/28/2025 11:42:39 08/08/2025 09:27:46 Benign hypertension 10183248 I10 Moderate r ecurrent major depression 77531186 F33.1 4390411 Depressive disorder 3548 9007 F32.A Primary insomnia 3847489 F51.01 52571 Essential hypertension 59852707 I10 34275 Primary ma lignant neoplasm of colon 62533325 C18.9 C79.9 75761474 Health Concerns Section Related Observation LastModified by Organization Detai ls LastModified Time None Recorded Concern Status LastModified by Organization Details LastModified Time None Recorded Advance Directives Directive None Recorded Payers Insurance Date Sequence Insurance Name Policy Number Policy Bernstein Covered Member ID Bernstein Member ID Guarantor Name 07/29/2025 2 [place] Glenn Berg [id number] Glenn Berg 07/28/2025 1 [place] Glenn Berg [id number] Glenn Berg 07/28/2025 [place] - [facility] (MEDICARE) Glenn Berg [id number] Glenn Berg Notes Date Note Type Note Provider Name and Address Organization Details Recorded Time 05/26/2025 text/html Anxiety/Depressi onRep orted by PatientHPIFor severity, patient reportsincreased anxietybut reportsdenies suicidal ideations. For context, patient reportsrecent medical event.ROS as noted in the HPI new admit to snf. Planning to return home soon. Mirza Tavarez DO [address] [place] [address], [phone], [facility] 05/31/2025 15:35:56 06/30/2025 text/html Anxiety/Depressi onRep orted by PatientHPIFor severity, patient reportsincreased anxietybut reportsdenies suicidal ideations. For context, patient reportsrecent medical event.ROS as noted in the HPI seeing oncology. Mirza Tavarez DO [address] [place] [address], [phone], [facility] 07/01/2025 14:48:36 07/07/2025 text/html Anxiety/Depressi onRep orted by PatientHPIFor severity, patient reportsincreased anxietybut reportsdenies suicidal ideations. For context, patient reportsrecent medical event.ROS as noted in the HPI seeing oncology, worsening pain. Mirza Tavarez DO [address] [place] [address], [phone], [facility] 07/11/2025 15:33:59 07/28/2025 text/html Anxiety/Depressi onRep orted by PatientHPIFor severity, patient reportsincreased anxietybut reportsdenies suicidal ideations. For context, patient reportsrecent medical event.ROS as noted in the HPI seeing oncology, worsening pain. Mirza Tavarez DO [address] [place] [address], [phone], [facility] 08/05/2025 16:40:40 08/04/2025 text/html Anxiety/Depressi onRep orted by PatientHPIFor severity, patient reportsincreased anxietybut reportsdenies suicidal ideations. For context, patient reportsrecent medical event.ROS as noted in the HPI discuss driving on pain meds. Not Available Not Available Not Available
--- OUTSIDE RECORDS SUMMARY | 2025-08-21 14:05 | XMS_ITS | Continuity of Care Document ---
Author Organization SHAHEEN - [facility] Adriana Parekh, [facility] ([facility]) Address [address] [place] [address] Assessment No assessment recorded. Plan of Treatment [...] By Organization Details Last Modified Time 05/26/2025 [id number] recently diagnosed pancreatic cancer with metastases throughout abdomen. History of colon cancer years ago. Following with oncology. Pain uncontrolled, change oxy to every 4 hours prn and start xtampza 18 bid [email or web address] Not available 05/31/2025 15:35:45 Reason for Referral None Reported. Problems Name Problem SNOMED Code Status Onset Date Resolution Date Notes Provider Name and Address Organization Details Recorded Time Depressive disorder 63095166 Active 2019 Depressio n; 0 4:13PM by Meryl Méndez LPN, Office Visit; Promoted; acuity set as *; Not Available [facility] 3 03:16:40 Appendecto my Active 2019 Appendect quynh; 0 4:13PM by Meryl Méndez LPN, Office Visit; Promoted; acuity set as *; Not Available [facility] 3 03:16:41 Benign hypertensi on 83253817 Active 2019 HTN; 0 4:13PM by Meryl Méndez LPN, Office Visit; Promoted; acuity set as *; Not Available [facility] 3 03:16:44 Coronary artery anomaly NOS Active 2019 Coronary Artery Disease; 03/2016; 0 4:13PM by Meryl Méndez LPN, Office Visit; Promoted; acuity set as *; Not Available [facility] 3 03:16:45 Irritable bowel syndrome 41602785 Active 2019 IBS; 0 4:13PM by Meryl Méndez LPN, Office Visit; Promoted; acuity set as *; Not Available [facility] 3 03:16:45 Smoker 60377514 Active 2019 Smoker; 0 4:13PM by Meryl Méndez LPN, Office Visit; Promoted; acuity set as *; Not Available [facility] 3 03:16:47 Post-disch arge follow-up 720697602 Active 2024 EMILYLISETTE CHAPPELL [facility] 5 12:42:30 Primary malignant neoplasm of colon 55860608 [facility] 12:42:31 Essential hypertensi on 89823185 Active [facility] 5 12:42:32 Moderate recurrent major depression 31807076 Active 2024 EMILY CHAPPELL [facility] 5 12:42:35 Primary insomnia 4813420 Active 2024 [facility] 5 12:42:36 Problem Notes None recorded. Medical Equipment None Reported. Allergies Allergen ID Allergen Name Allergen Category Reaction Reaction Severity Criticality Documentation Date Start Date Code Code System Note Provider Name and Address Organization Details Recorded Time 61412 dimethyl isosorbid e Not available Not available Not available Not available 03/22/2023 50047 99 RxNorm Comme nt: Recor ded 10/26 4:13P M by Lara Gamas on, QUILL CLEANER, Offic e Visit ; Promo tasha; Signi fican ce: *; Reaso n: Drug aller gy; ; Not Available [facility] 3 02:23:45 90375 Nubain medicatio n Not available Not available Not available 03/22/2023 7550 RxNorm Comme nt: Recor ded 10/26 4:13 PM by Lara Gamas on, QUILL CLEANER, Offic e Visit ; Promo tasha; Signi fican ce: *; ; Not Available [facility] 3 02:23:45 36457 irbesarta n Not available Not available Not available Not available 03/22/2023 88815 RxNorm Comme nt: Recor ded 10/26 4:13P M by Lara Gamas on, QUILL CLEANER, Offic e Visit ; Promo tasha; Signi fican ce: *; ; Not Available [facility] 3 02:23:45 21206 trazodone medicatio n Not available Not available Not available 03/22/2023 02136 RxNorm Comme nt: Recor ded 10/26 4:13P M by Lara Gamas on, QUILL CLEANER, Offic e Visit ; Promo tasha; Signi fican ce: *; ; Not Available [facility] 3 02:23:45 66067 codeine medicatio n Not available Not available Not available 03/22/2023 2670 RxNorm Comme nt: Recor ded 10/26 4:13P M by Lara Gamas on, QUILL CLEANER, Offic e Visit ; Promo tasha; Signi fican ce: *; ; Not Available [facility] 3 02:23:45 58061 Rocephin medicatio n Not available Not available Not available 03/22/2023 9449 RxNorm Comme nt: Recor ded 10/26 4:13P M by Lara Gamas on, QUILL CLEANER, Offic e Visit ; Promo tasha; Signi fican ce: *; ; Not Available [facility] 3 02:23:45 63077 oxycodone medicatio n Not available Not available Not available 03/22/2023 7804 RxNorm Comme nt: Recor ded 10/26 4:13P M by Lara Locke on, QUILL CLEANER, Offic e Visit ; Rhonda cordova; Deirdre alva ce: *; ; Not Available [facility] 3 02:23:45 Medications Name Sig Start Date [...] /min 97.8 [degF] 98 % 140/70 mm[Hg] EMILY CHAPPELL [facility] 5 12:39:50 Social History None recorded. Functional Status None recorded. Mental Status None recorded. Family History Nothing Reported. Medical History No medical history recorded. Immunizations Vaccine Type Date Status Note Provider Nam e and Address Organization Details Recorded Time Influenza, split virus, trivalent, preservative 0 completed Not Available [facility] 03/22/2023 02:52:00 zoster live 7 completed Not Available [facility] 03/22/2023 02:52:00 COVID-19, mRNA, LNP-S, PF, 100 mcg/0.5mL dose or 50 mcg/0.25mL dose 1 completed Not Available [facility] 03/22/2023 02:52:00 Influenza, split virus, trivalent, preservative 7 completed Not Available [facility] 03/22/2023 02:52:00 Influenza, split virus, trivalent, preservative 5 completed Not Available [facility] 08/08/2025 18:05:53 pneumococcal polysaccharide PPV23 5 completed Not Available [facility] 08/08/2025 18:05:53 Influenza, split virus, trivalent, PF 6 completed Not Available [facility] 08/08/2025 18:05:53 Tdap 7 completed Not Available [facility] 08/08/2025 18:05:53 Influenza, split virus, quadrivalent, PF 7 completed Not Available [facility] 08/08/2025 18:05:53 zoster live 7 completed Not Available [facility] 08/08/2025 18:05:53 COVID-19, mRNA, LNP-S, PF, 100 mcg/0.5mL dose or 50 mcg/0.25mL dose 1 completed Not Available [facility] 08/08/2025 18:05:53 COVID-19, mRNA, LNP-S, PF, 100 mcg/0.5mL dose or 50 mcg/0.25mL dose 1 completed Not Available [facility] 08/08/2025 18:05:53 Influenza, split virus, quadrivalent, PF 3 completed Not Available [facility] 08/08/2025 18:05:53 Tdap 3 completed Not Available [facility] 08/08/2025 18:05:53 Influenza, split virus, quadrivalent, PF 3 completed Not Available [facility] 08/08/2025 18:05:53 Influenza, high-dose, trivalent, PF 4 completed Not Available [facility] 08/08/2025 18:05:53 COVID-19, mRNA, LNP-S, PF, 50 mcg/0.5 mL 4 completed Not Available [facility] 08/08/2025 18:05:53 Past Encounters Encounter ID Performer Location Encounter Start Date Encounter Closed Date Diagnosis/Indication Diagnosis SNOMED-CT Code Diagnosis ICD10 Code Diagnosis IMO Codes Diagnosis Note [id number] Mirza Tavarez DO [facility] ([facility]) [address] [place] [address] 05/26/2025 12:35:41 05/31/2025 16:32:18 Post-discharge follow-up 863906657 Z09 504980 Essential hypertension 75005193 I10 24005 Moderate r ecurrent major depression 66368955 F33.1 6091425 Primary insomnia 7657143 F51.01 64714 Chronic pain 54474882 G8 9.29 Malignant neoplasm of head of pancreas 068665652 C25.0 24908 Metastatic adenocarcinoma 4711716174 52792 C79.9 546196 Health Concerns Section Related Observation LastModified by Organization Rohit bowles LastModified Time None Recorded Concern Status LastModified by Organization Details LastModified Time None Recorded Payers Encounter Date Sequence Insurance Name Policy Number Policy Bernstein Covered Member ID Bernstein Member ID Guarantor Name 05/26/2025 1 [place] Glenn Berg [id number] Glenn Leonides Otis Notes Date Note Type Note Provider Name and Address Organization Details Recorded Time 05/26/2025 text/html Anxiety/Depressi onRepo rted by PatientHPIFor severity, patient reportsincreased anxietybut reportsdenies suicidal ideations. For context, patient reportsrecent medical event.ROS as noted in the HPI new admit to snf. Planning to return home soon. Mirza Tavarez, DO [address] [place] [address], [phone], [facility] 05/31/2025 15:35:56
--- OUTSIDE RECORDS SUMMARY | 2025-08-21 14:05 | XMS_ITS | Continuity of Care Document ---
Author Organization SHAHEEN - Lucio Bennett [facility] Adriana Parekh, [facility] ([facility]) Address [address] [place] [address] Assessment No assessment recorded. Plan of Treatment [...] Modified By Organization Details Last Modified Time 06/30/2025 [id number] oncology notes reviewed; working on controlling pain and nausea undergoing chemo [email or web address] Not available 07/01/2025 14:48:19 Reason for Referral None Reported. Problems Name Problem SNOMED Code Status Onset Date Resolution Date Notes Provider Name and Address Organization Details Recorded Time Depressive disorder 00181559 Active 2019 Depressio n; 0 4:13PM by Meryl Méndez LPN, Office Visit; Promoted; acuity set as *; Not Available [facility] 3 03:16:40 Appendecto my Active 2019 Appendect quynh; 0 4:13PM by Meryl Méndez LPN, Office Visit; Promoted; acuity set as *; Not Available [facility] 3 03:16:41 Benign hypertensi on 82059773 Active 2019 HTN; 0 4:13PM by Meryl Méndez LPN, Office Visit; Promoted; acuity set as *; Not Available [facility] 3 03:16:44 Coronary artery anomaly NOS Active 2019 Coronary Artery Disease; 03/2016; 0 4:13PM by Meryl Méndez LPN, Office Visit; Promoted; acuity set as *; Not Available [facility] 3 03:16:45 Irritable bowel syndrome 37174471 Active 2019 IBS; 0 4:13PM by Meryl Méndez LPN, Office Visit; Promoted; acuity set as *; Not Available [facility] 3 03:16:45 Smoker 37826479 Active 2019 Smoker; 0 4:13PM by eMryl Méndez LPN, Office Visit; Promoted; acuity set as *; Not Available [facility] 3 03:16:47 Post-disch arge follow-up 675813783 Active 2024 [facility] 5 12:42:30 Primary malignant neoplasm of colon 38641985 Active 2024 EMILY CHAPPELL [facility] 5 12:42:31 Essential hypertensi on 31060242 Active 2024 EMILYLISETTE CHAPPELL [facility] 5 12:42:32 Moderate recurrent major depression 66236087 Active 2024 [facility]ILY [facility]APPE[facility] 5 12:42:35 Primary insomnia 5585568 Active 2024 EMILY CHAPPELL [facility] 5 12:42:36 Problem Notes None recorded. Medical Equipment None Reported. Allergies Allergen ID Allergen Name Allergen Category Reaction Reaction Severity Criticality Documentation Date Start Date Code Code System Note Provider Name and Address Organization Details Recorded Time 66647 dimethyl isosorbid e Not available Not available Not available Not available 03/22/2023 06400 99 RxNorm Comme nt: Recor ded 10/26 4:13P M by Lara Locke on, MARSHA, Offic e Visit ; Promo tasha; Deirdre alva ce: *; Reaso n: Drug aller gy; ; Not Available [facility] 3 02:23:45 18664 Nubain medicatio n Not available Not available Not available 03/22/2023 7550 RxNorm Comme nt: Recor ded 10/26 4:13P M by Lara Gamas on, SET UP TECHNICIAN, Offic e Visit ; Promo tasha; Signi fican ce: *; ; Not Available [facility] 3 02:23:45 61196 irbesarta n Not available Not available Not available Not available 03/22/2023 46770 RxNorm Comme nt: Recor ded 10/26 4:13P M by Lara Gamas on, SET UP TECHNICIAN, Offic e Visit ; Promo tasha; Signi fican ce: *; ; Not Available [facility] 3 02:23:45 40255 trazodone medicatio n Not available Not available Not available 03/22/2023 49623 RxNorm Comme nt: Recor ded 10/26 4:13P M by Lara Gamas on, SET UP TECHNICIAN, Offic e Visit ; Promo tasha; Signi fican ce: *; ; Not Available [facility] 3 02:23:45 86883 codeine medicatio n Not available Not available Not available 03/22/2023 2670 RxNorm Comme nt: Recor ded 10/26 4:13P M by Lara Gamas on, SET UP TECHNICIAN, Offic e Visit ; Promo tasha; Signi fican ce: *; ; Not Available [facility] 3 02:23:45 49361 Rocephin medicatio n Not available Not available Not available 03/22/2023 9449 RxNorm Comme nt: Recor ded 10/26 4:13P M by Lara Gamas on, SET UP TECHNICIAN, Offic e Visit ; Promo tasha; Signi fican ce: *; ; Not Available [facility] 3 02:23:45 78494 oxycodone medicatio n Not available Not available Not available 03/22/2023 7804 RxNorm Comme nt: Recor ded 10/26 4:13P M by Lara clark, MARSHA, Offic e Visit ; Rhonda cordova; Deirdre alva ce: *; ; Not Available [facility] 3 02:23:45 Medications Name Sig Start Date [...] 0; Recorded 10/27/19 20 4:16PM by Meryl éMndez LPN, Office Visit; Not Available Not Available [...] Address Organization Details Last Updated DateTime 5 85015.4 8 g 78 /min 18 /min 97.5 [degF] 98 % 122/68 mm[Hg] [facility] 5 11:58:47 Social History None recorded. Functional Status None recorded. Mental Status None recorded. Family History Nothing Reported. Medical History No medical history recorded. Immunizations Vaccine Type Date Status Note Provider Nam e and Address Organization Details Recorded Time Influenza, split virus, trivalent, preservative 0 completed Not Available [facility] 03/22/2023 02:52:00 zoster live 7 completed Not Available [facility] 03/22/2023 02:52:00 COVID-19, mRNA, LNP-S, PF, 100 mcg/0.5mL dose or 50 mcg/0.25mL dose 1 completed Not Available [facility] 03/22/2023 02:52:00 Influenza, split virus, trivalent, preservative 7 completed Not Available [facility] 03/22/2023 02:52:00 Influenza, split virus, trivalent, preservative 5 completed Not Available [facility] 08/08/2025 18:05:53 pneumococcal polysaccharide PPV23 5 completed Not Available [facility] 08/08/2025 18:05:53 Influenza, split virus, trivalent, PF 6 completed Not Available [facility] 08/08/2025 18:05:53 Tdap 7 completed Not Available [facility] 08/08/2025 18:05:53 Influenza, split virus, quadrivalent, PF 7 completed Not Available [facility] 08/08/2025 18:05:53 zoster live 7 completed Not Available [facility] 08/08/2025 18:05:53 COVID-19, mRNA, LNP-S, PF, 100 mcg/0.5mL dose or 50 mcg/0.25mL dose 1 completed Not Available [facility] 08/08/2025 18:05:53 COVID-19, mRNA, LNP-S, PF, 100 mcg/0.5mL dose or 50 mcg/0.25mL dose 1 completed Not Available [facility] 08/08/2025 18:05:53 Influenza, split virus, quadrivalent, PF 3 completed Not Available [facility] 08/08/2025 18:05:53 Tdap 3 completed Not Available [facility] 08/08/2025 18:05:53 Influenza, split virus, quadrivalent, PF 3 completed Not Available [facility] 08/08/2025 18:05:53 Influenza, high-dose, trivalent, PF 4 completed Not Available [facility] 08/08/2025 18:05:53 COVID-19, mRNA, LNP-S, PF, 50 mcg/0.5 mL 4 completed Not Available [facility] 08/08/2025 18:05:53 Past Encounters Encounter ID Performer Location Encounter Start Date Encounter Closed Date Diagnosis/Indication Diagnosis SNOMED-CT Code Diagnosis ICD10 Code Diagnosis IMO Codes Diagnosis Note [id number] Mirza Tavarez DO [facility]) [address] [place] [phone] 06/30/2025 07:15:24 07/04/2025 15:22:50 Benign hypertension 48880034 I10 Moderate r ecurrent major depression 94732762 F33.1 1959744 Depressive disorder 3548 9007 F32.A Essential hypertension 44483936 I10 86697 Primary insomnia 3591609 F51.01 18878 Primary ma lignant neoplasm of pancreas 290668715 C79.9 C25.9 24773132 Health Concerns Section Related Observation LastModified by Organization Detai ls LastModified Time None Recorded Concern Status LastModified by Organization Details LastModified Time None Recorded Payers Encounter Date Sequence Insurance Name Policy Number Policy Bernstein Covered Member ID Bernstein Member ID Guarantor Name 06/30/2025 1 MEDICARE B-[place]: [employer] Glenn Berg [id number] Glenn Berg Notes Date Note Type Note Provider Name and Address Organization Details Recorded Time 06/30/2025 text/html Anxiety/Depressi onRepo rted by PatientHPIFor severity, patient reportsincreased anxietybut reportsdenies suicidal ideations. For context, patient reportsrecent medical event.ROS as noted in the HPI seeing oncology. Mirza Tavarez, DO [address] [place] [address], [id number], [facility] 07/01/2025 14:48:36
[2025-08-21 15:05] LABS: Hematocrit 42.6 % (37-53); Hemoglobin 13.60 g/dL (11.27-16.99); Mean Corpuscular HGB Conc 31.9 g/dL (30-55); Mean Corpuscular Hemoglobin 28.4 pg (27-33); Mean Corpuscular Volume 88.9 fl (82-101); Nucleated Red Blood Cells % 0 %; Platelet Count 213 10^3/cmm (157-399); Red Blood Count 4.79 10^6/uL (3.85-5.65); White Blood Count 4.61 10^3/uL (3.29-11.43)
[2025-08-21 15:34] LABS: Alanine Aminotransferase 32 U/L (0-41); Albumin Level 3.9 g/dL (3.5-5.2); Alkaline Phosphatase 193 U/L (40-130); Anion Gap 15.8 (5-19); Aspartate Amino Transferase 29 U/L (0-40); Blood Urea Nitrogen 10 mg/dL (8-23); Calcium 9.6 mg/dL (8.5-10.5); Carbon Dioxide 25 mmol/L (22-29); Chloride 105 mmol/L (98-107); Creatinine Clr Calc Pharmacy 90.4465; Globulin 3.0 g/dL (1.3-4.6); Glucose 101 mg/dL (65-115); Lipase 22 U/L (13-60); Osmolality Calculated 293 mOsm/kg (285-295); Potassium 3.8 mmol/L (3.5-5.1); Sodium 142 mmol/L (136-145); Thyroid Stimulating Hormone 0.47 uIU/mL (0.27-4.20); Total Protein 6.9 g/dL (6.6-8.7)
[2025-08-21 15:48] VITALS: BP 162/102; PULSE 87; O2SAT 98
[2025-08-21 16:00] VITALS: BP 154/100; PULSE 88; O2SAT 94
--- NOTE | 2025-08-21 16:07 | W.ED.GENADLT ---
HPI - General Adult General: Chief complaint: General Medical Stated complaint: weakness, d,n pt does have cancer Time Seen by Provider: 08/21/25 15:49 History of Present Illness: Patient is 69-year-old male with pancreatic cancer, metastasis, previous colon cancer, now metastasis, presents to the ED due to pain. Patient states that he left the [facility] ago, and was not given any of his oxycodone. He states that he was given 2 fentanyl patches, however I threw that junk away, and do not want anything to do with that. He has not contacted his primary care narcotic physician/Dr. Montalvo oncology. He states the last time he had this issue he came to the ER and he was able to get a prescription. Associated symptoms: Reports nausea; Deny chest pain, confusion, dyspnea, rash or vomiting Related Data Home Medications ?Medication ?Instructions ?Recorded ?Confirmed lisinopril 20 mg tablet 20 mg PO DAILY 05/16/25 08/10/25 sertraline 25 mg tablet 25 mg PO BEDTIME 05/16/25 08/10/25 bisacodyl 10 mg rectal suppository 10 mg UT DAILY PRN Constipation 05/17/25 08/10/25 (Dulcolax (bisacodyl)) magnesium hydroxide 400 mg/5 mL 400 mg PO DAILY PRN Constipation 05/17/25 08/10/25 oral suspension (Milk of Magnesia) diazepam 10 mg tablet (Valium) 10 mg PO .qpm PRN Anxiety 06/01/25 08/10/25 Previous Rx's ?Medication ?Instructions ?Recorded atorvastatin 10 mg tablet 10 mg PO BEDTIME cholesterol #90 06/04/24 tabs cane #1 ea 08/10/24 gabapentin 300 mg capsule 300 mg PO BID chronic pain #60 caps 01/15/25 zolpidem 10 mg tablet (Ambien) 10 mg PO .qpm PRN insomnia #30 tabs 03/23/25 ondansetron HCl 8 mg tablet 8 mg PO Q8H PRN nausea and 05/03/25 vomiting #90 tabs benzonatate 100 mg capsule 100 mg PO TID PRN cough #30 caps 07/26/25 famotidine 20 mg tablet (Pepcid) 20 mg PO BID 6 weeks #84 tabs 08/03/25 fentanyl 25 mcg/hr transdermal 1 patch transdermal Q72H 15 days 12/10/25 patch #5 ea oxycodone 10 mg tablet 10 mg PO Q4H PRN pain 30 days #180 08/03/25 tabs oxycodone 30 mg tablet,crush 30 mg PO BID 30 days #60 tabs 08/03/25 resistant,extended release 12 hr (OxyContin) Allergies Allergy/AdvReac Type Severity Reaction Status Date / Time No Known Allergies Allergy Verified 08/21/25 14:05 Review of Systems General: Reports: 10 or more systems reviewed and unremarkable except in HPI and below Const: Denies: fever(s) Eyes: Denies: change in vision ENMT: Denies: throat pain or oral sores Card: Denies: chest pain Resp: Denies: dyspnea GI: Reports: nausea; Denies: abdominal pain or vomiting : Denies: hematuria Musc: Denies: joint pain or joint swelling Skin/Breast: Denies: rash Neuro: Reports: other (cranial nerves normal, no focal signs); Denies: confusion Psych: Reports: other (Insight normal) Endo: Denies: polyuria Roge/Lymph: Denies: easy bruising All/Imm: Denies: urticaria PFSH ED PFSH: Medical History (Updated 08/21/25 @ 17:34 by BRENNAN Nathan) Adenocarcinoma of head of pancreas dx 2024, had bx; on chemo; seeing oncology Dr. Montalvo Screening for lung cancer LDCT 7.11.16, f/u 1 yr Nicotine dependence, cigarettes, with other nicotine-induced disorders Lumbar stenosis with neurogenic claudication referred to neurosurgeon but he canceled appt--doesn't want surgery Anxiety Atrophy of muscle of right lower leg due to lumbar problems Encounter for chronic pain management was on hydrocodone for chronic back pain; legacy patient inherited; now has cancer so oncology changed to oxycodone/oxycontin Adenocarcinoma of cecum had hemicolectomy; no radiation; took chemo X 6 months; no longer sees oncologist; sees DR. Dey--surgeon; now 05.19--CT shows probable mets Lumbar spinal stenosis Back pain of lumbar region with sciatica sciatica on right Chronic GERD Depression citalopram, duloxetine, wellbutrin, mirtazipine and abilify did not help Pain involving joints of fingers of both hands Hepatomegaly Insomnia tried doxepin, mirtazipine, abilify, zolpidem Intractable neuropathic pain of hand Hx of migraine headaches Hx of herpes zoster Hx of irritable bowel syndrome Erectile dysfunction CAD (coronary artery disease) hx of cardiac cath that showed blockage; no stents Dyslipidemia HTN (hypertension) Surgical History Hx of colonoscopy 1.14.25--normal; f/u 3 yrs; DR. Dey Hx of cardiac cath cardiac cath by DR. Song in past--was told he has blockage--no stents History of right hemicolectomy (05/18/23) Hx of arthroscopy of right knee Hx of carpal tunnel repair bilaterally--had it done twice Hx of appendectomy Hx of discectomy cervical Family History Mother Diabetes mellitus, type 2 Other Diabetes Social History Smoking and tobacco/nicotine status: light tobacco/nicotine user cigarettes Packs smoked per day: 0.5 Years cigarettes smoked: 50 Alcohol intake: never Substance/Drug Use: never Household members: none Marital status: Number of children: 4 Highest education level completed: 7th Grade Current occupational status: disabled 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 Physical Exam Const: COMMON NORMALS: no acute distress, patient oriented x3 and alert GENERAL APPEARANCE: other (moderately built and nourished) HENMT: COMMON NORMALS: normocephalic HEAD & SCALP: normocephalic MOUTH: other (oral mucosa normal) Eye: COMMON NORMALS: EOMs intact bilaterally and no scleral icterus Neck/C-Spine: COMMON NORMALS: no lymphadenopathy and Thyroid normal THYROID: Thyroid normal Lymph: LYMPHATIC: no lymphadenopathy noted Resp: COMMON NORMALS: clear to auscultation bilaterally AUSCULTATION: clear to auscultation bilaterally Cardio: COMMON NORMALS: regular rate, regular rhythm, No murmurs present (Cardio) and No rub (Cardio) RATE: regular rate RHYTHM: regular rhythm GI: COMMON NORMALS: Soft to palpation, non-tender and No hepatosplenomegaly present PALPATION: Yes Soft to palpation and Yes No hepatosplenomegaly present OTHER: Nondistended : COMMON NORMALS: Yes no CVA tenderness BLADDER/KIDNEY EXAM: Yes no CVA tenderness Back/Pelvis: COMMON NORMALS: no CVA tenderness Extremity: COMMON NORMALS: normal to inspection and no pedal edema Neuro: COMMON NORMALS: patient oriented x3 and no focal motor deficits SENSORIUM/ORIENTATION: Yes alert SPEECH: speech normal Psych: COMMON NORMALS: mental status grossly normal Skin: COMMON NORMALS: no rashes or lesions noted GENERAL SKIN EXAM: no rashes or lesions noted Course Vital Signs: Vital signs: Vital Signs Temperature 97.8 F 08/21/25 14:00 Pulse Rate 88 08/21/25 16:00 Respiratory Rate 16 08/21/25 16:22 Blood Pressure 154/100 08/21/25 16:00 Pulse Oximetry 96 08/21/25 16:22 Oxygen Delivery Me thod Room Air 08/21/25 16:00 [facility] - General Adult Medical Decision Making Patient is 69-year-old male that complains of generalized weakness, and pain in his lower abdomen. His exam is benign. His nonverbal pain score is 3?5. He was given oxycodone times here once. He was to be sent home with 2 oxycodones, to follow-up with his doctor, however patient eloped. His vital signs did not show any tachycardia. He did not have signs and symptoms of withdrawal. I do believe that he does have pain associated with his adenocarcinoma of the pancreas and metastasis. In any event, I attempted to cover his pain in the ED, however patient did elope. I did refer him to his primary pain physician and stated that it is outside of our scope in the ED to write prescriptions for pain medication/cover pain for pain management. Medical Records I reviewed the patient's medical records. Lab Data I reviewed the patient's lab results. 08/21/25 14:55 08/21/25 14:55 Radiology Impressions Chest X-Ray 08/21/25 14:03 IMPRESSION: No acute findings. Right-sided Port-A-Cath placement without pneumothorax. Laboratory Results WBC 4.61 10^3/uL (3.29-11.43) 08/21/25 14:55 RBC 4.79 10^6/uL (3.85-5.65) 08/21/25 14:55 Hgb 13.60 g/dL (11.27-16.99) 08/21/25 14:55 Hct 42.6 % (37-53) 08/21/25 14:55 MCV 88.9 fl (82-101) 08/21/25 14:55 MCH 28.4 pg (27-33) 08/21/25 14:55 MCHC 31.9 g/dL (30-55) 08/21/25 14:55 RDW 17.7 % (12.1-15.1) H 08/21/25 14:55 Plt Count 213 10^3/cmm (157-399) 08/21/25 14:55 MPV 9.5 fL (7.4-10.4) 08/21/25 14:55 Neut % (Auto) 56.6 % 08/21/25 14:55 Lymph % (Auto) 26.5 % 08/21/25 14:55 Kaufman % (Auto) 13.4 % 08/21/25 14:55 Eos % (Auto) 2.2 % 08/21/25 14:55 Baso % (Auto) 0.9 % 08/21/25 14:55 Neut # (Auto) 2.61 10^3/uL (1.8-7.7) 08/21/25 14:55 Lymph # (Auto) 1.2 10^3/uL (0.8-4.8) 08/21/25 14:55 Kaufman # (Auto) 0.6 10^3/uL (0.2-0.9) 08/21/25 14:55 Eos # (Auto) 0.1 10^3/uL (0.0-0.8) 08/21/25 14:55 Baso # (Auto) 0.0 10^3/uL (0.0-0.1) 08/21/25 14:55 Nucleated RBC % (auto) 0 % 08/21/25 14:55 Nucleated RBCs # 0.0 /100WBC 08/21/25 14:55 Sodium 142 mmol/L (136-145) 08/21/25 14:55 Potassium 3.8 mmol/L (3.5-5.1) 08/21/25 14:55 Chloride 105 mmol/L (98-107) 08/21/25 14:55 Carbon Dioxide 25 mmol/L (22-29) 08/21/25 14:55 Anion Gap 15.8 (5-19) 08/21/25 14:55 BUN 10 mg/dL (8-23) 08/21/25 14:55 Creatinine 0.8 mg/dL (0.7-1.2) 08/21/25 14:55 GFR Calculation 96.1 mL/min (90-130) 08/21/25 14:55 Glucose 101 mg/dL (65-115) 08/21/25 14:55 Calculated Osmolality 293 mOsm/kg (285-295) 08/21/25 14:55 Calcium 9.6 mg/dL (8.5-10.5) 08/21/25 14:55 Total Bilirubin 0.3 mg/dL (0.15-1.2) 08/21/25 14:55 AST 29 U/L (0-40) 08/21/25 14:55 ALT 32 U/L (0-41) 08/21/25 14:55 Alkaline Phosphatase 193 U/L (40-130) H 08/21/25 14:55 Total Protein 6.9 g/dL (6.6-8.7) 08/21/25 14:55 Albumin 3.9 g/dL (3.5-5.2) 08/21/25 14:55 Globulin 3.0 g/dL (1.3-4.6) 08/21/25 14:55 Lipase 22 U/L (13-60) 08/21/25 14:55 TSH 0.47 uIU/mL (0.27-4.20) 08/21/25 14:55 Urine Color Yellow (Yellow) 08/21/25 12:28 Urine Appearance Clear (CLEAR) 08/21/25 12:28 Urine pH 6.0 (5-7) 08/21/25 12: Ur Specific [place] 1.005 (1.005-1.030) 08/21/25 12:28 Urine Protein Negative (Negative) 08/21/25 12:28 Urine Glucose (UA) Negative (Normal) 08/21/25 12:28 Urine Ketones Negative (Negative) 08/21/25 12:28 Urine Blood Negative (Negative) 08/21/25 12:28 Urine Nitrate Negative (Negative) 08/21/25 12:28 Urine Bilirubin Negative (Negative) 08/21/25 12:28 Urine Urobilinogen 0.2 mg/dL (Negative) 08/21/25 12:28 Ur Leukocyte Esterase Negative (Negative) 08/21/25 12:28 Urine RBC 0-2 /hpf (0-2) 08/21/25 12:28 Urine WBC 0-5 /hpf (0-5) 08/21/25 12:28 Ur Squamous Epith Cells 0-5 /hpf (0-5) 08/21/25 12:28 Amorphous Sediment Not Reportable 08/21/25 12:28 Urine Bacteria None seen /hpf (NONE) 08/21/25 12:28 Hyaline Casts 0-4 /lpf H 08/21/25 12:28 Influenza A (PCR) Negative (Negative) 08/21/25 16:23 Influenza Type B (PCR) Negative (Negative) 08/21/25 16:23 RSV (PCR) Negative (Negative) 08/21/25 16:23 SARS-CoV-2 (PCR) Negative (Negative) 08/21/25 16:23 All radiology interpretation(s) finalized by discharge Discharge Plan Discharge Patient Disposition: Elopement Clinical Impression: Weakness, Acute narcotic withdrawal without complication Condition: Stable Prescriptions: No Action atorvastatin 10 mg tablet 10 mg PO BEDTIME Qty: 90 1RF benzonatate 100 mg capsule 100 mg PO TID PRN (Reason: cough) Qty: 30 0RF (DME) cane Device See Rx Instructions .Route Qty: 1 0RF Rx Instructions: As directed ondansetron HCl 8 mg tablet 8 mg PO Q8H PRN (Reason: nausea and vomiting) Qty: 90 0RF gabapentin 300 mg capsule 300 mg PO BID Qty: 60 5RF zolpidem [Ambien] 10 mg tablet 10 mg PO .qpm PRN (Reason: insomnia) Qty: 30 5RF famotidine [Pepcid] 20 mg tablet 20 mg PO BID 42 Days Qty: 84 0RF fentanyl 25 mcg/hr patch 72 hour 1 patch transdermal Q72H 15 Days Qty: 5 0RF oxycodone 10 mg tablet 10 mg PO Q4H MDD 6 PRN (Reason: pain) 30 Days Qty: 180 0RF oxycodone [OxyContin] 30 mg tablet,oral only,ext.rel.12 hr 30 mg PO BID 30 Days Qty: 60 0RF diazepam [Valium] 10 mg tablet 10 mg PO .qpm PRN (Reason: Anxiety) lisinopril 20 mg tablet 20 mg PO DAILY Rx Instructions: TAKE 1 TABLET BY MOUTH EVERY DAY FOR BLOOD PRESSURE sertraline 25 mg tablet 25 mg PO BEDTIME Rx Instructions: TAKE 1 TABLET BY MOUTH EVERY EVENING magnesium hydroxide [Milk of Magnesia] 400 mg/5 mL Suspension 400 mg PO DAILY PRN (Reason: Constipation) bisacodyl [Dulcolax (bisacodyl)] 10 mg Suppository 10 mg UT DAILY PRN (Reason: Constipation) Referrals: Nancy Neely MD [Primary Care Provider, Family Practice] Print Language: Faroese Coding Level of Care Code ED [employer] 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
[2025-08-21 16:22] VITALS: RESP 16; O2SAT 96
[2025-08-21] MEDS: oxyCODONE 5 mg IR Tab/Cap 10 MG PO (16:22)
[2025-08-21 16:30] LABS: Glucose Urine UA Negative (Normal); Nitrate Urine Negative (Negative); Specific Gravity, Urine 1.005 (1.005-1.030)
--- NOTE | 2025-08-21 16:30 | PC.PHAR ---
Addendum entered by Karen Sanchez 08/21/25 16:34: was Original Note: pt is resident at [facility]
[2025-08-21 16:34] LABS: Add Urine Microscopic? YES
[2025-08-21 17:05] LABS: Respiratory Syncytial Virus Ce NEGATIVE (Negative); SARS-CoV-2 PCR NEGATIVE (Negative)
== END 2025-08-21 16:40 ==
PROVIDERS: Emergency Medicine; Emergency Provider Physician Assistant; PCP Family Medicine
DX: R53.1 Weakness (principal); F11.23 Opioid dependence with withdrawal; Z11.52 Encounter for screening for COVID-19; F17.210 Nicotine dependence, cigarettes, uncomplicated; E78.5 Hyperlipidemia, unspecified; I25.10 Atherosclerotic heart disease of native coronary artery without angina pectoris; I10 Essential (primary) hypertension; C25.0 Malignant neoplasm of head of pancreas; C18.0 Malignant neoplasm of cecum
CPT/HCPCS: 36415; 71045; 80053; 81001; 83690; 84443; 85025; 87637; 93005; 99285; J9999

== ENCOUNTER 2025-08-24 07:37 | Oncology outpatient (recurring) (ONCR) | payer MEDICARE, MEDICAID, SELFPAY ==
--- NOTE | 2025-08-19 11:00 | CT_ITS ---
WS: [id number] CT CHEST, ABDOMEN AND PELVIS WITH CONTRAST HISTORY: adenocarcinoma of head of pancreas and cecum TECHNIQUE: Contiguous 5 mm axial imaging performed through the chest, abdomen and pelvis with IV contrast, oral contrast has been provided. Coronal and sagittal reformats chest. Coronal and sagittal reformats through the abdomen and pelvis. All CT scans at [facility] use at least one of these dose optimization techniques: automated exposure control; mA and/or kV adjustment per patient size (includes targeted exams where dose is matched to clinical indication); or iterative reconstruction. CONTRAST: Omnipaque 350; 100 mL IV. DLP: 671.68 mGy.cm COMPARISON: 04/29/2025, 02/24/2025, 07/08/2023, PET/CT 05/13/[address]: Hyperexpanded lungs from centrilobular emphysema. Stable 3 mm nodule LEFT upper lobe. No new or enlarging pulmonary mass. Benign granuloma LEFT lower lobe. No pneumonia. No pericardial or pleural effusions. Heart size is normal. Small mediastinal and hilar lymph nodes. Largest lymph node at the LEFT hilum measures 8 mm mild atherosclerosis thoracic aorta. RIGHT jugular Mediport. Extensive soft tissue thickening surrounding the humeral heads from marked synovitis. Marked narrowing of the joint spaces of each shoulder. No osteoblastic or osteolytic bone disease. Abdomen CT: No metastatic disease within the liver. Gallbladder is mildly hydropic. Previously described stone is no longer present in the gallbladder lumen. Increased soft tissue in the kizzy hepatis. Common bile duct is measuring 1.2 cm. There is a tiny stone measuring 2 mm in the distal common bile duct that was not present on prior studies in the CBD. Common bile duct at the pancreatic head has increased in size. Mild dilatation of the pancreatic duct. Mild atrophy of the pancreas. Normal size spleen. No adrenal mass. No renal obstruction. Moderate atherosclerosis abdominal aorta. Mesenteric arteries are patent. Low-attenuation mass in the region of the pancreatic head measures 2.6 x 2.2 cm and is probably cystic lymph node. No change since 04/29/2025 but is new since 07/08/2023. Scattered mesenteric lymph nodes are identified. Majority of these lymph nodes have decreased in size since 04/29/2025 but they are still evident. Well distended stomach. Anastomotic sutures noted at the hepatic flexure remain intact. There is some very mild stranding in the pericolonic fat in the RIGHT upper quadrant. No mass identified. No ascites. Pelvic CT: No free fluid in the pelvis. Urinary bladder is normally distended. Small inguinal lymph nodes. The largest inguinal lymph node is round with enhancement measuring 13 mm in the LEFT inguinal region. Inguinal lymph nodes have decreased in size. Decrease in size of the neoplastic mass in the RIGHT pelvis encasing the external iliac artery. Mass now measures approximately 2.9 x 3.3 cm. Degenerative disc disease in the lumbar spine. No destructive bone process. There are few small sclerotic lesions in the pelvis and femoral heads. Mild changes of avascular necrosis in the RIGHT femoral head. CT/CT chest abdpel w/*[id number] IMPRESSION: 1. No evidence for metastatic disease to the lungs. 2. Largest lymph node in the chest measures 8 mm at the LEFT hilum. 3. No recurrent mass identified in the anastomotic sutures involving the RIGHT colon. 4. Overall there is been a moderate decrease in size of the metastatic lymph n odes in the abdomen and pelvis since 04/29/2025. 5. New common bile duct dilatation to 1.2 cm. There is a tiny stone measuring 2 mm in the distal common bile duct that was not present on the prior study. St one was noted in the gallbladder on the prior study. Recommend evaluation by ER CP. Pancreatic duct has also increased slightly in size. 6. Low-attenuation mass at the pancreatic head is likely a cystic lymph node. Slight decrease in size since 04/29/2025. Mass measures 2.6 x 2.2 cm.
[2025-08-19] MEDS: iohexol 350 mg/mL 500 mL Btl (per mL) PO (11:19)
[2025-08-19] MEDS: iohexol 350 mg/mL 500 mL Btl (per mL) IV (11:19)
[2025-08-24 07:57] LABS: Hematocrit 38.3 % (37-53); Hemoglobin 12.40 g/dL (11.27-16.99); Mean Corpuscular HGB Conc 32.4 g/dL (30-55); Mean Corpuscular Hemoglobin 28.8 pg (27-33); Mean Corpuscular Volume 88.9 fl (82-101); Nucleated Red Blood Cells % 0 %; Platelet Count 181 10^3/cmm (157-399); Red Blood Count 4.31 10^6/uL (3.85-5.65); White Blood Count 5.30 10^3/uL (3.29-11.43)
[2025-08-24 08:36] LABS: Alanine Aminotransferase 16 U/L (0-41); Albumin Level 3.6 g/dL (3.5-5.2); Alkaline Phosphatase 141 U/L (40-130); Anion Gap 15.4 (5-19); Aspartate Amino Transferase 19 U/L (0-40); Blood Urea Nitrogen 12 mg/dL (8-23); Calcium 8.8 mg/dL (8.5-10.5); Cancer Antigen 19 9 29.88 U/mL (0-35); Carbon Dioxide 26 mmol/L (22-29); Chloride 106 mmol/L (98-107); Ferritin 138 ng/mL (30-400); Globulin 2.5 g/dL (1.3-4.6); Glucose 86 mg/dL (65-115); Iron 48 ug/dL (59-158); Osmolality Calculated 297 mOsm/kg (285-295); Potassium 3.4 mmol/L (3.5-5.1); Sodium 144 mmol/L (136-145); Total Protein 6.1 g/dL (6.6-8.7); Vitamin B12 424 pg/mL (232-1245)
[2025-08-24] MEDS: dexamethasone 4 mg/mL INJ 5 mL 12 MG IVP (09:26)
[2025-08-24] MEDS: atropine 1 mg/mL SDV 1 mL 0.4 MG IV (12:21)
[2025-08-24 14:10] VITALS: RESP 16
[2025-08-24] MEDS: morphine 4 mg/mL SDV 1 mL 1 MG IVP (14:10)
[2025-08-24] MEDS: leucovorin 760 MG in dextrose 5% 250 ML 500 MG IV (14:55)
[2025-08-24] MEDS: fluorouraciL 4,600 MG in elastomeric pump 1 PUMP IV (15:34)
[2025-08-24 15:41] VITALS: BP 116/71; PULSE 66; RESP 17; TEMP 36.1; O2SAT 96
== END 2025-08-24 23:59 | disposition home or self-care (01) ==
PROVIDERS: PCP Family Medicine; Visit Provider Internal Medicine
DX: Z53.9 Procedure and treatment not carried out, unspecified reason; Z51.11 Encounter for antineoplastic chemotherapy; C25.0 Malignant neoplasm of head of pancreas; Z85.038 Personal history of other malignant neoplasm of large intestine; F17.210 Nicotine dependence, cigarettes, uncomplicated; Z95.828 Presence of other vascular implants and grafts; R11.0 Nausea; R53.83 Other fatigue; G89.3 Neoplasm related pain (acute) (chronic); D64.9 Anemia, unspecified; E87.6 Hypokalemia; E86.0 Dehydration
CPT/HCPCS: 71260; 74177; 80053; 82607; 82728; 82746; 83010; 83540; 83615; 85025; 85045; 86301; 96367; 96375; 96413; 96415; 96416; 96417; 96523; 99213; J0461; J0640; J1100; J1453; J2270; J2469; J3490; J7040; J7050; J7060; J9190; J9205; J9263